=== PATIENT | male | born 1965 | race Caucasian/White ===

== ENCOUNTER 2017-02-11 01:08 | Observation (INO) | payer OTHER, SELFPAY ==
[2017-02-11] MEDS ORDERED: ONDANSETRON 4 MG/2 ML VIAL IVP PRN (01:35)
[2017-02-11] MEDS ORDERED: NALOXONE 0.4 MG/ML 1 ML VIAL IV PRN (01:35)
[2017-02-11] MEDS ORDERED: HYDROmorphone 1 MG/ML 1 ML SYRINGE IV PRN (01:35)
[2017-02-11] MEDS ORDERED: KETOROLAC 30 MG/ML 1 ML VIAL IVP PRN (01:35)
[2017-02-11] MEDS ORDERED: LORazepam 2 MG/ML SYRINGE IV PRN (01:35)
--- NOTE | 2017-02-11 01:35 | ED ---
Pediatric HENT HPI - General Chief Complaint: ENT Stated Complaint: Esophageal Foreign Body Time Seen by Provider: 02/11/17 01:21 Source: patient, EMS, RN notes reviewed, old records reviewed Mode of arrival: EMS Limitations: no limitations - History of Present Illness Initial Comments: Is a 51-year-old male with chief complaint of eating a piece of sore line staking and stuck in his throat. He reports he went to [facility]. They tried glucagon and other measures to help pass the food bolus and it has not helped. Patient reports he is continuing to vomit and spit up his saliva. He denies any shortness of breath or chest pain. Patient reports that he feels the food stuck right in the xiphoid process. Denies any other associated symptoms like abdominal pain. He states he's tried carbonated beverages, warm beverages and medications and nothing is helping. Patient was transferred down here for surgical evaluation. Dr. Harris was contacted. - Related Data Home Medications Medication Instructions Recorded Confirmed No Known Home Medications [No 02/11/17 02/11/17 Known Home Medications] Allergies Allergy/AdvReac Type Severity Reaction Status Date / Time No Known Drug Allergies Allergy Unknown Verified 02/11/17 01:19 Review of Systems ROS Statement: Those systems with pertinent positive or pertinent negative responses have been documented in the HPI. ROS Other: All systems not noted in ROS Statement are negative. Past Medical History Past Medical History: Diabetes Mellitus, GERD/Reflux History of Any Multi-Drug Resistant Organisms: None Reported Past Surgical History: Hernia Repair Past Psychological History: No Psychological Hx Reported Smoking Status: Never smoker Past Alcohol Use History: Daily, Heavy Past Drug Use History: None Reported - Past Family History Father Family Medical History: Cancer, COPD, Hyperlipidemia, Hypertension Mother Family Medical History: Diabetes Mellitus, Rheumatoid Arthritis (RA) Additional Family Medical History / Comment(s): Diverticulitis General Exam - General Exam Comments Initial Comments: Well appearing 31-year-old male. No distress. Patient does appear somewhat uncomfortable and is continuing to vomit and spit up his saliva. Limitations: no limitations General appearance: alert, in no apparent distress Head exam: Present: atraumatic, normocephalic, normal inspection Eye exam: Present: normal appearance, PERRL, EOMI. Absent: scleral icterus, conjunctival injection, periorbital swelling ENT exam: Present: normal exam, mucous membranes moist Neck exam: Present: normal inspection. Absent: tenderness, meningismus, lymphadenopathy Respiratory exam: Present: normal lung sounds bilaterally. Absent: respiratory distress, wheezes, rales, rhonchi, stridor Cardiovascular Exam: Present: regular rate, normal rhythm, normal heart sounds. Absent: systolic murmur, diastolic murmur, rubs, gallop, clicks GI/Abdominal exam: Present: soft, normal bowel sounds. Absent: distended, tenderness, guarding, rebound, rigid Extremities exam: Present: normal inspection, full ROM, normal capillary refill. Absent: tenderness, pedal edema, joint swelling, calf tenderness Back exam: Present: normal inspection Neurological exam: Present: alert, oriented X3, CN II-XII intact Course Vital Signs 02/11/17 02/11/17 01:14 02:37 Temperature 98.2 F 97.6 F Pulse Rate 111 H 95 Respiratory 20 18 Rate Blood Pressure 132/77 123/75 O2 Sat by Pulse 97 95 Oximetry Medical Decision Making - Medical Decision Making This is a 51-year-old male presents emergency Department with chief complaint of Rudolph steak stuck in his esophagus. He reports that the pain is mainly in the sternal notch. Patient states he tried multiple measures to get out of [facility] here was transferred down here. Dr. Harris was contacted. Patient will have the food bolus removed in the morning. Patient will be admitted to observation and kept comfortable until the procedure. Disposition Clinical Impression: Esophageal foreign body Disposition: HOME SELF-CARE Condition: Good Time of Disposition: 01:35
[2017-02-11 02:39] VITALS: RESP 18
[2017-02-11] MEDS: SODIUM CHLORIDE 0.9% 1,000 ML IV SCH ×2 (02:39→11:54)
[2017-02-11 03:44] VITALS: BMI 23.0
[2017-02-11 06:58] LABS: Glucose,Whole Blood 104 mg/dL (75-99)
[2017-02-11] MEDS ORDERED: SODIUM CHLORIDE 0.9% 1,000 ML IV ONE (07:52)
[2017-02-11] MEDS ORDERED: LACTATED RINGERS 1,000 ML IV ONE (08:10)
[2017-02-11 08:13] VITALS: BP 113/71; PULSE 87; TEMP 98.7
[2017-02-11] MEDS ORDERED: PROPOFOL 10 MG/ML 20 ML VIAL IV ONE (08:14)
--- NOTE | 2017-02-11 08:30 | P.PCN ---
Date of Procedure: 02/11/17 Procedure(s) Performed: BRIEF HISTORY: Patient is a 51-year-old, pleasant, white male, was transferred from [facility] with acute for dysphagia. Patient was eating a piece of steak last night and could not swallow any further. He scheduled for an upper endoscopy with foreign body removal this morning. PROCEDURE PERFORMED: Esophagogastroduodenoscopy with biopsy and foreign body removal. PREOPERATIVE DIAGNOSIS: Today for dysphagia. IV sedation per anesthesia. PROCEDURE: After informed consent was obtained, the patient was brought into the endoscopy unit. IV sedation was administered by Anesthesia under continuous monitoring. Initially the Olympus GIF-140 video endoscope was inserted into the mouth. Esophagus intubated without any difficulty. It was gradually advanced into the midesophagus with there was a large piece of meat impacted. Using a snare the piece of meat was withdrawn along with the scope out of the mouth. Esophagus was intubated without any difficulty and was gradually advanced into the stomach and duodenum and carefully examined. The bulb and the second part of the duodenum appeared normal. The scope at this time was withdrawn to the stomach, adequately insufflated with air, and upon careful examination, mucosa of the antrum, body, cardia and the fundus appeared normal. The scope was then withdrawn into the esophagus. Small hiatal hernia noted. The GE junction was located at 38 cm from the incisors. There was long the Palacios's esophagus extending from 28-38 cm from the incisors and multiple biopsies were done from the area. There was an esophageal stricture at 28 cm from the incisors and just proximal to this stricture there are multiple erosions or ulcerations identified consistent with LA grade C reflux esophagitis. The rest of the esophagus appeared normal and the patient tolerated the procedure well. IMPRESSION: 1. Mid esophageal stricture with food impaction status post removal as described above. 2. 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 Multiple erosions or ulcerations this proximal to esophageal stricture consistent with LA grade C reflux esophagitis. RECOMMENDATIONS: The findings of this examination were discussed with the patient . He'll be started on a soft diet and will be discharged home today with outpatient follow-up in 2 weeks. He was advised to take Prilosec over-the- [id number] twice daily..
[2017-02-11] MEDS ORDERED: PANTOPRAZOLE 40 MG/10 ML VIAL IV SCH (09:00)
--- NOTE | 2017-02-11 09:47 | HP ---
DATE OF ADMISSION: 02/11/2017 REASON FOR ADMISSION: Acute food dysphagia. HISTORY OF PRESENT ILLNESS: Patient is a 51-year-old white male transferred from [facility] in the early hours of this morning with acute food dysphagia. Patient apparently went to the emergency room at [facility] with acute food dysphagia after eating a piece of steak last night. He never had similar symptoms in the past. Presently continues to have dysphagia, not able to swallow saliva. Denies any chest pain. PAST MEDICAL HISTORY: None. PAST SURGICAL HISTORY: None. MEDICATIONS AT HOME: None. ALLERGIES: No known drug allergies. SOCIAL HISTORY: No smoking or alcohol use. FAMILY HISTORY: Unremarkable. REVIEW OF SYSTEMS: CARDIOPULMONARY: No chest pain or shortness of breath. ( ) MUSCULOSKELETAL: Unremarkable. SKIN: Unremarkable. ENDOCRINE: Unremarkable. PSYCHIATRIC: Unremarkable. NEUROLOGICAL: Unremarkable. ENT/VISION: Unremarkable. CONSTITUTIONAL: No recent weight loss. PHYSICAL EXAMINATION: Blood pressure is 132/77, pulse is 98.2. HEENT: Unremarkable. Conjunctivae pink. Sclerae anicteric. Oral cavity, no lesions. NECK: No JVD or lymph node enlargement. CHEST: Clear to auscultation. HEART: Regular rate and rhythm. ABDOMEN: Soft. Bowel sounds are positive. No organomegaly. EXTREMITIES: No pedal edema. SKIN: No rashes. NEURO: Alert and oriented x3. No focal deficits. No labs done. IMPRESSION: Acute food dysphagia. PLAN: Will proceed with an upper endoscopy with foreign body removal. Patient understands the risks benefits and potential complications of the procedure.
[2017-02-11 11:55] LABS: Glucose,Whole Blood 94 mg/dL (75-99)
== END 2017-02-11 13:43 | disposition home or self-care (01) ==
LOC: EC 01:08 → 3OBS 02:03
PROVIDERS: ADMIT Internal Medicine Gastroenterology; ATTEND Internal Medicine Gastroenterology
DX: T18.128A Food in esophagus causing other injury, initial encounter (principal); K22.70 Barrett's esophagus without dysplasia; K22.2 Esophageal obstruction; Z82.5 Family history of asthma and other chronic lower respiratory diseases; Z82.49 Family history of ischemic heart disease and other diseases of the circulatory system; Z83.3 Family history of diabetes mellitus; X58.XXXA Exposure to other specified factors, initial encounter
CPT/HCPCS: 96374; 99285; 88305; 43239; 43247; G0378; J2060; J2405; J1170; J2704; C9113

== ENCOUNTER 2018-07-07 13:09 | Emergency (ER) | payer OTHER ==
[2018-07-07 13:30] VITALS: BP 121/80; PULSE 91; RESP 16; TEMP 97.8
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
== END 2018-07-07 14:10 | disposition home or self-care (01) ==
LOC: EC 13:09
DX: Z48.02 Encounter for removal of sutures (principal)
CPT/HCPCS: 99281

== ENCOUNTER 2019-01-17 07:07 | Day surgery (SDC) | payer OTHER ==
[2018-12-24 14:01] VITALS: BMI 26.6
--- NOTE | 2018-12-25 08:20 | P.GSHP ---
History of Present Illness H&P Date: 12/25/18 CHIEF COMPLAINT: GERD HISTORY OF PRESENT ILLNESS: The patient is a 53-year-old male who presents reports gastroesophageal reflux disease. Upper endoscopy was offered for further evaluation and management. PAST MEDICAL HISTORY: Please see list. PAST SURGICAL HISTORY: Please see list. MEDICATIONS: Please see list. ALLERGIES: Please see list. SOCIAL HISTORY: No illicit drug use FAMILY HISTORY: No reports of Crohn disease or ulcerative colitis. REVIEW OF ORGAN SYSTEMS: CONSTITUTIONAL: No reports of fevers or chills. GI: Denies any blood in stools or constipation. PHYSICAL EXAM: VITAL SIGNS: Stable GENERAL: Well-developed and pleasant in no acute distress. HEENT: No scleral icterus. Extraocular movements grossly intact. Moist buccal mucosa. NECK: Supple without lymphadenopathy. CHEST: Unlabored respirations. Equal bilateral excursions. CARDIOVASCULAR: Regular rate and rhythm. Distal 2+ pulses. ABDOMEN: Soft, nondistended. MUSCULOSKELETAL: No clubbing, cyanosis, or edema. ASSESSMENT: 1. Gastroesophageal reflux disease PLAN: 1. Recommend proceeding with an upper endoscopy Past Medical History Past Medical History: Diabetes Mellitus, GERD/Reflux Additional Past Medical History / Comment(s): diet controlled diabetic, hx hiatal hernia, History of Any Multi-Drug Resistant Organisms: None Reported Past Surgical History: Hernia Repair, Orthopedic Surgery Additional Past Surgical History / Comment(s): hiatal hernia repair, rt knee surgery Past Anesthesia/Blood Transfusion Reactions: No Reported Reaction Smoking Status: Never smoker - Past Family History Father Family Medical History: Cancer, COPD, Hyperlipidemia, Hypertension Mother Family Medical History: No Reported History Additional Family Medical History / Comment(s): Diverticulitis Medications and Allergies Home Medications Medication Instructions Recorded Confirmed Type No Known Home Medications 12/24/18 12/24/18 History Allergies Allergy/AdvReac Type Severity Reaction Status Date / Time No Known Drug Allergies Allergy Unknown Verified 12/24/18 13:56
--- NOTE | 2019-01-17 06:00 | P.GSHP ---
History of Present Illness H&P Date: 01/17/19 CHIEF COMPLAINT: GERD HISTORY OF PRESENT ILLNESS: The patient is a 53-year-old male who presents reports gastroesophageal reflux disease. Upper endoscopy was offered for further evaluation and management. PAST MEDICAL HISTORY: Please see list. PAST SURGICAL HISTORY: Please see list. MEDICATIONS: Please see list. ALLERGIES: Please see list. SOCIAL HISTORY: No illicit drug use FAMILY HISTORY: No reports of Crohn disease or ulcerative colitis. REVIEW OF ORGAN SYSTEMS: CONSTITUTIONAL: No reports of fevers or chills. GI: Denies any blood in stools or constipation. PHYSICAL EXAM: VITAL SIGNS: Stable GENERAL: Well-developed and pleasant in no acute distress. HEENT: No scleral icterus. Extraocular movements grossly intact. Moist buccal mucosa. NECK: Supple without lymphadenopathy. CHEST: Unlabored respirations. Equal bilateral excursions. CARDIOVASCULAR: Regular rate and rhythm. Distal 2+ pulses. ABDOMEN: Soft, nondistended. MUSCULOSKELETAL: No clubbing, cyanosis, or edema. ASSESSMENT: 1. Gastroesophageal reflux disease PLAN: 1. Recommend proceeding with an upper endoscopy Past Medical History Past Medical History: Diabetes Mellitus, GERD/Reflux Additional Past Medical History / Comment(s): diet controlled diabetic, hx hiatal hernia, History of Any Multi-Drug Resistant Organisms: None Reported Past Surgical History: Hernia Repair, Orthopedic Surgery Additional Past Surgical History / Comment(s): hiatal hernia repair, rt knee surgery Past Anesthesia/Blood Transfusion Reactions: No Reported Reaction Past Psychological History: No Psychological Hx Reported Smoking Status: Never smoker Past Alcohol Use History: Occasional Past Drug Use History: None Reported - Past Family History Father Family Medical History: Cancer, COPD, Hyperlipidemia, Hypertension Mother Family Medical History: No Reported History Additional Family Medical History / Comment(s): Diverticulitis Medications and Allergies Home Medications Medication Instructions Recorded Confirmed Type Acid Reflux Medication 1 tab PO DAILY 01/15/19 History Allergies Allergy/AdvReac Type Severity Reaction Status Date / Time No Known Drug Allergies Allergy Unknown Verified 01/15/19 15:17
[~2019-01-17 07:07] MED LIST: LACTATED RINGERS 1,000 ML IV SCH; LIDOCAINE 1% 20 ML VIAL (10MG/ML) FOR IV START INTRADERMA PRN
[2019-01-17 07:19] VITALS: RESP 16; TEMP 97.7
[2019-01-17] MEDS ORDERED: PROPOFOL 10 MG/ML 20 ML VIAL IV ONE (07:35)
--- NOTE | 2019-01-17 07:50 | P.PCN ---
Date of Procedure: 01/17/19 Description of Procedure: PREOPERATIVE DIAGNOSIS: Gastroesophageal reflux disease. History of Juanito fundoplasty POSTOPERATIVE DIAGNOSIS: Gastroesophageal reflux disease. History of Juanito fundoplasty Gastritis. Diaphragmatic hiatal hernia, paraesophageal type III OPERATION: Esophagogastroduodenoscopy with biopsies along antrum. SURGEON: Amarilis Byrne MD ANESTHESIA: MAC. INDICATIONS: The patient is a 53-year-old male who presents with a history of reflux disease. Benefits and risks of the procedure were described. Informed consent was obtained. DESCRIPTION: The patient was brought into the endoscopy suite and laid in the left lateral decubitus position. An Olympus gastroscope was passed along the posterior oropharynx down to the distal esophagus where the squamocolumnar junction was encountered at 31 cm from the incisors. The stomach was entered and no bile reflux was found. Additional findings are listed below. Biopsies with cold forceps were obtained of the antrum. The first through third portion of the duodenum was examined and unremarkable. Retroflexion of the scope confirmed Hill grade 4 lower esophageal valve. The squamocolumnar junction demonstrated LA grade B erosive esophagitis. The stomach was desufflated. The patient tolerated the procedure well. FINDINGS: Squamocolumnar junction 31 cm from the incisors. Diaphragmatic hiatus at 39 cm. Hiatal hernia, 8 cm, paraesophageal type III Hill grade 4 lower esophageal valve. LA grade B erosive esophagitis. No active duodenitis. Chronic gastritis, superficial Juanito fundoplasty with slippage into mediastinal RECOMMENDATIONS: Upper endoscopy as needed. Plan - Discharge Summary Discharge Rx Participant: No New Discharge Prescriptions: No Action Omeprazole 40 mg PO DAILY Discharge Medication List Omeprazole 40 mg PO DAILY 01/17/19 [History] Follow up Appointment(s)/Referral(s): Amarilis Byrne MD [STAFF PHYSICIAN] - 1 Week Patient Instructions/Handouts: Hiatal Hernia (DC) Discharge Disposition: HOME SELF-CARE
[2019-01-17 08:23] VITALS: BP 115/75; PULSE 65
== END 2019-01-17 08:40 | disposition home or self-care (01) ==
LOC: ORWHC2ENDO 07:07
PROVIDERS: ATTEND Surgery Plastic and Reconstructive Surgery
DX: K21.0 Gastro-esophageal reflux disease with esophagitis (principal); K29.50 Unspecified chronic gastritis without bleeding; K44.9 Diaphragmatic hernia without obstruction or gangrene; E11.9 Type 2 diabetes mellitus without complications; Z83.6 Family history of other diseases of the respiratory system; Z82.49 Family history of ischemic heart disease and other diseases of the circulatory system; Z80.9 Family history of malignant neoplasm, unspecified
CPT/HCPCS: 88305; 43239; J2704

== ENCOUNTER 2019-04-21 07:39 | Emergency (ER) | payer OTHER ==
[2019-04-21] MEDS ORDERED: SODIUM CHLORIDE 0.9% 1,000 ML IV STA (07:47)
--- NOTE | 2019-04-21 08:04 | ED ---
Dizziness HPI - General Chief Complaint: Syncope Stated Complaint: Near Syncope Time Seen by Provider: 04/21/19 07:47 Source: patient, EMS, RN notes reviewed Mode of arrival: EMS Limitations: no limitations - History of Present Illness Initial Comments: This a 53-year-old male presents emergency Department chief complaint of palpitations, dizziness. Patient states that he was on the bus riding to work in which he states that he started feeling his heart racing states that he had no associated pain but states is just beating fast. Patient states then he became very dizzy and lightheaded. Patient states his symptoms lasted a few minutes and he told the drug abuse treatment specialist called EMS at that time. Patient states symptoms have improved he has no complaints of palpitations or chest pain. Denies any shortness of breath. Patient did have some nausea no vomiting denies any focal weakness no blurred vision. Patient states he takes antiacids no other medications denies any smoking past medical history otherwise. Patient has no prior cardiac disease - Related Data Home Medications Medication Instructions Recorded Confirmed Omeprazole 40 mg PO DAILY 01/17/19 04/21/19 Allergies Allergy/AdvReac Type Severity Reaction Status Date / Time No Known Drug Allergies Allergy Unknown Verified 04/21/19 07:48 Review of Systems ROS Statement: Those systems with pertinent positive or pertinent negative responses have been documented in the HPI. ROS Other: All systems not noted in ROS Statement are negative. Past Medical History Past Medical History: Diabetes Mellitus, GERD/Reflux Additional Past Medical History / Comment(s): diet controlled diabetic, hx hiatal hernia, History of Any Multi-Drug Resistant Organisms: None Reported Past Surgical History: Hernia Repair, Orthopedic Surgery Additional Past Surgical History / Comment(s): hiatal hernia repair, rt knee surgery Past Anesthesia/Blood Transfusion Reactions: No Reported Reaction Past Psychological History: No Psychological Hx Reported Smoking Status: Never smoker Past Alcohol Use History: Occasional Past Drug Use History: None Reported - Past Family History Father Family Medical History: Cancer, COPD, Hyperlipidemia, Hypertension Mother Family Medical History: No Reported History Additional Family Medical History / Comment(s): Diverticulitis General Exam Limitations: no limitations General appearance: alert, in no apparent distress, anxious Head exam: Present: atraumatic, normocephalic, normal inspection Eye exam: Present: normal appearance, PERRL, EOMI. Absent: scleral icterus, conjunctival injection, periorbital swelling ENT exam: Present: normal exam, normal oropharynx, mucous membranes moist Neck exam: Present: normal inspection, full ROM. Absent: tenderness, meningismus, lymphadenopathy Respiratory exam: Present: normal lung sounds bilaterally. Absent: respiratory distress, wheezes, rales, rhonchi, stridor Cardiovascular Exam: Present: regular rate, normal rhythm, normal heart sounds. Absent: systolic murmur, diastolic murmur, rubs, gallop, clicks GI/Abdominal exam: Present: soft, normal bowel sounds. Absent: distended, tenderness, guarding, rebound, rigid Extremities exam: Present: normal inspection, full ROM, normal capillary refill. Absent: tenderness, pedal edema, joint swelling, calf tenderness Neurological exam: Present: alert, oriented X3, CN II-XII intact, reflexes normal. Absent: motor sensory deficit Psychiatric exam: Present: anxious Skin exam: Present: warm, dry, intact, normal color. Absent: rash Course Vital Signs 04/21/19 04/21/19 04/21/19 07:41 07:46 08:00 Temperature 98.4 F Pulse Rate 90 91 Respiratory 18 18 Rate Blood Pressure 128/89 114/91 O2 Sat by Pulse 98 100 97 Oximetry 04/21/19 08:20 Temperature Pulse Rate 85 Respiratory 16 Rate Blood Pressure 118/88 O2 Sat by Pulse 92 L Oximetry EKG Findings - EKG Comments: EKG Findings:: EKG performed at 17:53 normal sinus rhythm rate of 88 KS 166 QRS 82 QT/QTC 358/433 Medical Decision Making - Medical Decision Making 53-year-old male presented from for palpitations. Patient is a symptomatic this time. Patient does report an EKG, chest x-ray, labs and urinalysis. Patient's has no complaints of feeling dizzy. Patient feels comfortable discharge at time and will follow-up with PCP we did discuss return parameters. - Lab Data Result diagrams: 04/21/19 07:45 04/21/19 07:45 Lab Results 04/21/19 04/21/19 04/21/19 Range/Units 07:45 07:45 07:45 WBC 5.7 (3.8-10.6) k/uL RBC 5.08 (4.30-5.90) m/uL Hgb 15.4 (13.0-17.5) gm/dL Hct 47.7 (39.0-53.0) % MCV 94.0 (80.0-100.0) fL MCH 30.2 (25.0-35.0) pg MCHC 32.2 (31.0-37.0) g/dL RDW 14.1 (11.5-15.5) % Plt Count 166 (150-450) k/uL Neutrophils % 73 % Lymphocytes % 18 % Monocytes % 4 % Eosinophils % 3 % Basophils % 0 % Neutrophils # 4.1 (1.3-7.7) k/uL Lymphocytes # 1.0 (1.0-4.8) k/uL Monocytes # 0.2 (0-1.0) k/uL Eosinophils # 0.1 (0-0.7) k/uL Basophils # 0.0 (0-0.2) k/uL PT 9.6 (9.0-12.0) sec INR 0.9 (<1.2) APTT 22.5 (22.0-30.0) sec Sodium 139 (137-145) mmol/L Potassium 4.5 (3.5-5.1) mmol/L Chloride 102 (98-107) mmol/L Carbon Dioxide 25 (22-30) mmol/L Anion Gap 12 mmol/L BUN 14 (9-20) mg/dL Creatinine 0.83 (0.66-1.25) mg/dL Est GFR (CKD-EPI)AfAm >90 (>60 ml/min/1.73 sqM) Est GFR (CKD-EPI)NonAf >90 (>60 ml/min/1.73 sqM) Glucose 148 H (74-99) mg/dL Calcium 9.3 (8.4-10.2) mg/dL Magnesium 1.8 (1.6-2.3) mg/dL Total Bilirubin 0.3 (0.2-1.3) mg/dL AST 28 (17-59) U/L ALT 23 (21-72) U/L Alkaline Phosphatase 75 (38-126) U/L Troponin I (0.000-0.034) ng/mL Total Protein 6.5 (6.3-8.2) g/dL Albumin 4.0 (3.5-5.0) g/dL TSH 1.520 (0.465-4.680) mIU/L Urine Color Urine Appearance (Clear) Urine pH (5.0-8.0) Ur Specific [place] (1.001-1.035) Urine Protein (Negative) Urine Glucose (UA) (Negative) Urine Ketones (Negative) Urine Blood (Negative) Urine Nitrite (Negative) Urine Bilirubin (Negative) Urine Urobilinogen (<2.0) mg/dL Ur Leukocyte Esterase (Negative) 04/21/19 04/21/19 Range/Units 07:45 08:35 WBC (3.8-10.6) k/uL RBC (4.30-5.90) m/uL Hgb (13.0-17.5) gm/dL Hct (39.0-53.0) % MCV (80.0-100.0) fL MCH (25.0-35.0) pg MCHC (31.0-37.0) g/dL RDW (11.5-15.5) % Plt Count (150-450) k/uL Neutrophils % % Lymphocytes % % Monocytes % % Eosinophils % % Basophils % % Neutrophils # (1.3-7.7) k/uL Lymphocytes # (1.0-4.8) k/uL Monocytes # (0-1.0) k/uL Eosinophils # (0-0.7) k/uL Basophils # (0-0.2) k/uL PT (9.0-12.0) sec INR (<1.2) APTT (22.0-30.0) sec Sodium (137-145) mmol/L Potassium (3.5-5.1) mmol/L Chloride (98-107) mmol/L Carbon Dioxide (22-30) mmol/L Anion Gap mmol/L BUN (9-20) mg/dL Creatinine (0.66-1.25) mg/dL Est GFR (CKD-EPI)AfAm (>60 ml/min/1.73 sqM) Est GFR (CKD-EPI)NonAf (>60 ml/min/1.73 sqM) Glucose (74-99) mg/dL Calcium (8.4-10.2) mg/dL Magnesium (1.6-2.3) mg/dL Total Bilirubin (0.2-1.3) mg/dL AST (17-59) U/L ALT (21-72) U/L Alkaline Phosphatase (38-126) U/L Troponin I <0.012 (0.000-0.034) ng/mL Total Protein (6.3-8.2) g/dL Albumin (3.5-5.0) g/dL TSH (0.465-4.680) mIU/L Urine Color Yellow Urine Appearance Clear (Clear) Urine pH 5.0 (5.0-8.0) Ur Specific [place] 1.021 (1.001-1.035) Urine Protein Negative (Negative) Urine Glucose (UA) Negative (Negative) Urine Ketones 1+ H (Negative) Urine Blood Negative (Negative) Urine Nitrite Negative (Negative) Urine Bilirubin Negative (Negative) Urine Urobilinogen <2.0 (<2.0) mg/dL Ur Leukocyte Esterase Negative (Negative) Disposition Clinical Impression: Palpitations Disposition: HOME SELF-CARE Condition: Stable Instructions (If sedation given, give patient instructions): Heart Palpitations (ED) Additional Instructions: Please return to the Emergency Department if symptoms worsen or any other concerns. Is patient prescribed a controlled substance at d/c from ED?: No Referrals: Nonstaff,Physician [Primary Care Provider] - 1-2 days Time of Disposition: 09:53
[2019-04-21 08:11] LABS: Basophils % (A) 0 %; Eosinophils # (A) 0.1 k/uL (0-0.7); Eosinophils % (A) 3 %; HCT 47.7 % (39.0-53.0); HGB 15.4 gm/dL (13.0-17.5); Lymphocytes % (A) 18 %; MCH 30.2 pg (25.0-35.0); MCHC 32.2 g/dL (31.0-37.0); Mean Platelet Volume 7.8; Monocytes # (A) 0.2 k/uL (0-1.0); Monocytes % (A) 4 %; Neutrophils # (A) 4.1 k/uL (1.3-7.7); Neutrophils % (A) 73 %; Platelet Count 166 k/uL (150-450); RBC 5.08 m/uL (4.30-5.90); RDW 14.1 % (11.5-15.5); WBC 5.7 k/uL (3.8-10.6)
[2019-04-21 08:19] LABS: INR 0.9 (<1.2); Partial Thromboplastin Time 22.5 sec (22.0-30.0); Prothrombin Time 9.6 sec (9.0-12.0)
[2019-04-21 08:27] LABS: ALT 23 U/L (21-72); AST 28 U/L (17-59); African American GFR (CKD) >90 (>60 ml/min/1.73 sqM); Alkaline Phosphatase 75 U/L (38-126); Anion Gap 12 mmol/L; Blood Urea Nitrogen 14 mg/dL (9-20); Calcium 9.3 mg/dL (8.4-10.2); Carbon Dioxide 25 mmol/L (22-30); Chloride 102 mmol/L (98-107); Glucose 148 mg/dL (74-99); Magnesium 1.8 mg/dL (1.6-2.3); Potassium 4.5 mmol/L (3.5-5.1); Sodium 139 mmol/L (137-145); Total Bilirubin 0.3 mg/dL (0.2-1.3); Total Protein 6.5 g/dL (6.3-8.2)
--- NOTE | 2019-04-21 08:38 | XR ---
EXAMINATION TYPE: XR chest 2V DATE OF EXAM: 04/21/2019 COMPARISON: 06/27/2016 INDICATION: Syncope, chest pain TECHNIQUE: Frontal and lateral views of the chest are obtained. FINDINGS: The heart size is normal. The pulmonary vasculature is normal. The lungs are clear. IMPRESSION: 1. No acute pulmonary process.
[2019-04-21 08:50] LABS: Appearance,Urine Clear (Clear); Bilirubin,Urine Negative (Negative); Blood,Urine Negative (Negative); Color,Urine Yellow; Glucose,Urine (UA) Negative (Negative); Ketones,Urine 1+ (Negative); Leukocyte Esterase,Urine Negative (Negative); Nitrite,Urine Negative (Negative); Protein,Urine Negative (Negative); Specific Gravity,Urine 1.021 (1.001-1.035); Urobilinogen,Urine <2.0 mg/dL (<2.0)
[2019-04-21 10:48] VITALS: BP 115/87; PULSE 87; RESP 18; TEMP 97.1
== END 2019-04-21 10:48 | disposition home or self-care (01) ==
LOC: EC 07:39
DX: R00.2 Palpitations (principal); R42 Dizziness and giddiness; R11.0 Nausea; K21.9 Gastro-esophageal reflux disease without esophagitis; E11.9 Type 2 diabetes mellitus without complications; Z79.899 Other long term (current) drug therapy; Z82.49 Family history of ischemic heart disease and other diseases of the circulatory system
CPT/HCPCS: 36415; 71046; 80053; 81003; 83735; 84443; 84484; 85025; 85610; 85730; 93005; 96360; 96361; 99285

== ENCOUNTER 2019-12-18 20:02 | Observation (INO) | payer OTHER ==
[2019-12-18] MEDS ORDERED: LORazepam 2 MG/ML INJ IM STA (21:16)
[2019-12-18] MEDS ORDERED: diphenhydrAMINE 50 MG/ML 1 ML VIAL IM STA (21:16)
[2019-12-18 21:36] LABS: Basophils % (A) 1 %; Eosinophils # (A) 0.1 k/uL (0-0.7); Eosinophils % (A) 2 %; HCT 44.9 % (39.0-53.0); HGB 14.9 gm/dL (13.0-17.5); Lymphocytes # (A) 1.6 k/uL (1.0-4.8); Lymphocytes % (A) 35 %; MCH 32.8 pg (25.0-35.0); MCHC 33.1 g/dL (31.0-37.0); MCV 99.3 fL (80.0-100.0); Mean Platelet Volume 7.6; Monocytes # (A) 0.3 k/uL (0-1.0); Monocytes % (A) 6 %; Neutrophils # (A) 2.5 k/uL (1.3-7.7); Neutrophils % (A) 54 %; Platelet Count 237 k/uL (150-450); RBC 4.52 m/uL (4.30-5.90); RDW 13.2 % (11.5-15.5); WBC 4.6 k/uL (3.8-10.6)
[2019-12-18 21:46] LABS: ALT 40 U/L (4-49); AST 76 U/L (17-59); African American GFR (CKD) >90 (>60 ml/min/1.73 sqM); Albumin 3.4 g/dL (3.5-5.0); Alkaline Phosphatase 76 U/L (38-126); Amphetamine Screen,Urine Not Detected (NotDetected); Anion Gap 8 mmol/L; Barbiturate Screen,Urine Not Detected (NotDetected); Benzodiazepines Screen,Urine Detected (NotDetected); Blood Urea Nitrogen 8 mg/dL (9-20); Calcium 8.3 mg/dL (8.4-10.2); Carbon Dioxide 25 mmol/L (22-30); Chloride 108 mmol/L (98-107); Cocaine Screen,Urine Not Detected (NotDetected); Glucose 118 mg/dL (74-99); Methadone Screen, Urine Not Detected (NotDetected); Non-African American GFR(CKD) >90 (>60 ml/min/1.73 sqM); Opiate Screen,Urine Not Detected (NotDetected); Oxycodone Screen, Urine Not Detected (NotDetected); Phencyclidine Screen,Urine Not Detected (NotDetected); Potassium 4.3 mmol/L (3.5-5.1); Sodium 141 mmol/L (137-145); Total Bilirubin <0.1 mg/dL (0.2-1.3); Total Protein 5.9 g/dL (6.3-8.2); Tricyclic Antidepressant,Urine Not Detected (NotDetected); Urn Cannabinoid Scrn Not Detected (NotDetected)
[2019-12-18 21:59] LABS: Alcohol 274 mg/dL
[2019-12-18] MEDS ORDERED: NALOXONE 0.4 MG/ML 1 ML VIAL IV PRN (22:17)
--- NOTE | 2019-12-18 22:20 | ED ---
Psych HPI - General Chief Complaint: Psychiatric Symptoms Stated Complaint: Mental Health Time Seen by Provider: 12/18/19 20:17 Source: patient - History of Present Illness Initial Comments: Patient is a 54-year-old male with past history of diabetes and reflux who presents to the emergency department accompanied by police. The patient has been petitioned for voicing suicidal thoughts. The patient reports that his tenant called as he was concerned about his mental health. The patient does admit that he lost his fiance close to 9 years ago. Her was in the beginning of January. He states that around this time he becomes very depressed and "to drink daily. The alcohol does accelerate his depression. He did make some comments that he wanted to harm himself. He does follow up with a y chiatrist in regard to his symptoms. States he's never required inpatient hospitalization. Police did escort the patient to the hospital. He does agree that he made these statements. He is combative with staff and attempting to leave. He denies use of any other substances in an attempt to harm himself. Denies any homicidal thoughts. No hallucinations or delusions. There are no other alleviating, precipitating or modifying factors - Related Data Home Medications Medication Instructions Recorded Confirmed Omeprazole 40 mg PO DAILY@0500 01/17/19 12/19/19 Previous Rx's Medication Instructions Recorded Thiamine [Vitamin B-1] 100 mg PO DAILY tab 12/20/19 Allergies Allergy/AdvReac Type Severity Reaction Status Date / Time No Known Drug Allergies Allergy Unknown Verified 12/19/19 08:14 Review of Systems ROS Statement: Those systems with pertinent positive or pertinent negative responses have been documented in the HPI. ROS Other: All systems not noted in ROS Statement are negative. Past Medical History Past Medical History: Diabetes Mellitus, GERD/Reflux Additional Past Medical History / Comment(s): diet controlled diabetic, hx hiatal hernia, History of Any Multi-Drug Resistant Organisms: None Reported Past Surgical History: Hernia Repair, Orthopedic Surgery Additional Past Surgical History / Comment(s): hiatal hernia repair, rt knee surgery Past Anesthesia/Blood Transfusion Reactions: No Reported Reaction Past Psychological History: No Psychological Hx Reported Smoking Status: Never smoker Past Alcohol Use History: Occasional Past Drug Use History: None Reported - Past Family History Father Family Medical History: Cancer, COPD, Hyperlipidemia, Hypertension Mother Family Medical History: No Reported History Additional Family Medical History / Comment(s): Diverticulitis General Exam General appearance: alert, appears intoxicated Head exam: Present: atraumatic, normocephalic, normal inspection Eye exam: Present: normal appearance, PERRL, EOMI. Absent: scleral icterus, conjunctival injection, periorbital swelling ENT exam: Present: normal exam, mucous membranes moist Neck exam: Present: normal inspection. Absent: tenderness, meningismus, lymphadenopathy Respiratory exam: Present: normal lung sounds bilaterally. Absent: respiratory distress, wheezes, rales, rhonchi, stridor Cardiovascular Exam: Present: regular rate, normal rhythm, normal heart sounds. Absent: systolic murmur, diastolic murmur, rubs, gallop, clicks GI/Abdominal exam: Present: soft, normal bowel sounds. Absent: distended, tenderness, guarding, rebound, rigid Extremities exam: Present: normal inspection, full ROM, normal capillary refill. Absent: tenderness, pedal edema, joint swelling, calf tenderness Back exam: Present: normal inspection Neurological exam: Present: altered, oriented X3, CN II-XII intact Psychiatric exam: Present: depressed, agitated Skin exam: Present: warm, dry, intact, normal color. Absent: rash Course Vital Signs 12/18/19 12/19/19 20:15 02:30 Temperature 98 F 97.6 F Pulse Rate 104 H 84 Respiratory 18 16 Rate Blood Pressure 130/84 106/80 O2 Sat by Pulse 95 96 Oximetry Medical Decision Making - Medical Decision Making Upon arrival the patient was placed into room 13. Breathalyzer testing was performed and the patient does have been alcohol level of 289. I am able to perform my initial assessment on the patient. The patient then becomes combative and attempts to leave. The patient was given 50 mg of Benadryl and 2 mg of Ativan IM. The patient then becomes sedated enough to where we are complete laboratory studies on the patient. Urine drug screen does demonstrate benzodiazepines. Alcohol level is 274. Because the patient's elevated blood alcohol level I did recommend hospitalization until the patient is sober for which then psychiatry can consult. The patient was admitted to Dr. Tao. He is awaiting a bed on the floor - Lab Data Result diagrams: 12/19/19 08:38 12/19/19 08:38 Lab Results 12/18/19 12/18/19 12/18/19 Range/Units 21:25 21:25 21:25 WBC 4.6 (3.8-10.6) k/uL RBC 4.52 (4.30-5.90) m/uL Hgb 14.9 (13.0-17.5) gm/dL Hct 44.9 (39.0-53.0) % MCV 99.3 (80.0-100.0) fL MCH 32.8 (25.0-35.0) pg MCHC 33.1 (31.0-37.0) g/dL RDW 13.2 (11.5-15.5) % Plt Count 237 (150-450) k/uL Neutrophils % 54 % Lymphocytes % 35 % Monocytes % 6 % Eosinophils % 2 % Basophils % 1 % Neutrophils # 2.5 (1.3-7.7) k/uL Lymphocytes # 1.6 (1.0-4.8) k/uL Monocytes # 0.3 (0-1.0) k/uL Eosinophils # 0.1 (0-0.7) k/uL Basophils # 0.0 (0-0.2) k/uL Sodium 141 (137-145) mmol/L Potassium 4.3 (3.5-5.1) mmol/L Chloride 108 H (98-107) mmol/L Carbon Dioxide 25 (22-30) mmol/L Anion Gap 8 mmol/L BUN 8 L (9-20) mg/dL Creatinine 0.83 (0.66-1.25) mg/dL Est GFR (CKD-EPI)AfAm >90 (>60 ml/min/1.73 sqM) Est GFR (CKD-EPI)NonAf >90 (>60 ml/min/1.73 sqM) Glucose 118 H (74-99) mg/dL Calcium 8.3 L (8.4-10.2) mg/dL Total Bilirubin <0.1 L (0.2-1.3) mg/dL AST 76 H (17-59) U/L ALT 40 (4-49) U/L Alkaline Phosphatase 76 (38-126) U/L Total Protein 5.9 L (6.3-8.2) g/dL Albumin 3.4 L (3.5-5.0) g/dL Urine Opiates Screen Not Detected (NotDetected) Ur Oxycodone Screen Not Detected (NotDetected) Urine Methadone Screen Not Detected (NotDetected) Ur Propoxyphene Screen Not Detected (NotDetected) Ur Barbiturates Screen Not Detected (NotDetected) U Tricyclic Antidepress Not Detected (NotDetected) Ur Phencyclidine Scrn Not Detected (NotDetected) Ur Amphetamines Screen Not Detected (NotDetected) U Methamphetamines Scrn Not Detected (NotDetected) U Benzodiazepines Scrn Detected H (NotDetected) Urine Cocaine Screen Not Detected (NotDetected) U Marijuana (THC) Screen Not Detected (NotDetected) Serum Alcohol 274 H* mg/dL Disposition Clinical Impression: Depression, Alcohol intoxication Disposition: ADMITTED IP TO THIS [facility] Condition: Stable Is patient prescribed a controlled substance at d/c from ED?: No Decision to Admit Reason: Admit from EC Decision Date: 12/18/19 Decision Time: 22:16
[2019-12-18] MEDS ORDERED: THIAMINE 100 MG/ML 2 ML VIAL IM STA (23:30)
[2019-12-18] MEDS ORDERED: LORazepam 2 MG/ML INJ IV PRN ×2 (23:30)
[2019-12-19] MEDS: THIAMINE 100 MG TAB PO SCH ×3 (02:39→19:11)
[2019-12-19 09:01] LABS: Basophils % (A) 1 %; Eosinophils # (A) 0.1 k/uL (0-0.7); Eosinophils % (A) 2 %; HCT 40.2 % (39.0-53.0); HGB 13.3 gm/dL (13.0-17.5); Lymphocytes # (A) 0.8 k/uL (1.0-4.8); Lymphocytes % (A) 21 %; MCH 32.8 pg (25.0-35.0); MCV 99.3 fL (80.0-100.0); Mean Platelet Volume 7.9; Monocytes # (A) 0.3 k/uL (0-1.0); Monocytes % (A) 7 %; Neutrophils # (A) 2.7 k/uL (1.3-7.7); Neutrophils % (A) 67 %; Platelet Count 200 k/uL (150-450); RBC 4.05 m/uL (4.30-5.90); RDW 13.1 % (11.5-15.5)
[2019-12-19 09:32] LABS: African American GFR (CKD) >90 (>60 ml/min/1.73 sqM); Anion Gap 6 mmol/L; Blood Urea Nitrogen 9 mg/dL (9-20); Calcium 8.2 mg/dL (8.4-10.2); Carbon Dioxide 26 mmol/L (22-30); Chloride 105 mmol/L (98-107); Glucose 105 mg/dL (74-99); Non-African American GFR(CKD) >90 (>60 ml/min/1.73 sqM); Potassium 4.3 mmol/L (3.5-5.1); Sodium 137 mmol/L (137-145)
[2019-12-19] MEDS: LORazepam 2 MG/ML INJ IV PRN ×2 (09:43→19:29)
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
--- NOTE | 2019-12-19 15:52 | P.HPIM ---
History of Present Illness 54-year-old male came in after he was petitioned as he wants to blow his brains out with a done. Patient the was intoxicated with alcohol yesterday. Patient denies any suicidal ideations now but patient is severely depressed and that is almost tearful while interviewing the patient. Patient has been drinking alcohol regular basis admits to drinking only 2 drinks per day now but patient is having significant withdrawals today morning. Patient has been depressed since the demise of his fiance 6 years ago. Patient has multiple "appointments because of which doesn't want to go to psychiatric floor wanted to go to [facility]. Psychiatric evaluated the patient is recommending inpatient psychiatric hospitalization. Blood alcohol level on admission is 274 patient denied any fever chills abdominal pain nausea vomiting diarrhea. Review of Systems REVIEW OF SYSTEMS: CONSTITUTIONAL: No fever, no malaise, no fatigue. HEENT: No recent visual problems or hearing problems. Denied any sore throat. CARDIOVASCULAR: No chest pain, orthopnea, PND, no palpitations, no syncope. PULMONARY: No shortness of breath, no cough, no hemoptysis. GASTROINTESTINAL: No diarrhea, no nausea, no vomiting, no abdominal pain. NEUROLOGICAL: No headaches, no weakness, no numbness. HEMATOLOGICAL: Denies any bleeding or petechiae. GENITOURINARY: Denies any burning micturition, frequency, or urgency. MUSCULOSKELETAL/RHEUMATOLOGICAL: Denies any joint pain, swelling, or any muscle pain. ENDOCRINE: Denies any polyuria or polydipsia. The rest of the 14-point review of systems is negative. Past Medical History Past Medical History: Diabetes Mellitus, GERD/Reflux Additional Past Medical History / Comment(s): diet controlled diabetic, hx hiatal hernia, History of Any Multi-Drug Resistant Organisms: None Reported Past Surgical History: Hernia Repair, Orthopedic Surgery Additional Past Surgical History / Comment(s): hiatal hernia repair, rt knee surgery Past Anesthesia/Blood Transfusion Reactions: No Reported Reaction Past Psychological History: No Psychological Hx Reported Smoking Status: Never smoker Past Alcohol Use History: Occasional Past Drug Use History: None Reported - Past Family History Father Family Medical History: Cancer, COPD, Hyperlipidemia, Hypertension Mother Family Medical History: No Reported History Additional Family Medical History / Comment(s): Diverticulitis Medications and Allergies Home Medications Medication Instructions Recorded Confirmed Type Omeprazole 40 mg PO DAILY@0500 01/17/19 12/19/19 History Allergies Allergy/AdvReac Type Severity Reaction Status Date / Time No Known Drug Allergies Allergy Unknown Verified 12/19/19 08:14 Physical Exam Vitals: Vital Signs Temp Pulse Pulse Resp BP BP Pulse Ox 12/19/19 08:00 69 17 12/19/19 07:00 98.3 F 69 17 107/53 97 12/19/19 03:20 98.6 F 69 17 115/77 93 L 12/19/19 02:30 97.6 F 84 16 106/80 96 12/18/19 20:15 98 F 104 H 18 130/84 95 Intake and Output 12/19/19 12/19/19 12/19/19 06:59 14:59 22:59 Intake Total 480 450 Balance 480 450 Intake: Oral 480 450 Other: # Voids 3 Weight 86.183 kg PHYSICAL EXAMINATION: GENERAL: The patient is alert and oriented x3, not in any acute distress. Obe se. Appears to be depressed really tearful HEENT: Pupils are round and equally reacting to light. EOMI. No scleral icterus. No conjunctival pallor. Normocephalic, atraumatic. No pharyngeal erythema. No thyromegaly. CARDIOVASCULAR: S1 and S2 present. No murmurs, rubs, or gallops. PULMONARY: Chest is clear to auscultation, no wheezing or crackles. ABDOMEN: Soft, nontender, nondistended, normoactive bowel sounds. No palpable organomegaly. MUSCULOSKELETAL: No joint swelling or deformity. EXTREMITIES: No cyanosis, clubbing, or pedal edema. NEUROLOGICAL: Gross neurological examination did not reveal any focal deficits. SKIN: No rashes. Results CBC & Chem 7: 12/19/19 08:38 12/19/19 08:38 Labs: Abnormal Lab Results - Last 24 Hours (Table) 12/18/19 12/18/19 12/19/19 Range/Units 21:25 21:25 08:38 RBC 4.05 L (4.30-5.90) m/uL Lymphocytes # 0.8 L (1.0-4.8) k/uL Chloride 108 H (98-107) mmol/L BUN 8 L (9-20) mg/dL Glucose 118 H (74-99) mg/dL Calcium 8.3 L (8.4-10.2) mg/dL Total Bilirubin <0.1 L (0.2-1.3) mg/dL AST 76 H (17-59) U/L Total Protein 5.9 L (6.3-8.2) g/dL Albumin 3.4 L (3.5-5.0) g/dL U Benzodiazepines Scrn Detected H (NotDetected) Serum Alcohol 274 H* mg/dL 12/19/19 Range/Units 08:38 RBC (4.30-5.90) m/uL Lymphocytes # (1.0-4.8) k/uL Chloride (98-107) mmol/L BUN (9-20) mg/dL Glucose 105 H (74-99) mg/dL Calcium 8.2 L (8.4-10.2) mg/dL Total Bilirubin (0.2-1.3) mg/dL AST (17-59) U/L Total Protein (6.3-8.2) g/dL Albumin (3.5-5.0) g/dL U Benzodiazepines Scrn (NotDetected) Serum Alcohol mg/dL Assessment and Plan Plan: -Alcohol abuse: Counseling was provided. Patient was started on thiamine mult ivitamin supplementation -Major depression suicidal ideation patient is a sitter in place will be di scharged most probably tomorrow to psychiatric facility -Alcohol withdrawal: Patient is on Ativan CIWA protocol will be monitored overnight today. He doesn't have significant withdrawals patient will be cleared medically to be discharged to psychiatric floor -Gastroesophageal reflux disease
[2019-12-19] MEDS: PANTOPRAZOLE 40 MG TABLET PO SCH (19:16)
[2019-12-20] MEDS: THIAMINE 100 MG TAB PO SCH ×2 (07:10→16:49)
[2019-12-20] MEDS: PANTOPRAZOLE 40 MG TABLET PO SCH (07:10)
--- NOTE | 2019-12-20 12:02 | P.DS ---
Providers Date of admission: 12/18/19 22:17 Attending physician: Amparo Tao Consults: 12/18/19 22:17 Consult Physician Urgent Consulting Provider: Jeremy Frost Consult Reason/Comments: depression with reported suicidal ideations Do you want consulting provider notified?: Yes Primary care physician: Devin Bauman MD Hospital Course: 54-year-old male came in after he was petitioned as he wants to blow his brains out with a done. Patient the was intoxicated with alcohol yesterday. Patient denies any suicidal ideations now but patient is severely depressed and that is almost tearful while interviewing the patient. Patient has been drinking alcohol regular basis admits to drinking only 2 drinks per day now but patient is having significant withdrawals today morning. Patient has been depressed since the demise of his fiance 6 years ago. Patient has multiple "appointments because of which doesn't want to go to psychiatric floor wanted to go to [facility]. Psychiatric evaluated the patient is recommending inpatient psychiatric hospitalization. Blood alcohol level on admission is 274 patient denied any fever chills abdominal pain nausea vomiting diarrhea. 12/20/2019 No overnight events patient only required one and Ativan last night patient is medically stable to be discharged to psychiatric floor. PHYSICAL EXAMINATION: GENERAL: The patient is alert and oriented x3, not in any acute distress. Obese. Appears to be depressed really tearful HEENT: Pupils are round and equally reacting to light. EOMI. No scleral icterus. No conjunctival pallor. Normocephalic, atraumatic. No pharyngeal erythema. No thyromegaly. CARDIOVASCULAR: S1 and S2 present. No murmurs, rubs, or gallops. PULMONARY: Chest is clear to auscultation, no wheezing or crackles. ABDOMEN: Soft, nontender, nondistended, normoactive bowel sounds. No palpable organomegaly. MUSCULOSKELETAL: No joint swelling or deformity. EXTREMITIES: No cyanosis, clubbing, or pedal edema. NEUROLOGICAL: Gross neurological examination did not reveal any focal deficits. SKIN: No rashes. Assessment and Plan Plan: -Alcohol abuse: -Major depression suicidal ideation, patient will be discharged to psychiatric floor -Alcohol withdrawal: Patient is on Ativan CIWA protocol, no withdrawal at this time -Gastroesophageal reflux disease Patient Condition at Discharge: Stable Plan - Discharge Summary New Discharge Prescriptions: Continue Omeprazole 40 mg PO DAILY@0500 Discharge Medication List Omeprazole 40 mg PO DAILY@0500 01/17/19 [History] Follow up Appointment(s)/Referral(s): Devin Bauman MD [Primary Care Provider] - 1-2 days Discharge Disposition: TRANSFER TO PSYCH HOSP/UNIT
[2019-12-20 15:49] VITALS: BP 113/71; PULSE 90; RESP 17; TEMP 99.7
== END 2019-12-20 18:43 | disposition home or self-care (01) ==
LOC: EC 20:02 → 5NMEDONC 22:17 → 4SSUR 12-19 02:20
PROVIDERS: ADMIT Hospitalist; ATTEND Hospitalist
DX: F10.229 Alcohol dependence with intoxication, unspecified (principal); F32.9 Major depressive disorder, single episode, unspecified; F43.10 Post-traumatic stress disorder, unspecified; R45.851 Suicidal ideations; E11.9 Type 2 diabetes mellitus without complications; K21.9 Gastro-esophageal reflux disease without esophagitis; Y90.8 Blood alcohol level of 240 mg/100 ml or more; Z79.899 Other long term (current) drug therapy; Z82.5 Family history of asthma and other chronic lower respiratory diseases; Z82.49 Family history of ischemic heart disease and other diseases of the circulatory system; Z83.430 Family history of elevated lipoprotein(a); Z80.9 Family history of malignant neoplasm, unspecified; Z83.79 Family history of other diseases of the digestive system
CPT/HCPCS: 96376; 96374; 82075; 96372 ×2; 99284; 36415; 80053; 80048; 85025 ×2; 80306; G0378 ×4; G0480; J2060 ×2; J1200; J3411; 80320

== ENCOUNTER 2020-10-03 00:04 | Emergency (ER) | payer OTHER ==
[2020-10-03] MEDS ORDERED: AMOXIC-POT CLAV 875-125MG 1 EACH TAB PO STA (01:33)
--- NOTE | 2020-10-03 07:41 | ED ---
Psych HPI - General Source: patient Mode of arrival: ambulatory - History of Present Illness MD Complaint: suicidal ideation -: minutes(s) Associated Psychiatric Symptoms: none, visual hallucinations Quality: resolved prior to arrival Improves With: none Worsens With: none <Rodrigue Muse - Last Filed: 10/03/20 07:38> <Kennedy Lema - Last Filed: 10/03/20 13:12> - General Chief Complaint: Psychiatric Symptoms Stated Complaint: Mental Health Time Seen by Provider: 10/03/20 00:22 - History of Present Illness Initial Comments: Patient's 55-year-old man brought to have psychiatric evaluation. Police were called to his residence by roommates after he had been having hallucination of a spider crawling on his arm. While the police were there, the patient is alleged to have formed a gun with his hand and put against his head and then asked police to give him one of the guns. They therefore here brought him here to have psychiatric evaluation. (Rodrigue Muse) - Related Data Home Medications Medication Instructions Recorded Confirmed Omeprazole 40 mg PO DAILY 01/17/19 10/03/20 Aspirin EC [Ecotrin] 325 mg PO DAILY PRN 10/03/20 10/03/20 Allergies Allergy/AdvReac Type Severity Reaction Status Date / Time No Known Drug Allergies Allergy Unknown Verified 10/03/20 10:13 Review of Systems ROS Other: All systems not noted in ROS Statement are negative. Constitutional: Denies: fever, chills Respiratory: Denies: cough, dyspnea Cardiovascular: Denies: chest pain, palpitations, syncope Gastrointestinal: Denies: abdominal pain, vomiting Musculoskeletal: Denies: back pain Skin: Denies: rash Neurological: Denies: headache Psychiatric: Reports: visual hallucinations. Denies: depression, auditory hallucinations, homicidal thoughts, suicidal thoughts <Rodrigue Muse - Last Filed: 10/03/20 07:38> ROS Other: All systems not noted in ROS Statement are negative. <Kennedy Lema - Last Filed: 10/03/20 13:12> ROS Statement: Those systems with pertinent positive or pertinent negative responses have been documented in the HPI. Past Medical History Past Medical History: Diabetes Mellitus, GERD/Reflux Additional Past Medical History / Comment(s): diet controlled diabetic, hx hiatal hernia, History of Any Multi-Drug Resistant Organisms: None Reported Past Surgical History: Hernia Repair, Orthopedic Surgery Additional Past Surgical History / Comment(s): hiatal hernia repair, rt knee surgery Past Anesthesia/Blood Transfusion Reactions: No Reported Reaction Past Psychological History: PTSD Smoking Status: Never smoker Past Alcohol Use History: Daily Past Drug Use History: None Reported - Past Family History Father Family Medical History: Cancer, COPD, Hyperlipidemia, Hypertension Mother Family Medical History: No Reported History Additional Family Medical History / Comment(s): Diverticulitis <Rodrigue Muse - Last Filed: 10/03/20 07:38> General Exam Limitations: no limitations General appearance: alert, in no apparent distress Head exam: Present: atraumatic, normocephalic Eye exam: Present: normal appearance. Absent: scleral icterus, conjunctival injection Respiratory exam: Present: normal lung sounds bilaterally. Absent: respiratory distress, wheezes, rales, rhonchi, stridor Cardiovascular Exam: Present: regular rate, normal rhythm, normal heart sounds. Absent: systolic murmur, diastolic murmur, rubs, gallop GI/Abdominal exam: Present: soft. Absent: tenderness, guarding, rebound Extremities exam: Present: normal inspection, normal capillary refill. Absent: pedal edema, calf tenderness Back exam: Present: normal inspection Neurological exam: Present: alert Psychiatric exam: Absent: depressed, agitated, anxious, flat affect, homicidal ideation, suicidal ideation Skin exam: Present: warm, dry, intact, normal color. Absent: rash <Rodrigue Muse - Last Filed: 10/03/20 07:38> Course Vital Signs 10/03/20 10/03/20 00:12 10:11 Temperature 98.3 F Pulse Rate 104 H 87 Respiratory 18 16 Rate Blood Pressure 123/87 158/93 O2 Sat by Pulse 95 99 Oximetry Medical Decision Making <Kennedy Lema - Last Filed: 10/03/20 13:12> - Medical Decision Making Patient was seen by mental health services with plan for discharge. Patient reevaluated by myself, Dr. Lema. Patient resting comfortably at bedside. Patient denies suicidal ideation and does contract for safety. (Kennedy Lema) Disposition <Rodrigue Muse - Last Filed: 10/03/20 07:38> Is patient prescribed a controlled substance at d/c from ED?: No Time of Disposition: 13:12 <Kennedy Lema - Last Filed: 10/03/20 13:12> Clinical Impression: Alcohol intoxication, Hallucinations Disposition: HOME SELF-CARE Condition: Stable Instructions (If sedation given, give patient instructions): Hallucinations (ED), Alcohol Intoxication (ED) Additional Instructions: Please follow-up with mental health services as directed. Please also follow-up to primary care physician in the next day or 2 for recheck. Return for thoughts of self-harm, worsening symptoms or any other concerns. Avoid alcohol. Referrals: Devin Bauman MD [Primary Care Provider] - 1-2 days
[2020-10-03] MEDS ORDERED: IBUPROFEN 800 MG TAB PO STA (09:12)
[2020-10-03 13:18] VITALS: BP 148/80; PULSE 88; RESP 18; TEMP 98.6
== END 2020-10-03 13:17 | disposition home or self-care (01) ==
LOC: EC 00:04
DX: F10.129 Alcohol abuse with intoxication, unspecified (principal); R44.1 Visual hallucinations; K21.9 Gastro-esophageal reflux disease without esophagitis; Y90.9 Presence of alcohol in blood, level not specified; Z79.899 Other long term (current) drug therapy
CPT/HCPCS: 82075; 99285

== ENCOUNTER → 2020-11-12 | Outpatient (CLI) | payer OTHER ==
--- NOTE | 2020-11-12 13:58 | US ---
EXAMINATION TYPE: US liver DATE OF EXAM: 11/12/2020 COMPARISON: CT 2016 CLINICAL HISTORY: R74.01 ELEVATED LIVER TRANSAMINASELEVELS. EXAM MEASUREMENTS: Liver Length: 16.2 cm Gallbladder Wall: 0.2 cm CBD: 0.3 cm Right Kidney: 10.6 x 5.2 x 4.3 cm Pancreas: visualized portions wnl, limited by overlying midline bowel gas Liver: attenuating, mildly heterogeneous Gallbladder: wnl Evidence for sonographic Craft's sign: no CBD: visualized portions wnl, limited by overlying bowel gas Right Kidney: wnl IMPRESSION: Hepatic steatosis.
[2020-11-12 14:45] LABS: Basophils % (A) 1 %; Eosinophils # (A) 0.1 k/uL (0-0.7); Eosinophils % (A) 2 %; HCT 45.6 % (39.0-53.0); Lymphocytes # (A) 1.2 k/uL (1.0-4.8); Lymphocytes % (A) 31 %; MCH 31.5 pg (25.0-35.0); MCV 95.4 fL (80.0-100.0); Mean Platelet Volume 7.8; Monocytes # (A) 0.2 k/uL (0-1.0); Monocytes % (A) 6 %; Neutrophils # (A) 2.1 k/uL (1.3-7.7); Neutrophils % (A) 56 %; Platelet Count 148 k/uL (150-450); RBC 4.78 m/uL (4.30-5.90); RDW 15.4 % (11.5-15.5); WBC 3.7 k/uL (3.8-10.6)
[2020-11-12 14:51] LABS: ALT 62 U/L (4-49); AST 99 U/L (17-59); African American GFR (CKD) >90 (>60 ml/min/1.73 sqM); Albumin 3.6 g/dL (3.5-5.0); Alkaline Phosphatase 74 U/L (38-126); Anion Gap 10 mmol/L; Blood Urea Nitrogen 10 mg/dL (9-20); Calcium 8.6 mg/dL (8.4-10.2); Carbon Dioxide 25 mmol/L (22-30); Chloride 102 mmol/L (98-107); Glucose 91 mg/dL (74-99); Non-African American GFR(CKD) >90 (>60 ml/min/1.73 sqM); Potassium 4.4 mmol/L (3.5-5.1); Sodium 137 mmol/L (137-145); Total Bilirubin 0.5 mg/dL (0.2-1.3); Total Protein 6.1 g/dL (6.3-8.2)
[2020-11-13 03:09] LABS: Hepatitis A Antibody IgM Non-Reactive (Non-Reactive); Hepatitis B Core IgM Non-Reactive (Non-Reactive); Hepatitis B Surface Antigen Non-Reactive (Non-Reactive); Hepatitis C IgG Antibody Non-Reactive (Non-Reactive)
== END | disposition home or self-care (01) ==
LOC: RADUSWWP 13:13
PROVIDERS: ATTEND Surgery Plastic and Reconstructive Surgery
DX: K44.9 Diaphragmatic hernia without obstruction or gangrene (principal); R74.01 Elevation of levels of liver transaminase levels
CPT/HCPCS: 76705; 80053; 80074; 85025; 93005

== ENCOUNTER 2021-05-11 11:54 | Observation (INO) | payer OTHER ==
[2021-05-11] MEDS ORDERED: SODIUM CHLORIDE 0.9% 500 ML 500 ML IV STA (12:22)
[2021-05-11] MEDS ORDERED: NITROGLYCERIN OINT 1 INCH/GM PACKET TOPICAL STA (12:22)
[2021-05-11] MEDS ORDERED: ASPIRIN 81 MG PO STA (12:22)
[2021-05-11] MEDS ORDERED: NITROGLYCERIN SL TABS 0.4 MG TAB SUBLINGUAL STA (12:23)
[2021-05-11] MEDS ORDERED: LORazepam 2 MG/ML INJ IV STA (12:24)
[2021-05-11] MEDS ORDERED: SODIUM CHLORIDE 0.9% 1,000 ML IV ONE (12:24)
--- NOTE | 2021-05-11 12:32 | ED ---
General Adult HPI - General Chief complaint: Chest Pain Stated complaint: Chest pain/dizzy Time Seen by Provider: 05/11/21 12:05 Source: patient, RN notes reviewed, old records reviewed Mode of arrival: ambulatory Limitations: no limitations - History of Present Illness Initial comments: This a 55-year-old male who presents emergency Department complaining of chest pain. Patient states started hour prior to arrival he became lightheaded and had some shortness of breath some nausea and the pain radiated to his neck. Patient states he has high blood pressure but doesn't take any medicine for his high cholesterol. Doesn't take any medicine for. Patient denies any smoking or any diabetes. Patient denies any previous heart attacks but states he did get diagnosed at one time with atrial fibrillation. She also mentioned that he is a daily drinker. He just to drink today. Patient denies any leg swelling or calf tenderness. - Related Data Home Medications Medication Instructions Recorded Confirmed Omeprazole 40 mg PO 1300 01/17/19 12/30/20 QUEtiapine FUMARATE [SEROquel] 25 mg PO HS 12/30/20 Allergies Allergy/AdvReac Type Severity Reaction Status Date / Time No Known Drug Allergies Allergy Unknown Verified 05/11/21 12:01 Review of Systems ROS Statement: Those systems with pertinent positive or pertinent negative responses have been documented in the HPI. ROS Other: All systems not noted in ROS Statement are negative. Past Medical History Past Medical History: GERD/Reflux Additional Past Medical History / Comment(s): currently having alcohol withdrawals,hiatal hernia,hypoglycemia,had ER visit for facial swelling-unknown cause approx 1 month ago History of Any Multi-Drug Resistant Organisms: None Reported Past Surgical History: Hernia Repair, Orthopedic Surgery Additional Past Surgical History / Comment(s): hiatal hernia repair, rt knee surgery Past Anesthesia/Blood Transfusion Reactions: No Reported Reaction Additional Past Anesthesia/Blood Transfusion Reaction / Comment(s): no hx blood transfusions Past Psychological History: PTSD Smoking Status: Never smoker Past Alcohol Use History: Daily, Heavy Past Drug Use History: None Reported - Past Family History Father Family Medical History: Cancer, COPD, Hyperlipidemia, Hypertension Mother Family Medical History: No Reported History Additional Family Medical History / Comment(s): Diverticulitis General Exam - General Exam Comments Initial Comments: GENERAL: Patient is well-developed and well-nourished. Patient is nontoxic and well- hydrated and is mild distress. ENT: Neck is soft and supple. No significant lymphadenopathy is noted. Oropharynx is clear. Moist mucous membranes. Neck has full range of motion without eliciting any pain. EYES: The sclera were anicteric and conjunctiva were pink and moist. Extraocular movements were intact and pupils were equal round and reactive to light. Eyelids were unremarkable. PULMONARY: Unlabored respirations. Good breath sounds bilaterally. No audible rales rhonchi or wheezing was noted. CARDIOVASCULAR: There is a regular rate and rhythm without any murmurs gallops or rubs. ABDOMEN: Soft and nontender with normal bowel sounds. SKIN: Skin is clear with no lesions or rashes and otherwise unremarkable. NEUROLOGIC: Patient is alert and oriented x3. Cranial nerves II through XII are grossly intact. Motor and sensory are also intact. Normal speech, volume and content. Symmetrical smile. MUSCULOSKELETAL: Normal extremities with adequate strength and full range of motion. No lower extremity swelling or edema. No calf tenderness. LYMPHATICS: No significant lymphadenopathy is noted PSYCHIATRIC: Normal psychiatric evaluation. Limitations: no limitations Course Vital Signs 05/11/21 05/11/21 12:01 12:41 Temperature 98 F Pulse Rate 108 H 99 Respiratory 18 16 Rate Blood Pressure 120/87 142/93 O2 Sat by Pulse 96 Oximetry Medical Decision Making - Medical Decision Making EKG shows sinus tachycardia at 103 bpm WI interval 192 QRS is 82 QT interval 346 QTC is 453 per patient's EKG shows no ST segment elevation or depression. - Lab Data Result diagrams: 05/11/21 12:28 05/11/21 12:28 Lab Results 05/11/21 05/11/21 05/11/21 Range/Units 12:28 12:28 12:28 WBC 2.8 L (3.8-10.6) k/uL RBC 4.68 (4.30-5.90) m/uL Hgb 15.8 (13.0-17.5) gm/dL Hct 48.0 (39.0-53.0) % MCV 102.6 H (80.0-100.0) fL MCH 33.8 (25.0-35.0) pg MCHC 33.0 (31.0-37.0) g/dL RDW 13.2 (11.5-15.5) % Plt Count 100 L (150-450) k/uL MPV 9.2 Neutrophils % 66 % Lymphocytes % 18 % Monocytes % 11 % Eosinophils % 1 % Basophils % 1 % Neutrophils # 1.9 (1.3-7.7) k/uL Lymphocytes # 0.5 L (1.0-4.8) k/uL Monocytes # 0.3 (0-1.0) k/uL Eosinophils # 0.0 (0-0.7) k/uL Basophils # 0.0 (0-0.2) k/uL Macrocytosis Slight PT 10.3 (9.0-12.0) sec INR 1.0 (<1.2) APTT 22.9 (22.0-30.0) sec Sodium 138 (137-145) mmol/L Potassium 4.3 (3.5-5.1) mmol/L Chloride 103 (98-107) mmol/L Carbon Dioxide 22 (22-30) mmol/L Anion Gap 13 mmol/L BUN 4 L (9-20) mg/dL Creatinine 0.68 (0.66-1.25) mg/dL Est GFR (CKD-EPI)AfAm >90 (>60 ml/min/1.73 sqM) Est GFR (CKD-EPI)NonAf >90 (>60 ml/min/1.73 sqM) Glucose 116 H (74-99) mg/dL Calcium 9.2 (8.4-10.2) mg/dL Magnesium 1.6 (1.6-2.3) mg/dL Total Bilirubin 0.7 (0.2-1.3) mg/dL AST 211 H (17-59) U/L ALT 68 H (4-49) U/L Alkaline Phosphatase 104 (38-126) U/L Troponin I (0.000-0.034) ng/mL Total Protein 7.1 (6.3-8.2) g/dL Albumin 4.3 (3.5-5.0) g/dL Serum Alcohol 202 H* mg/dL 05/11/21 Range/Units 12:28 WBC (3.8-10.6) k/uL RBC (4.30-5.90) m/uL Hgb (13.0-17.5) gm/dL Hct (39.0-53.0) % MCV (80.0-100.0) fL MCH (25.0-35.0) pg MCHC (31.0-37.0) g/dL RDW (11.5-15.5) % Plt Count (150-450) k/uL MPV Neutrophils % % Lymphocytes % % Monocytes % % Eosinophils % % Basophils % % Neutrophils # (1.3-7.7) k/uL Lymphocytes # (1.0-4.8) k/uL Monocytes # (0-1.0) k/uL Eosinophils # (0-0.7) k/uL Basophils # (0-0.2) k/uL Macrocytosis PT (9.0-12.0) sec INR (<1.2) APTT (22.0-30.0) sec Sodium (137-145) mmol/L Potassium (3.5-5.1) mmol/L Chloride (98-107) mmol/L Carbon Dioxide (22-30) mmol/L Anion Gap mmol/L BUN (9-20) mg/dL Creatinine (0.66-1.25) mg/dL Est GFR (CKD-EPI)AfAm (>60 ml/min/1.73 sqM) Est GFR (CKD-EPI)NonAf (>60 ml/min/1.73 sqM) Glucose (74-99) mg/dL Calcium (8.4-10.2) mg/dL Magnesium (1.6-2.3) mg/dL Total Bilirubin (0.2-1.3) mg/dL AST (17-59) U/L ALT (4-49) U/L Alkaline Phosphatase (38-126) U/L Troponin I <0.012 (0.000-0.034) ng/mL Total Protein (6.3-8.2) g/dL Albumin (3.5-5.0) g/dL Serum Alcohol mg/dL Disposition Clinical Impression: Alcohol intoxication, Chest pain Disposition: ADMITTED IP TO THIS HOSP Referrals: Devin Bauman MD [Primary Care Provider] - 1-2 days Time of Disposition: 14:59
[2021-05-11 12:43] LABS: Basophils % (A) 1 %; Eosinophils % (A) 1 %; HGB 15.8 gm/dL (13.0-17.5); Lymphocytes # (A) 0.5 k/uL (1.0-4.8); Lymphocytes % (A) 18 %; MCH 33.8 pg (25.0-35.0); MCV 102.6 fL (80.0-100.0); Macrocytosis Slight; Mean Platelet Volume 9.2; Monocytes # (A) 0.3 k/uL (0-1.0); Monocytes % (A) 11 %; Neutrophils # (A) 1.9 k/uL (1.3-7.7); Neutrophils % (A) 66 %; Platelet Count 100 k/uL (150-450); RBC 4.68 m/uL (4.30-5.90); RDW 13.2 % (11.5-15.5); WBC 2.8 k/uL (3.8-10.6)
[2021-05-11 12:53] LABS: ALT 68 U/L (4-49); AST 211 U/L (17-59); African American GFR (CKD) >90 (>60 ml/min/1.73 sqM); Albumin 4.3 g/dL (3.5-5.0); Alkaline Phosphatase 104 U/L (38-126); Anion Gap 13 mmol/L; Blood Urea Nitrogen 4 mg/dL (9-20); Calcium 9.2 mg/dL (8.4-10.2); Carbon Dioxide 22 mmol/L (22-30); Chloride 103 mmol/L (98-107); Glucose 116 mg/dL (74-99); Magnesium 1.6 mg/dL (1.6-2.3); Non-African American GFR(CKD) >90 (>60 ml/min/1.73 sqM); Potassium 4.3 mmol/L (3.5-5.1); Sodium 138 mmol/L (137-145); Total Bilirubin 0.7 mg/dL (0.2-1.3); Total Protein 7.1 g/dL (6.3-8.2)
--- NOTE | 2021-05-11 13:07 | XR ---
EXAMINATION TYPE: XR chest 2V DATE OF EXAM: 05/11/2021 COMPARISON: 04/21/2019 TECHNIQUE: PA and lateral views submitted. HISTORY: chest pain, SOB FINDINGS: The lungs are clear and there is no pneumothorax, pleural effusion, or focal pneumonia. Hypertrophic and degenerative change of the spine. IMPRESSION: 1. No acute process.
[2021-05-11 13:15] LABS: Partial Thromboplastin Time 22.9 sec (22.0-30.0); Prothrombin Time 10.3 sec (9.0-12.0)
[2021-05-11 13:16] LABS: Alcohol 202 mg/dL
[2021-05-11] MEDS ORDERED: THIAMINE 100 MG/ML 2 ML VIAL IM STA (14:59)
[2021-05-11] MEDS ORDERED: LORazepam 2 MG/ML INJ IV PRN ×2 (14:59)
[2021-05-11] MEDS ORDERED: NITROGLYCERIN SL TABS 0.4 MG TAB SUBLINGUAL PRN (14:59)
[2021-05-11] MEDS: NITROGLYCERIN OINT 1 INCH/GM PACKET TOPICAL SCH (17:39)
[2021-05-11] MEDS: LORazepam 2 MG/ML INJ IV PRN (17:39)
[2021-05-11] MEDS: THIAMINE 100 MG TAB PO SCH (17:39)
[2021-05-12] MEDS: NITROGLYCERIN OINT 1 INCH/GM PACKET TOPICAL SCH ×2 (00:35→04:53)
[2021-05-12] MEDS: ASPIRIN 81 MG PO SCH (08:28)
[2021-05-12] MEDS: THIAMINE 100 MG TAB PO SCH ×2 (08:28→18:16)
[2021-05-12] MEDS ORDERED: DOBUTamine DRIP for NUC MED 500 MG in DEXTROSE/WATER 1 250ML.BAG IV PRN (08:32)
[2021-05-12] MEDS ORDERED: ASPIRIN 325 MG TAB PO SCH (09:00)
[2021-05-12] MEDS: LORazepam 2 MG/ML INJ IV PRN (10:20)
[2021-05-12 10:55] LABS: Chol/HDL Ratio 1.75; LDL Cholesterol,Calculated 83.6 mg/dL (0.0-131.0); VLDL Calculation 18.4 mg/dL (5.00-40.00)
[2021-05-12] MEDS: FOLIC ACID 1 MG TAB PO SCH (11:17)
[2021-05-12] MEDS: MULTIVITAMINS, THERA 1 EACH TAB PO SCH (11:17)
--- NOTE | 2021-05-12 11:18 | P.CRDCN ---
History of Present Illness History of present illness: HISTORY OF PRESENTING ILLNESS This is a pleasant 55-year-old occasion male past medical history significant for paroxysmal atrial fibrillation not on watcher [employer] anticoagulation CHADS-VASC is 0, alcohol abuse and history of alcohol withdrawal seizure. He also vaguely describes a history of some esophageal tear that Dr. Byrne is following. He follows in the office with Dr. Burns. We have been asked to see in consultation for chest pain. He states yesterday while sitting down watching television he developed a pressure sensation in the midsternal region that radiated out across to stress him to his shoulders bilaterally. He also felt the discomfort in the base of his throat. This was associated with feeling lightheaded and nauseated. He continues to have ongoing chest discomfort in the midsternal region that he describes as an achy sensation. He states he is currently in the process of attempting to go to [place] for alcohol rehabilitation and is trying to cut down his alcohol intake. DIAGNOSTICS EKG reveals sinus tachycardia heart rate of 103 withwith no evidence of ST or T wave abnormalities noted. Telemetry tracings indicate sinus mechanism with no arrhythmia. Chest xray negative for an acute cardiopulmonary process. Laboratory reviewed, to be WBC 2.8, hemoglobin 15.8, platelets 100, sodium 138, potassium 4.3, creatinine 0.68, magnesium 1.6, cardiac enzymes negative 3, LDL 83 an alcohol level of 202. He takes no daily cardiac medications. Most recent echocardiogram obtained in March 2021 revealed preserved LV systolic function with no evidence of wall motion abnormalities. Most recent stress test performed in the office May 2020 was negative for stress-induced ischemia with poor exercise tolerance. REVIEW OF SYSTEMS At the time of my exam: CONSTITUTIONAL: Denies fever or chills. CARDIOVASCULAR: Complains of chest pain. Denies shortness of breath, orthopnea, PND or palpitations. RESPIRATORY: Denies cough. GASTROINTESTINAL: Denies abdominal pain, diarrhea, constipation, nausea or vomiting. MUSCULOSKELETAL: Denies myalgias. NEUROLOGIC: Denies numbness, tingling, headacbe or weakness. ENDOCRINE: Denies fatigue, weight change, polydipsia or polyurina. GENITOURINARY: Denies burning, hematuria or urgency with micturation. HEMATOLOGIC: Denies history of anemia or bleeding. PHYSICAL EXAMINATION Blood pressure 140/77 heart rate 76 afebrile and maintaining oxygen saturation on room air. CONSTITUTIONAL: No apparent distress. HEENT: Head is normocephalic. Pupils are equal, round. Sclerae anicteric. Mucous membranes of the mouth are moist. No JVD. No carotid bruit. CHEST EXAMINATION: Lungs are clear to auscultation. No chest wall tenderness is noted on palpation or with deep breathing. HEART EXAMINATION: Regular rate and rhythm. S1, S2 heard. No murmurs, gallops or rub. ABDOMEN: Soft, nontender. Positive bowel sounds. EXTREMITIES: 2+ peripheral pulses, no lower extremity edema and no calf tenderness. NEUROLOGIC EXAMINATION: Patient is awake, alert and oriented x3. ASSESSMENT Chest pain, atypical Paroxysmal atrial fibrillation maintaining sinus mechanism Alcohol abuse Acute alcohol intoxication PLAN An acute coronary event has been ruled out. Pain could be related to esophageal pathology, unclear what is diagnosis is at this point. Perform dobutamine stress echocardiogram to assess for stress-induced cardiac is chemia. Recommended alcohol cessation. If stress test is negative he may be discharged from a cardiac perspective. Thank you kindly for this consultation. Nurse Practitioner note has been reviewed, I agree with a documented findings and plan of care. Patient was seen and examined. Past Medical History Past Medical History: GERD/Reflux Additional Past Medical History / Comment(s): currently having alcohol withdrawals,hiatal hernia,hypoglycemia,had ER visit for facial swelling-unknown cause approx 1 month ago History of Any Multi-Drug Resistant Organisms: None Reported Past Surgical History: Hernia Repair, Orthopedic Surgery Additional Past Surgical History / Comment(s): hiatal hernia repair, rt knee surgery Past Anesthesia/Blood Transfusion Reactions: No Reported Reaction Additional Past Anesthesia/Blood Transfusion Reaction / Comment(s): no hx blood transfusions Past Psychological History: PTSD Additional Psychological History / Comment(s): follows Counselor [facility] Smoking Status: Never smoker Past Alcohol Use History: Daily, Heavy Additional Past Alcohol Use History / Comment(s): drinks 5-24 ounces per day approx. Past Drug Use History: None Reported - Past Family History Father Family Medical History: Cancer, COPD, Hyperlipidemia, Hypertension Mother Family Medical History: No Reported History Additional Family Medical History / Comment(s): Diverticulitis Medications and Allergies Home Medications Medication Instructions Recorded Confirmed Type Omeprazole 40 mg PO DAILY 01/17/19 05/11/21 History Folic Acid 1 mg PO DAILY 05/11/21 05/11/21 History Thiamine HCl [Vitamin B-1] 100 mg PO DAILY 05/11/21 05/11/21 History Allergies Allergy/AdvReac Type Severity Reaction Status Date / Time No Known Drug Allergies Allergy Unknown Verified 05/11/21 15:00 Physical Exam Vitals: Vital Signs Temp Pulse Pulse Resp BP BP Pulse Ox 05/12/21 07:00 98.4 F 76 16 140/77 95 05/12/21 01:08 99.4 F 86 16 123/81 95 05/11/21 20:32 99.3 F 99 18 119/69 95 05/11/21 17:44 96 16 135/83 99 05/11/21 15:29 92 16 130/88 98 05/11/21 12:41 99 16 142/93 96 05/11/21 12:01 98 F 108 H 18 120/87 Intake and Output 05/11/21 05/12/21 05/12/21 22:59 06:59 14:59 Output Total 400 Balance -400 Output: Urine 400 Other: Voiding Method Toilet Toilet # Voids 1 2 Weight 89.811 kg Results 05/11/21 12:28 05/11/21 12:28 Cardiac Enzymes 05/11/21 05/11/21 05/11/21 Range/Units 12:28 12:28 17:22 AST 211 H (17-59) U/L Troponin I <0.012 <0.012 (0.000-0.034) ng/mL 05/11/21 Range/Units 20:39 AST (17-59) U/L Troponin I <0.012 (0.000-0.034) ng/mL Coagulation 05/11/21 Range/Units 12:28 PT 10.3 (9.0-12.0) sec APTT 22.9 (22.0-30.0) sec Lipids 05/11/21 Range/Units 16:16 Triglycerides 92.0 (0.0-149.0) mg/dL Cholesterol 238 H (0-200) mg/dL HDL Cholesterol 136.0 H (40.0-60.0) mg/dL Cholesterol/HDL Ratio 1.75 CBC 05/11/21 Range/Units 12:28 WBC 2.8 L (3.8-10.6) k/uL RBC 4.68 (4.30-5.90) m/uL Hgb 15.8 (13.0-17.5) gm/dL Hct 48.0 (39.0-53.0) % Plt Count 100 L (150-450) k/uL Comprehensive Metabolic Panel 05/11/21 Range/Units 12:28 Sodium 138 (137-145) mmol/L Potassium 4.3 (3.5-5.1) mmol/L Chloride 103 (98-107) mmol/L Carbon Dioxide 22 (22-30) mmol/L BUN 4 L (9-20) mg/dL Creatinine 0.68 (0.66-1.25) mg/dL Glucose 116 H (74-99) mg/dL Calcium 9.2 (8.4-10.2) mg/dL AST 211 H (17-59) U/L ALT 68 H (4-49) U/L Alkaline Phosphatase 104 (38-126) U/L Total Protein 7.1 (6.3-8.2) g/dL Albumin 4.3 (3.5-5.0) g/dL Current Medications Generic Name Dose Route Start Last Admin Trade Name Freq PRN Reason Stop Dose Admin Aspirin 81 mg 05/12/21 09:00 05/12/21 08:28 Aspirin 81 Mg PO 81 mg DAILY EILEEN Administration Folic Acid 1 mg 05/12/21 10:30 Folic Acid 1 Mg Tab PO W/BRKFST [facility] Dobutamine HCl/Dextrose 500 mg 250 mls @ 26.943 mls/hr 05/12/21 08:32 / IV Solution IV 05/12/21 12:32 .Q9H17M PRN Per Protocol Protocol 10 MCG/KG/MIN Lorazepam 1 mg 05/11/21 14:59 05/11/21 20:48 Lorazepam 2 Mg/Ml Inj IV 1 mg Q2HR PRN Administration CIWA 8 or 9 Lorazepam 1 mg 05/11/21 14:59 05/12/21 10:20 Lorazepam 2 Mg/Ml Inj IV 1 mg Q1HR PRN Administration CIWA 10 to 15 Lorazepam 2 mg 05/11/21 14:59 Lorazepam 2 Mg/Ml Inj IV 05/13/21 14:59 Q10M PRN CIWA 16 or higher Multivitamins 1 each 05/12/21 10:30 Multivitamins, Thera 1 Each Tab PO W/BRKFST EILEEN Nitroglycerin 0.4 mg 05/11/21 14:59 Nitroglycerin Sl Tabs 0.4 Mg Tab SUBLINGUAL Q5M PRN Chest Pain Nitroglycerin 1 inch 05/11/21 18:00 05/12/21 04:53 Nitroglycerin Oint 1 Inch/Gm Packet TOPICAL 1 inch Q6HR [facility] Administration Pantoprazole Sodium 40 mg 05/12/21 17:30 Pantoprazole 40 Mg Tablet PO AC-BID [facility] Thiamine HCl 100 mg 05/11/21 17:30 05/12/21 08:28 Thiamine 100 Mg Tab PO 100 mg BID-W/MEALS EILEEN Administration Intake and Output 05/11/21 05/12/21 05/12/21 22:59 06:59 14:59 Output Total 400 Balance -400 Output: Urine 400 Other: Voiding Method Toilet Toilet # Voids 1 2 Weight 89.811 kg 05/11/21 12:28 05/11/21 12:28
[2021-05-12] MEDS ORDERED: Magnesium Replacement Protocol 1 EACH MISC MISCELLANE PRN (13:39)
--- NOTE | 2021-05-12 13:43 | P.HPIM ---
History of Present Illness H&P Date: 05/12/21 Chief Complaint: Chest pain This is a 55-year-old gentleman presented to the ER intoxicated with complaints of chest pain in a patient with history of daily alcohol abuse, depression and multiple other medical issues. Reports he had just gotten out of court yesterday and started having midsternal chest pressure that radiated across the entire chest and up into his left throat accompanied by dizziness upon returning home. Reports his daily alcohol consumption has decreased to 2 beers daily.Blood alcohol level on admission is 202. Denies any fever chills abdominal pain nausea vomiting diarrhea. Troponins negative 3. EKG reported sinus tachycardia, currently sinus rhythm. Chest x-ray reported negative for acute cardiopulmonary process. WBC 2.8, hemoglobin 15.8, MCV 102.6, platelets 100, BUN 4, creatinine 0.68, sodium 138, potassium 4.3, magnesium 1.6, AST 211, ALT 68, cholesterol 238, LDL 83.6, HDL 136. Review of Systems ROS Statement: Those systems with pertinent positive or pertinent negative responses have been documented in the HPI. ROS Other: All systems not noted in ROS Statement are negative. Past Medical History Past Medical History: GERD/Reflux Additional Past Medical History / Comment(s): currently having alcohol withdrawals,hiatal hernia,hypoglycemia,had ER visit for facial swelling-unknown cause approx 1 month ago History of Any Multi-Drug Resistant Organisms: None Reported Past Surgical History: Hernia Repair, Orthopedic Surgery Additional Past Surgical History / Comment(s): hiatal hernia repair, rt knee surgery Past Anesthesia/Blood Transfusion Reactions: No Reported Reaction Additional Past Anesthesia/Blood Transfusion Reaction / Comment(s): no hx blood transfusions Past Psychological History: PTSD Additional Psychological History / Comment(s): follows Counselor [facility] Smoking Status: Never smoker Past Alcohol Use History: Daily, Heavy Additional Past Alcohol Use History / Comment(s): drinks 5-24 ounces per day approx. Past Drug Use History: None Reported - Past Family History Father Family Medical History: Cancer, COPD, Hyperlipidemia, Hypertension Mother Family Medical History: No Reported History Additional Family Medical History / Comment(s): Diverticulitis Medications and Allergies Home Medications Medication Instructions Recorded Confirmed Type Omeprazole 40 mg PO DAILY 01/17/19 05/11/21 History Folic Acid 1 mg PO DAILY 05/11/21 05/11/21 History Thiamine HCl [Vitamin B-1] 100 mg PO DAILY 05/11/21 05/11/21 History Allergies Allergy/AdvReac Type Severity Reaction Status Date / Time No Known Drug Allergies Allergy Unknown Verified 05/11/21 15:00 Physical Exam Vitals: Vital Signs Temp Pulse Pulse Resp BP BP Pulse Ox 05/12/21 07:00 98.4 F 76 16 140/77 95 05/12/21 01:08 99.4 F 86 16 123/81 95 05/11/21 20:32 99.3 F 99 18 119/69 95 05/11/21 17:44 96 16 135/83 99 05/11/21 15:29 92 16 130/88 98 Intake and Output 05/11/21 05/12/21 05/12/21 22:59 06:59 14:59 Output Total 400 Balance -400 Output: Urine 400 Other: Voiding Method Toilet Toilet # Voids 1 2 Weight 89.811 kg GENERAL: Alert and oriented x3, no acute distress. HEENT: Pupils are round and equally reacting to light. EOMI. No scleral icterus. No conjunctival pallor. Normocephalic, atraumatic. No pharyngeal erythema. No thyromegaly. CARDIOVASCULAR: S1 and S2 present. No murmurs, rubs, or gallops. PULMONARY: Chest is clear to auscultation, no wheezing or crackles. ABDOMEN: Soft, nontender, nondistended, normoactive bowel sounds. No palpable organomegaly. EXTREMITIES: No cyanosis, clubbing, or pedal edema. NEUROLOGICAL: Gross neurological examination did not reveal any focal deficits. SKIN: warm & dryNo rashes. Results CBC & Chem 7: 05/11/21 12:28 05/11/21 12:28 Labs: Abnormal Lab Results - Last 24 Hours (Table) 05/11/21 Range/Units 16:16 Cholesterol 238 H (0-200) mg/dL HDL Cholesterol 136.0 H (40.0-60.0) mg/dL Thrombosis Risk Factor Assmnt - Choose All That Apply Each Factor Represents 1 point: Age 41-60 years, Obesity (BMI >25) Thrombosis Risk Factor Assessment Total Risk Factor Score: 2 Thrombosis Risk Factor Assessment Level: Low Risk Assessment and Plan Assessment: Chest pain, cardiology following Alcohol intoxication, withdrawal Daily alcohol abuse Depression Gastroesophageal reflux disease Insomnia Hypomagnesemia Plan: Continue on current medication regime ,monitoring and symptomatic treatment. Stress test pending. Maintain CIWA protocol, vitamin supplements, IV hydration. Lexapro admitted for depression. Trazodone admitted for insomnia. Follow-up magnesium level ordered. Magnesium replacement protocol ordered. PPI ordered for GI prophylaxis. Alcohol cessation reinforced. The impression and plan of care has been dictated as directed. : I performed a history and examination of this patient, discussed the same with the dictator. I agree with the dictator's note ,documented as a scribe. Any additional findings or plans will be noted.
[2021-05-12] MEDS: ESCITALOPRAM 10 MG TAB PO SCH (13:47)
--- NOTE | 2021-05-12 16:32 | ECHOS ---
STRESS ECHOCARDIOGRAM DATE OF SERVICE: 05/12/21 INDICATIONS: Chest pain BASELINE HEART RATE: 83 BASELINE BLOOD PRESSURE: 137/89 MAXIMUM HEART RATE: 158 MAXIMUM BLOOD PRESSURE: 143/71 85% MPHR: 139 100% MPHR: 164 METS: NA MAXIMUM STAGE REACHED: NA TOTAL EXERCISE TIME: 8:15 CLINICAL INFORMATION: Baseline rhythm is sinus mechanism rate of 83. Normal axis and intervals, poor R wave progression. Baseline blood pressure 137/89 mmHg. Patient exercised on Jam protocol for 8 minute 15 seconds reaching peak rate 158 beats per minute which is equal to 96% maximum predicted heart rate. Peak blood pressure 143/60 mmHg. Test was terminated secondary to fatigue. There was no chest pain. Rare PVCs were noted. Electrocardiograph monitoring revealed no evidence of diagnostic ischemic ST deviation. FINDINGS: Baseline echocardiogram revealed normal wall motion. At peak exercise, there was normal wall motion augmentation with no hypokinesis or dyskinesis. CONCLUSION: 1. Average exercise tolerance with normal echocardiograph response to exercise. 2. Occasional PVCs. 3. Normal stress echocardiogram with no evidence of stress-induced ischemia. MMODL / IJN: [id number] /
[2021-05-12] MEDS: PANTOPRAZOLE 40 MG TABLET PO SCH (18:16)
[2021-05-12] MEDS ORDERED: traZODone HCL 50 MG TAB PO SCH (21:00)
[2021-05-13] MEDS: THIAMINE 100 MG TAB PO SCH (07:52)
[2021-05-13] MEDS: PANTOPRAZOLE 40 MG TABLET PO SCH (07:52)
[2021-05-13] MEDS: ASPIRIN 81 MG PO SCH (07:53)
[2021-05-13] MEDS: FOLIC ACID 1 MG TAB PO SCH (07:53)
[2021-05-13] MEDS: MULTIVITAMINS, THERA 1 EACH TAB PO SCH (07:53)
[2021-05-13 08:08] VITALS: BP 104/64; PULSE 80; RESP 16; TEMP 98.8
[2021-05-13] MEDS: ESCITALOPRAM 10 MG TAB PO SCH (08:42)
[2021-05-13] MEDS ORDERED: MAGNESIUM OXIDE 400 MG TAB PO SCH (10:30)
--- NOTE | 2021-05-13 10:36 | P.DS ---
Providers Date of admission: 05/11/21 16:57 Expected date of discharge: 05/13/21 Attending physician: Devin Bauman MD Consults: 05/11/21 14:59 Consult Physician Urgent Consulting Provider: [facility] Consult Reason/Comments: Chest pain, alcohol intoxication Do you want consulting provider notified?: Yes Primary care physician: Devin Bauman MD Hospital Course: Final Diagnoses: Chest pain, ACS ruled out as per cardiology. Suspect alcohol induced gastroesophageal reflux disease. Alcohol intoxication, withdrawal, improved Acute metabolic, toxic encephalopathy secondary to the above and trazodone. Resolved Daily alcohol abuse Depression, Lexapro initiated Gastroesophageal reflux disease, maintained on PPI Insomnia, clonidine daily at bedtime initiated Hypomagnesemia, supplemented Hospital course:This is a 55-year-old gentleman presented to the ER intoxicated with complaints of chest pain in a patient with history of daily alcohol abuse, depression and multiple other medical issues. Reports he had just gotten out of court yesterday and started having midsternal chest pressure that radiated across the entire chest and up into his left throat accompanied by dizziness upon returning home. Reports his daily alcohol consumption has decreased to 2 beers daily.Blood alcohol level on admission is 202. Denies any fever chills abdominal pain nausea vomiting diarrhea. Troponins negative 3. EKG reported sinus tachycardia, currently sinus rhythm. Chest x-ray reported negative for acute cardiopulmonary process. WBC 2.8, hemoglobin 15.8, MCV 102.6, platelets 100, BUN 4, creatinine 0.68, sodium 138, potassium 4.3, magnesium 1.6, AST 211, ALT 68, cholesterol 238, LDL 83.6, HDL 136. Completed stress test, reported as normal, cleared by cardiology for discharge. Maintained on IV fluid hydration,CIWA protocol, magnesium supplements with significant clinical improvement. Patient did not tolerate trazodone, reported "crazy dreams/hallucinations/insomnia". Patient is currently A and O 3. Patient reports he is scheduled to attend [place] on the as arranged per court and [facility]. Patient will be discharged today in a stable condition with guarded prognosis. GENERAL: Alert and oriented x3, no acute distress. Conversing appropriately, calm, cooperative. HEENT: Normocephalic, atraumatic ,Pupils are round and equally reacting to light. EOMI. No scleral icterus. No conjunctival pallor. CARDIOVASCULAR: S1 and S2 present. No murmurs, rubs, or gallops. PULMONARY: Chest is clear to auscultation, no wheezing or crackles. ABDOMEN: Soft, nontender, nondistended, normoactive bowel sounds. NEUROLOGICAL: Gross neurological examination did not reveal any focal deficits. SKIN: warm & dry, no rashes The impression and plan of care has been dictated as directed. : I performed a history and examination of this patient, discussed the same with the dictator. I agree with the dictator's note ,documented as a scribe. Any additional findings or plans will be noted. Patient Condition at Discharge: Stable Plan - Discharge Summary Discharge Rx Participant: No New Discharge Prescriptions: New Multivitamins, Thera [Multivitamin (formulary)] 1 each PO W/BRKFST tab Omeprazole 40 mg PO DAILY #30 capsule. cloNIDine HCL 0.1 mg PO HS #30 tablet Escitalopram [Lexapro] 10 mg PO DAILY #30 tab Continue Thiamine HCl [Vitamin B-1] 100 mg PO DAILY Folic Acid 1 mg PO DAILY Discharge Medication List Folic Acid 1 mg PO DAILY 05/11/21 [History] Thiamine HCl [Vitamin B-1] 100 mg PO DAILY 05/11/21 [History] Escitalopram [Lexapro] 10 mg PO DAILY #30 tab 05/13/21 [Rx] Multivitamins, Thera [Multivitamin (formulary)] 1 each PO W/BRKFST tab 05/13/21 [Rx] Omeprazole 40 mg PO DAILY #30 capsule. 05/13/21 [Rx] cloNIDine HCL 0.1 mg PO HS #30 tablet 05/13/21 [Rx] Follow up Appointment(s)/Referral(s): Dr. ISIAH psychiatry [Other] - 1 Week Sima Burns MD [STAFF PHYSICIAN] - 2 Weeks Devin Bauman MD [Primary Care Provider] - 1 Week Activity/Diet/Wound Care/Special Instructions: Magnesium level pending : No EtOH [facility] as scheduled
--- NOTE | 2021-05-13 11:04 | PN ---
PROGRESS NOTE Mr. Lindsey is a 55-year-old male with history of alcohol use, who presented with symptoms of chest discomfort that has some atypical features for ischemic heart disease. He has history of paroxysmal atrial fibrillation, not anticoagulated with CHADS Vasc score of 0. He underwent a stress echocardiogram yesterday that revealed no evidence of inducible ischemia. He could not sleep yesterday, was quite anxious. Otherwise, he denies any significant chest pain, his breathing has been stable. He denies any palpitations. He continues to be at this time on aspirin, Ativan, thiamine, Protonix and trazodone. PHYSICAL EXAMINATION: Blood pressure 104/60 with a heart rate in the 80s. Lungs: Clear. Heart: Regular rhythm S1, S2. No S3. No rub. Abdomen: Soft nontender. Extremities: No edema. IMPRESSION: 1. Chest discomfort with no evidence of ischemic component with a normal stress echocardiogram. 2. History of paroxysmal atrial fibrillation maintaining sinus mechanism. 3. History of alcohol use and alcohol intoxication. RECOMMENDATIONS: From the cardiac standpoint, he is stable. I would expect he should be able to be discharged and followed as an outpatient. No further cardiac workup will be needed at this point. MMODL / IJN: [id number] /
[2021-05-13 11:27] LABS: Basophils # (A) 0.02 X 10*3/uL (0.00-0.10); Basophils % (A) 0.6 %; Eosinophils # (A) 0.07 X 10*3/uL (0.04-0.35); HGB 14.3 g/dL (13.0-17.0); Lymphocytes # (A) 0.64 X 10*3/uL (0.90-5.00); Lymphocytes % (A) 18.3 %; MCH 32.9 pg (27.0-32.0); MCHC 33.3 g/dL (32.0-37.0); MCV 98.9 fL (80.0-97.0); Mean Platelet Volume 12.9 fL (9.5-12.2); Monocytes # (A) 0.53 X 10*3/uL (0.20-1.00); Monocytes % (A) 15.2 %; Neutrophils # (A) 2.22 X 10*3/uL (1.80-7.70); Neutrophils % (A) 63.6 %; Platelet Count 58 X 10*3/uL (140-440); RBC 4.35 X 10*6/uL (4.40-5.60); RDW 13.5 % (11.5-14.5); WBC 3.49 X 10*3/uL (4.50-10.00)
[2021-05-13 11:54] LABS: African American GFR (CKD) 115.7 (60.0-200.0); Calcium 8.8 mg/dL (8.7-10.3); Magnesium 1.3 mg/dL (1.5-2.4); Non-African American GFR(CKD) 99.9 (60.0-200.0); Potassium 3.4 mmol/L (3.5-5.5)
== END 2021-05-13 10:56 ==
LOC: EC 11:54 → UNDOADMOB 14:59 → 6NMEDSUR 14:59 → 3SCARD 18:17 → 6NMEDSUR 18:32
PROVIDERS: ADMIT Family Medicine; ATTEND Family Medicine
DX: R07.89 Other chest pain (principal); F10.139 Alcohol abuse with withdrawal, unspecified; F10.129 Alcohol abuse with intoxication, unspecified; Y90.7 Blood alcohol level of 200-239 mg/100 ml; K21.9 Gastro-esophageal reflux disease without esophagitis; G92 Toxic encephalopathy; M54.2 Cervicalgia; R00.0 Tachycardia, unspecified; I48.0 Paroxysmal atrial fibrillation; G47.00 Insomnia, unspecified; F32.9 Major depressive disorder, single episode, unspecified; E83.42 Hypomagnesemia; F43.10 Post-traumatic stress disorder, unspecified; K44.9 Diaphragmatic hernia without obstruction or gangrene; Z79.899 Other long term (current) drug therapy; Z80.9 Family history of malignant neoplasm, unspecified; Z83.42 Family history of familial hypercholesterolemia; Z82.49 Family history of ischemic heart disease and other diseases of the circulatory system; Z82.5 Family history of asthma and other chronic lower respiratory diseases; Z83.79 Family history of other diseases of the digestive system
CPT/HCPCS: 96376 ×2; 96361; 96374; 99285; 36415; 93005; 93351; 80061; 80053; 80048; 83735 ×3; 84484; 85025 ×2; 85610; 85730; 71046; G0378 ×3; G0480; J2060 ×2; J1250; 80320

== ENCOUNTER 2021-07-05 14:45 | Inpatient (IN) | payer OTHER ==
[2021-07-05] MEDS ORDERED: SODIUM CHLORIDE 0.9% 500 ML 500 ML IV STA (16:02)
[2021-07-05] MEDS ORDERED: SODIUM CHLORIDE 0.9% 1,000 ML IV STA (16:02)
[2021-07-05] MEDS ORDERED: LORazepam 2 MG/ML INJ IV STA (16:03)
[2021-07-05] MEDS ORDERED: ONDANSETRON 4 MG/2 ML VIAL IVP STA (16:04)
[2021-07-05 16:32] LABS: INR 0.9 (<1.2); Prothrombin Time 9.9 sec (9.0-12.0)
--- NOTE | 2021-07-05 16:35 | ED ---
General Adult HPI - General Chief complaint: Alcohol Stated complaint: Detoxing Time Seen by Provider: 07/05/21 15:05 Source: patient, RN notes reviewed, old records reviewed Mode of arrival: wheelchair Limitations: no limitations - History of Present Illness Initial comments: This is a 55-year-old male who presents to the emergency department complaining of withdrawing from alcohol. Patient states his last drink was probably 8:00 last night. Patient states he's supposed to have surgery on his esophagus by Dr. Garcia on Sunday and so he decided that he should stop drinking prior to surgery. Patient states she's had the shakes and he is vomiting. Patient denies any chest pain or difficulty breathing. Patient denies any recent fever chills or cough. Patient states he has a little bit of abdominal pain is diffuse and he thinks is because of all the vomiting. Patient denies any alcohol use today. - Related Data Previous Rx's Medication Instructions Recorded Omeprazole 40 mg PO DAILY #30 capsule. 05/13/21 Allergies Allergy/AdvReac Type Severity Reaction Status Date / Time No Known Drug Allergies Allergy Unknown Verified 07/05/21 10:06 Review of Systems ROS Statement: Those systems with pertinent positive or pertinent negative responses have been documented in the HPI. ROS Other: All systems not noted in ROS Statement are negative. Past Medical History Past Medical History: GERD/Reflux Additional Past Medical History / Comment(s): hiatal hernia,hypoglycemia History of Any Multi-Drug Resistant Organisms: None Reported Past Surgical History: Hernia Repair, Orthopedic Surgery Additional Past Surgical History / Comment(s): hiatal hernia repair, rt knee surgery Past Anesthesia/Blood Transfusion Reactions: No Reported Reaction Additional Past Anesthesia/Blood Transfusion Reaction / Comment(s): no hx blood transfusions Past Psychological History: PTSD Smoking Status: Never smoker Past Alcohol Use History: Abuse, Daily, Heavy Past Drug Use History: None Reported - Past Family History Mother Family Medical History: No Reported History Additional Family Medical History / Comment(s): Diverticulitis General Exam - General Exam Comments Initial Comments: GENERAL: Patient is well-developed and well-nourished. Patient is nontoxic and well- hydrated and is in mild distress. Patient is tremulous ENT: Neck is soft and supple. No significant lymphadenopathy is noted. Oropharynx is clear. Moist mucous membranes. Neck has full range of motion without eliciting any pain. EYES: The sclera were anicteric and conjunctiva were pink and moist. Extraocular movements were intact and pupils were equal round and reactive to light. Eyelids were unremarkable. PULMONARY: Unlabored respirations. Good breath sounds bilaterally. No audible rales rhonchi or wheezing was noted. CARDIOVASCULAR: Patient is tachycardic at about 120 beats a minute ABDOMEN: Soft and nontender with normal bowel sounds. SKIN: Skin is clear with no lesions or rashes and otherwise unremarkable. NEUROLOGIC: Patient is alert and oriented x3. Cranial nerves II through XII are grossly intact. Motor and sensory are also intact. Normal speech, volume and content. Symmetrical smile. MUSCULOSKELETAL: Normal extremities with adequate strength and full range of motion. LYMPHATICS: No significant lymphadenopathy is noted PSYCHIATRIC: Normal psychiatric evaluation. Limitations: no limitations Course Vital Signs 07/05/21 15:05 Temperature 98.4 F Pulse Rate 116 H Respiratory 19 Rate Blood Pressure 124/84 O2 Sat by Pulse 98 Oximetry Medical Decision Making - Medical Decision Making I spoke with Dr. Dr. Bauman he agreed to admit the patient admitted the patient I wrote admitting orders. - Lab Data Result diagrams: 07/05/21 16:17 07/05/21 16:17 Lab Results 07/05/21 07/05/21 07/05/21 Range/Units 16:17 16:17 16:17 WBC 4.2 (3.8-10.6) k/uL RBC 4.47 (4.30-5.90) m/uL Hgb 14.8 (13.0-17.5) gm/dL Hct 45.3 (39.0-53.0) % MCV 101.2 H (80.0-100.0) fL MCH 33.1 (25.0-35.0) pg MCHC 32.7 (31.0-37.0) g/dL RDW 14.0 (11.5-15.5) % Plt Count 107 L (150-450) k/uL MPV 9.2 Neutrophils % 77 % Lymphocytes % 13 % Monocytes % 7 % Eosinophils % 0 % Basophils % 1 % Neutrophils # 3.2 (1.3-7.7) k/uL Lymphocytes # 0.5 L (1.0-4.8) k/uL Monocytes # 0.3 (0-1.0) k/uL Eosinophils # 0.0 (0-0.7) k/uL Basophils # 0.0 (0-0.2) k/uL Macrocytosis Slight PT 9.9 (9.0-12.0) sec INR 0.9 (<1.2) Sodium 134 L (137-145) mmol/L Potassium 5.2 H (3.5-5.1) mmol/L Chloride 104 (98-107) mmol/L Carbon Dioxide 16 L (22-30) mmol/L Anion Gap 14 mmol/L BUN 7 L (9-20) mg/dL Creatinine 0.62 L (0.66-1.25) mg/dL Est GFR (CKD-EPI)AfAm >90 (>60 ml/min/1.73 sqM) Est GFR (CKD-EPI)NonAf >90 (>60 ml/min/1.73 sqM) Glucose 104 H (74-99) mg/dL Calcium 9.7 (8.4-10.2) mg/dL Magnesium 1.5 L (1.6-2.3) mg/dL Total Bilirubin 1.5 H (0.2-1.3) mg/dL AST 281 H (17-59) U/L ALT 151 H (4-49) U/L Alkaline Phosphatase 114 (38-126) U/L Total Protein 8.0 (6.3-8.2) g/dL Albumin 4.7 (3.5-5.0) g/dL Amylase 85 (30-110) U/L Lipase 340 H (23-300) U/L Serum Alcohol 57 mg/dL Disposition Clinical Impression: Alcohol withdrawal syndrome Disposition: ADMITTED IP TO THIS HOSP Referrals: Devin Bauman MD [Primary Care Provider] - 1-2 days Time of Disposition: 17:38
[2021-07-05 16:37] LABS: ALT 151 U/L (4-49); AST 281 U/L (17-59); African American GFR (CKD) >90 (>60 ml/min/1.73 sqM); Albumin 4.7 g/dL (3.5-5.0); Alkaline Phosphatase 114 U/L (38-126); Amylase 85 U/L (30-110); Anion Gap 14 mmol/L; Blood Urea Nitrogen 7 mg/dL (9-20); Calcium 9.7 mg/dL (8.4-10.2); Carbon Dioxide 16 mmol/L (22-30); Chloride 104 mmol/L (98-107); Glucose 104 mg/dL (74-99); Lipase 340 U/L (23-300); Magnesium 1.5 mg/dL (1.6-2.3); Non-African American GFR(CKD) >90 (>60 ml/min/1.73 sqM); Potassium 5.2 mmol/L (3.5-5.1); Sodium 134 mmol/L (137-145); Total Bilirubin 1.5 mg/dL (0.2-1.3)
[2021-07-05] MEDS ORDERED: SODIUM CHLORIDE 0.9% 1,000 ML with MVI, ADULT NO.4 WITH VIT K 10 ML, THIAMINE 100 MG, F... IV ONE ×4 (16:45)
[2021-07-05 16:47] LABS: Basophils % (A) 1 %; Eosinophils % (A) 0 %; HCT 45.3 % (39.0-53.0); HGB 14.8 gm/dL (13.0-17.5); Lymphocytes # (A) 0.5 k/uL (1.0-4.8); Lymphocytes % (A) 13 %; MCH 33.1 pg (25.0-35.0); MCHC 32.7 g/dL (31.0-37.0); MCV 101.2 fL (80.0-100.0); Macrocytosis Slight; Mean Platelet Volume 9.2; Monocytes # (A) 0.3 k/uL (0-1.0); Monocytes % (A) 7 %; Neutrophils # (A) 3.2 k/uL (1.3-7.7); Neutrophils % (A) 77 %; Platelet Count 107 k/uL (150-450); RBC 4.47 m/uL (4.30-5.90); WBC 4.2 k/uL (3.8-10.6)
[2021-07-05 16:54] LABS: Alcohol 57 mg/dL
[2021-07-05] MEDS ORDERED: SODIUM CHLORIDE 0.9% 1,000 ML IV ONE (17:41)
[2021-07-05] MEDS ORDERED: LORazepam 2 MG/ML INJ IV PRN (17:45)
[2021-07-05] MEDS ORDERED: THIAMINE 100 MG/ML 2 ML VIAL IM STA (17:45)
[2021-07-05] MEDS ORDERED: ONDANSETRON 4 MG/2 ML VIAL IVP PRN (17:46)
[2021-07-05] MEDS ORDERED: MAGNESIUM SULFATE-D5W PMX 1 GM in DEXTROSE/WATER 1 100ML.BAG IVPB ONE (17:46)
[2021-07-05] MEDS: THIAMINE 100 MG TAB PO SCH (19:25)
[2021-07-05] MEDS: LORazepam 2 MG/ML INJ IV PRN (22:31)
[2021-07-06] MEDS: LORazepam 2 MG/ML INJ IV PRN ×2 (02:46→15:56)
[2021-07-06] MEDS: THIAMINE 100 MG TAB PO SCH ×2 (07:43→17:37)
[2021-07-06] MEDS: ESCITALOPRAM 10 MG TAB PO SCH (10:34)
--- NOTE | 2021-07-06 12:04 | P.PN ---
Progress Note - Text Progress Note Date: 07/06/21 Patient came in with acute alcohol withdrawal. Liver enzymes are normal. Elective robotic hiatal hernia repair canceled due to abnormal labs and current condition.
[2021-07-06 14:35] VITALS: BMI 28.8
[2021-07-06] MEDS: lamoTRIgine 25 MG TAB PO SCH (22:06)
--- NOTE | 2021-07-06 22:43 | P.HPIM ---
History of Present Illness H&P Date: 07/06/21 Chief Complaint: intoxication Thom Lindsey is a 55 yo M with PMH of alcoholism, previous withdrawal seizures, depression who presented to the ED complaining of withdrawal. He states he has been drinking at least a pint a ay if not more and wants to get better due to upcoming surgeries. He states he was supposed to have a hernia repaired this Sunday but did not want to go through withdrawal during this. On presentation his vitals were stable, labs significant for elevated LFT, lipase 300. Alcohol 50. Review of Systems All systems: negative Constitutional: Reports malaise, Denies chills, Denies fever Eyes: denies blurred vision, denies pain Ears, nose, mouth and throat: Denies headache, Denies sore throat Cardiovascular: Denies chest pain, Denies shortness of breath Respiratory: Denies cough Gastrointestinal: Denies abdominal pain, Denies diarrhea, Denies nausea, Denies vomiting Musculoskeletal: Denies myalgias Integumentary: Denies pruritus, Denies rash Neurological: Reports tremors, Denies numbness, Denies weakness Psychiatric: Denies anxiety, Denies depression Endocrine: Denies fatigue, Denies weight change Past Medical History Past Medical History: GERD/Reflux Additional Past Medical History / Comment(s): hiatal hernia,hypoglycemia, Alcohol abuse History of Any Multi-Drug Resistant Organisms: None Reported Past Surgical History: Hernia Repair, Orthopedic Surgery Additional Past Surgical History / Comment(s): hiatal hernia repair, rt knee surgery Past Anesthesia/Blood Transfusion Reactions: No Reported Reaction Additional Past Anesthesia/Blood Transfusion Reaction / Comment(s): no hx blood transfusions Past Psychological History: PTSD Additional Psychological History / Comment(s): follows Counsel[facility] Smoking Status: Never smoker Past Alcohol Use History: Abuse, Daily, Heavy Additional Past Alcohol Use History / Comment(s): drinks four to five 24 ounces per day approx. Past Drug Use History: None Reported - Past Family History Mother Family Medical History: Rheumatoid Arthritis (RA) Additional Family Medical History / Comment(s): Diverticulitis Father Family Medical History: COPD, Coronary Artery Disease (CAD), Hyperlipidemia, Hypertension Medications and Allergies Home Medications Medication Instructions Recorded Confirmed Type Omeprazole 40 mg PO DAILY #30 capsule. 05/13/21 07/05/21 Rx Ondansetron [Zofran ODT] 4 mg PO Q8HR PRN 07/05/21 07/05/21 History Allergies Allergy/AdvReac Type Severity Reaction Status Date / Time No Known Drug Allergies Allergy Unknown Verified 07/05/21 18:38 Physical Exam Vitals: Vital Signs Temp Pulse Pulse Resp BP BP BP 07/06/21 20:00 98.4 F 110 H 20 111/73 07/06/21 12:24 98.4 F 66 17 127/79 07/06/21 11:45 97.8 F 64 18 121/78 07/06/21 10:30 72 18 141/88 07/06/21 07:36 96 18 137/97 07/06/21 01:00 73 18 147/94 Pulse Ox 07/06/21 20:00 95 07/06/21 12:24 95 07/06/21 11:45 97 07/06/21 10:30 94 L 07/06/21 07:36 96 07/06/21 01:00 94 L Intake and Output 07/06/21 07/06/21 07/06/21 06:59 14:59 22:59 Other: # Voids 1 Weight 88.451 kg General: well nourished, well developed, NAD. Vitals reviewed Eyes: PERRL, EOMI, conjunctiva normal HENT: normocephalic, mucus membranes moist Neck: supple, no JVD Lungs: normal respiratory effort, no wheezes or rales CV: Regular rate and rhythm, no murmur. Peripheral pulses 2+ Abdomen: soft, nondistended, no organomegaly Lymph: no cervical or axillary LAD Skin: warm and dry. Neuro: A&Ox3, normal mood and affect. fine tremor Results CBC & Chem 7: 07/05/21 16:17 07/05/21 16:17 Thrombosis Risk Factor Assmnt - Choose All That Apply Any of the Below Risk Factors Present?: Yes Each Factor Represents 1 point: Age 41-60 years, Obesity (BMI >25) Other Risk Factors: No Other congenital or acquired thrombophilia - If yes, enter type in comment: No Thrombosis Risk Factor Assessment Total Risk Factor Score: 2 Thrombosis Risk Factor Assessment Level: Low Risk Assessment and Plan Plan: 1. Alcohol withdrawal. Admit CIWA protocol. Alcohol cessation counseling 2. Major depression. Resume lexapro, start lamictal 3. Hx hernia. Consult to surgery eval
[2021-07-07] MEDS: LORazepam 2 MG/ML INJ IV PRN ×3 (01:55→17:09)
[2021-07-07] MEDS: ESCITALOPRAM 10 MG TAB PO SCH (09:02)
[2021-07-07] MEDS: THIAMINE 100 MG TAB PO SCH ×2 (09:03→17:13)
[2021-07-07 20:09] VITALS: RESP 16
[2021-07-07] MEDS: lamoTRIgine 25 MG TAB PO SCH (20:42)
[2021-07-08] MEDS: LORazepam 2 MG/ML INJ IV PRN (03:18)
[2021-07-08 04:51] VITALS: BP 114/77; PULSE 93; TEMP 97.8
[2021-07-08] MEDS: THIAMINE 100 MG TAB PO SCH (07:37)
[2021-07-08] MEDS: ESCITALOPRAM 10 MG TAB PO SCH (07:37)
--- NOTE | 2021-07-08 08:39 | P.PN ---
Subjective Progress Note Date: 07/07/21 He is feeling better today although continues to complain of nausea and diaphoresis. His surgery was cancelled. Denies chest pain, shortness of breath, fever, chills. Objective - Vital Signs Vital signs: Vital Signs Temp 97.8 F 07/08/21 04:48 Pulse 93 07/08/21 04:48 Resp 16 07/08/21 04:48 BP 114/77 07/08/21 04:48 Pulse Ox 97 07/08/21 04:48 Intake & Output 07/07/21 07/08/21 07/08/21 18:59 06:59 18:59 Other: Voiding Method Toilet Toilet # Voids 5 3 # Bowel Movements 1 - Exam RRR, no murmur CTAB NTND Skin warm and dry - Labs CBC & Chem 7: 07/05/21 16:17 07/05/21 16:17 Assessment and Plan Plan: Continue with CIWA protocol, continue lexapro and lamictal
== END 2021-07-08 11:10 | disposition home or self-care (01) | DRG 897 ==
LOC: EC 14:45 → 4SSUR 17:41 → 5NMEDONC 07-06 11:24
PROVIDERS: ADMIT Family Medicine; ATTEND Family Medicine
DX: F10.239 Alcohol dependence with withdrawal, unspecified (principal); Z71.41 Alcohol abuse counseling and surveillance of alcoholic; F32.9 Major depressive disorder, single episode, unspecified; F43.10 Post-traumatic stress disorder, unspecified; Z53.9 Procedure and treatment not carried out, unspecified reason; Z82.49 Family history of ischemic heart disease and other diseases of the circulatory system; Z82.5 Family history of asthma and other chronic lower respiratory diseases; Z82.61 Family history of arthritis; Z20.822 Contact with and (suspected) exposure to COVID-19; K44.9 Diaphragmatic hernia without obstruction or gangrene
CPT/HCPCS: 36415; 80053; 80320; 82150; 83690; 83735; 85025; 85610; 87635; 96361; 96365; 96375; 99285

== ENCOUNTER 2022-03-21 13:28 | Observation (INO) | payer OTHER ==
[2022-03-21] MEDS ORDERED: SODIUM CHLORIDE 0.9% 500 ML 500 ML IV STA (13:30)
[2022-03-21] MEDS ORDERED: NITROGLYCERIN OINT 1 INCH/GM PACKET TOPICAL STA (13:30)
[2022-03-21] MEDS ORDERED: LORazepam 2 MG/ML INJ IV STA (13:30)
--- NOTE | 2022-03-21 13:38 | ED ---
General Adult HPI - General Chief complaint: Chest Pain Stated complaint: Chest pain Time Seen by Provider: 03/21/22 13:28 Source: patient, EMS, RN notes reviewed, old records reviewed Mode of arrival: EMS - History of Present Illness Initial comments: This a 56-year-old male with a past medical history significant for atrial fibrillation. Patient states about 2 hours ago started vomiting and he vomited 3 times. Patient states after that he started having significant chest pressure shortness of breath and diaphoresis. Patient states in route he received nitroglycerin and aspirin and Zofran. Patient states the nausea remains the chest pressure reduced from a 6 out of 10 to a 5 out of 10. Patient denies any recent fever chills or cough. Patient denies any abdominal pain. EMS stated the patient was not in atrial fibrillation. Patient denies any leg swelling or calf pain - Related Data Home Medications Medication Instructions Recorded Confirmed Ondansetron [Zofran ODT] 4 mg PO Q8HR PRN 07/05/21 07/05/21 Previous Rx's Medication Instructions Recorded Omeprazole 40 mg PO DAILY #30 capsule. 05/13/21 Escitalopram [Lexapro] 10 mg PO DAILY #30 tab 07/08/21 lamoTRIgine [LaMICtal] 25 mg PO HS #30 tab 07/08/21 Allergies Allergy/AdvReac Type Severity Reaction Status Date / Time No Known Drug Allergies Allergy Unknown Verified 07/05/21 18:38 Review of Systems ROS Statement: Those systems with pertinent positive or pertinent negative responses have been documented in the HPI. ROS Other: All systems not noted in ROS Statement are negative. Past Medical History Past Medical History: Atrial Fibrillation, GERD/Reflux Additional Past Medical History / Comment(s): hiatal hernia,hypoglycemia, Alcohol abuse History of Any Multi-Drug Resistant Organisms: None Reported Past Surgical History: Hernia Repair, Orthopedic Surgery Additional Past Surgical History / Comment(s): hiatal hernia repair, rt knee surgery Past Anesthesia/Blood Transfusion Reactions: No Reported Reaction Additional Past Anesthesia/Blood Transfusion Reaction / Comment(s): no hx blood transfusions Past Psychological History: PTSD Smoking Status: Never smoker Past Alcohol Use History: Abuse, Daily, Heavy Past Drug Use History: None Reported - Past Family History Father Family Medical History: Cancer, COPD, Hyperlipidemia, Hypertension Mother Family Medical History: Rheumatoid Arthritis (RA) Additional Family Medical History / Comment(s): Diverticulitis General Exam - General Exam Comments Initial Comments: GENERAL: Patient is well-developed and well-nourished. Patient is nontoxic and well- hydrated and is in mild distress. ENT: Neck is soft and supple. No significant lymphadenopathy is noted. Oropharynx is clear. Moist mucous membranes. Neck has full range of motion without eliciting any pain. EYES: The sclera were anicteric and conjunctiva were pink and moist. Extraocular movements were intact and pupils were equal round and reactive to light. Eyelids were unremarkable. PULMONARY: Unlabored respirations. Good breath sounds bilaterally. No audible rales rhonchi or wheezing was noted. CARDIOVASCULAR: There is a regular rate and rhythm without any murmurs gallops or rubs. ABDOMEN: Soft and nontender with normal bowel sounds. SKIN: Skin is clear with no lesions or rashes and otherwise unremarkable. NEUROLOGIC: Patient is alert and oriented x3. Cranial nerves II through XII are grossly intact. Motor and sensory are also intact. Normal speech, volume and content. Symmetrical smile. MUSCULOSKELETAL: Normal extremities with adequate strength and full range of motion. LYMPHATICS: No significant lymphadenopathy is noted PSYCHIATRIC: Normal psychiatric evaluation. Course Vital Signs 03/21/22 13:32 Temperature 98.7 F Pulse Rate 100 Respiratory 18 Rate Blood Pressure 114/75 O2 Sat by Pulse 95 Oximetry Medical Decision Making - Medical Decision Making EKG shows sinus tachycardia at 1 3 bpm NM interval 283 QRSs 84 Q-T intervals 47 QTC is 47. Patient's EKG shows no ST segment elevation or depression. Chest x-ray shows no acute abnormality. Patient's alcohol was 177. I spoke with Dr. Burns he agreed to admit the patient and the patient wrote admitting orders. - Lab Data Result diagrams: 03/21/22 13:43 03/21/22 13:43 Lab Results 03/21/22 03/21/22 03/21/22 Range/Units 13:43 13:43 13:43 WBC 4.0 (3.8-10.6) k/uL RBC 4.36 (4.30-5.90) m/uL Hgb 15.0 (13.0-17.5) gm/dL Hct 46.0 (39.0-53.0) % MCV 105.5 H (80.0-100.0) fL MCH 34.3 (25.0-35.0) pg MCHC 32.5 (31.0-37.0) g/dL RDW 15.1 (11.5-15.5) % Plt Count 213 (150-450) k/uL MPV 8.9 Neutrophils % 69 % Lymphocytes % 18 % Monocytes % 8 % Eosinophils % 0 % Basophils % 1 % Neutrophils # 2.8 (1.3-7.7) k/uL Lymphocytes # 0.7 L (1.0-4.8) k/uL Monocytes # 0.3 (0-1.0) k/uL Eosinophils # 0.0 (0-0.7) k/uL Basophils # 0.0 (0-0.2) k/uL Macrocytosis Moderate PT 11.7 (9.0-12.0) sec INR 1.1 (<1.2) APTT 24.4 (22.0-30.0) sec Sodium 139 (137-145) mmol/L Potassium 4.7 (3.5-5.1) mmol/L Chloride 102 (98-107) mmol/L Carbon Dioxide 14 L (22-30) mmol/L Anion Gap 23 mmol/L BUN 6 L (9-20) mg/dL Creatinine 0.72 (0.66-1.25) mg/dL Est GFR (CKD-EPI)AfAm >90 (>60 ml/min/1.73 sqM) Est GFR (CKD-EPI)NonAf >90 (>60 ml/min/1.73 sqM) Glucose 83 (74-99) mg/dL Calcium 8.6 (8.4-10.2) mg/dL Magnesium 1.8 (1.6-2.3) mg/dL Total Bilirubin 1.7 H (0.2-1.3) mg/dL AST 226 H (17-59) U/L ALT 130 H (4-49) U/L Alkaline Phosphatase 133 H (38-126) U/L Troponin I (0.000-0.034) ng/mL Total Protein 7.4 (6.3-8.2) g/dL Albumin 4.4 (3.5-5.0) g/dL Serum Alcohol mg/dL 03/21/22 03/21/22 Range/Units 13:43 14:32 WBC (3.8-10.6) k/uL RBC (4.30-5.90) m/uL Hgb (13.0-17.5) gm/dL Hct (39.0-53.0) % MCV (80.0-100.0) fL MCH (25.0-35.0) pg MCHC (31.0-37.0) g/dL RDW (11.5-15.5) % Plt Count (150-450) k/uL MPV Neutrophils % % Lymphocytes % % Monocytes % % Eosinophils % % Basophils % % Neutrophils # (1.3-7.7) k/uL Lymphocytes # (1.0-4.8) k/uL Monocytes # (0-1.0) k/uL Eosinophils # (0-0.7) k/uL Basophils # (0-0.2) k/uL Macrocytosis PT (9.0-12.0) sec INR (<1.2) APTT (22.0-30.0) sec Sodium (137-145) mmol/L Potassium (3.5-5.1) mmol/L Chloride (98-107) mmol/L Carbon Dioxide (22-30) mmol/L Anion Gap mmol/L BUN (9-20) mg/dL Creatinine (0.66-1.25) mg/dL Est GFR (CKD-EPI)AfAm (>60 ml/min/1.73 sqM) Est GFR (CKD-EPI)NonAf (>60 ml/min/1.73 sqM) Glucose (74-99) mg/dL Calcium (8.4-10.2) mg/dL Magnesium (1.6-2.3) mg/dL Total Bilirubin (0.2-1.3) mg/dL AST (17-59) U/L ALT (4-49) U/L Alkaline Phosphatase (38-126) U/L Troponin I 0.024 (0.000-0.034) ng/mL Total Protein (6.3-8.2) g/dL Albumin (3.5-5.0) g/dL Serum Alcohol 177 mg/dL Disposition Clinical Impression: Chest pain, Alcohol intoxication Disposition: ADMITTED IP TO THIS [facility] Referrals: Devin Bauman MD [Primary Care Provider] - 1-2 days Time of Disposition: 15:18
[2022-03-21 13:58] LABS: Basophils % (A) 1 %; Eosinophils % (A) 0 %; Lymphocytes # (A) 0.7 k/uL (1.0-4.8); Lymphocytes % (A) 18 %; MCH 34.3 pg (25.0-35.0); MCHC 32.5 g/dL (31.0-37.0); MCV 105.5 fL (80.0-100.0); Macrocytosis Moderate; Mean Platelet Volume 8.9; Monocytes # (A) 0.3 k/uL (0-1.0); Monocytes % (A) 8 %; Neutrophils # (A) 2.8 k/uL (1.3-7.7); Neutrophils % (A) 69 %; Platelet Count 213 k/uL (150-450); RBC 4.36 m/uL (4.30-5.90); RDW 15.1 % (11.5-15.5)
[2022-03-21 14:04] LABS: INR 1.1 (<1.2); Partial Thromboplastin Time 24.4 sec (22.0-30.0); Prothrombin Time 11.7 sec (9.0-12.0)
--- NOTE | 2022-03-21 14:09 | XR ---
EXAMINATION TYPE: XR chest 2V DATE OF EXAM: 03/21/2022 COMPARISON: Chest x-ray 05/11/2021 HISTORY: Chest pain, nausea and vomiting TECHNIQUE: Frontal and lateral views of the chest are obtained. FINDINGS: There is no focal air space opacity, pleural effusion, or pneumothorax seen. The cardiac silhouette size is within normal limits. The osseous structures are intact. IMPRESSION: No acute cardiopulmonary process.
[2022-03-21 14:21] LABS: ALT 130 U/L (4-49); AST 226 U/L (17-59); African American GFR (CKD) >90 (>60 ml/min/1.73 sqM); Albumin 4.4 g/dL (3.5-5.0); Alkaline Phosphatase 133 U/L (38-126); Anion Gap 23 mmol/L; Blood Urea Nitrogen 6 mg/dL (9-20); Calcium 8.6 mg/dL (8.4-10.2); Carbon Dioxide 14 mmol/L (22-30); Chloride 102 mmol/L (98-107); Glucose 83 mg/dL (74-99); Magnesium 1.8 mg/dL (1.6-2.3); Non-African American GFR(CKD) >90 (>60 ml/min/1.73 sqM); Sodium 139 mmol/L (137-145); Total Bilirubin 1.7 mg/dL (0.2-1.3); Total Protein 7.4 g/dL (6.3-8.2)
[2022-03-21 14:23] LABS: Potassium 4.7 mmol/L (3.5-5.1)
[2022-03-21] MEDS ORDERED: NITROGLYCERIN SL TABS 0.4 MG TAB SUBLINGUAL PRN (15:19)
[2022-03-21] MEDS ORDERED: THIAMINE 100 MG/ML 2 ML VIAL IM STA (15:22)
[2022-03-21] MEDS ORDERED: LORazepam 2 MG/ML INJ IV PRN ×2 (15:22)
[2022-03-21] MEDS: LORazepam 2 MG/ML INJ IV PRN (15:56)
[2022-03-21] MEDS: THIAMINE 100 MG TAB PO SCH (17:54)
[2022-03-21] MEDS: NITROGLYCERIN OINT 1 INCH/GM PACKET TOPICAL SCH (22:11)
[2022-03-22] MEDS: NITROGLYCERIN OINT 1 INCH/GM PACKET TOPICAL SCH ×2 (01:18→06:31)
[2022-03-22] MEDS: THIAMINE 100 MG TAB PO SCH (08:09)
[2022-03-22] MEDS ORDERED: ONDANSETRON 4 MG/2 ML VIAL IVP PRN (08:41)
[2022-03-22] MEDS: LORazepam 2 MG/ML INJ IV PRN (08:51)
[2022-03-22] MEDS ORDERED: Magnesium Replacement Protocol 1 EACH MISC MISCELLANE PRN (09:00)
[2022-03-22] MEDS ORDERED: ASPIRIN 325 MG TAB PO SCH (09:00)
[2022-03-22] MEDS ORDERED: PANTOPRAZOLE 40 MG TABLET PO SCH (09:00)
--- NOTE | 2022-03-22 10:08 | P.CRDCN ---
History of Present Illness History of present illness: HISTORY OF PRESENTING ILLNESS This is a pleasant 56-year-old male past medical history significant for paroxysmal atrial fibrillation not on fdc anticoagulation CHADS-VASC is 0, alcohol abuse and history of alcohol withdrawal seizure. He also vaguely describes a history of some esophageal tear. He follows in the office with Dr. Burns. We have been asked to see in consultation for chest pain. He states he began drinking beer heavily 03/20 night. Yesterday he began to have symptoms of nausea, vomiting. Also had midsternal chest pressure and some associated diaphoresis and shortness of breath. He also exhibits tremors bilateral upper extremities. Non-radiating, non-exertional. He denies any lightheadedness, dizziness, palpitations, syncope or near-syncope. He continues to drink beer heavily daily. He denies any history of CAD, CO, Stroke, Diabetes, Hypertension. Denies tobacco use. DIAGNOSTICS EKG reveals sinus tachycardia, heart rate 103, no significant ST history of ab normalities suggest ischemia. Prior EKG was similar findings Telemetry tracings indicate sinus mechanism with no arrhythmia. Chest xray negative for an acute cardiopulmonary process. Laboratory reviewed, troponin negative 3, LFTs elevated, AST 226, ALT 1:30, alkaline phosphatase 133, serum alcohol 177, sodium 139, potassium 4.7, BUN 6, serum from 0.7 WBC 4.0, hemoglobin 15, platelets 213 He takes no daily cardiac medications. Patient takes omeprazole Most recent echocardiogram obtained in March 2021 revealed preserved LV systolic function with no evidence of wall motion abnormalities. Most recent stress test performed 05/2021- Dobutamine stress Echo was negative for stress induced ischemia REVIEW OF SYSTEMS At the time of my exam: CONSTITUTIONAL: Denies fever or chills. CARDIOVASCULAR: Complains of chest pain. Denies shortness of breath, orthopnea, PND or palpitations. RESPIRATORY: Denies cough. GASTROINTESTINAL: Denies abdominal pain, diarrhea, constipation,+nausea + vomiting. MUSCULOSKELETAL: Denies myalgias. NEUROLOGIC: Denies numbness, tingling, headacbe or weakness. ENDOCRINE: Denies fatigue, weight change, polydipsia or polyurina. GENITOURINARY: Denies burning, hematuria or urgency with micturation. HEMATOLOGIC: Denies history of anemia or bleeding. PHYSICAL EXAMINATION Blood pressure 124/80, heart rate 87, afebrile, oxygen saturation 95% room air CONSTITUTIONAL: No apparent distress. HEENT: Head is normocephalic. Pupils are equal, round. Sclerae anicteric. Mucous membranes of the mouth are moist. No JVD. No carotid bruit. CHEST EXAMINATION: Lungs are clear to auscultation. No chest wall tenderness is noted on palpation or with deep breathing. HEART EXAMINATION: Regular rate and rhythm. S1, S2 heard. No murmurs, gallops or rub. ABDOMEN: Soft, nontender. Positive bowel sounds. EXTREMITIES: 2+ peripheral pulses, no lower extremity edema and no calf t enderness. NEUROLOGIC EXAMINATION: Patient is awake, alert and oriented x3. Tremors noted on exam in the bilateral upper extremities. ASSESSMENT Nausea, Vomiting Alcohol withdrawal Elevated LFTs Chest pain, atypical, acute coronary syndrome has been ruled out Paroxysmal atrial fibrillation maintaining sinus mechanism, not on fdc anticoagulation CHADS-VASC is 0 Alcohol abuse Acute alcohol intoxication PLAN From a cardiology perspective, acute coronary syndrome has been ruled out. Pat ient with recent Echocardiogram March 2021 revealed preserved LV systolic function with no evidence of wall motion abnormalities. Recent stress test performed 05/2021- Dobutamine stress Echo was negative for stress induced ischemia. Recommend continued treatment for alcohol withdrawal at this time. No further inpatient testing for chest pain at this time. We will follow the patient as needed. Please re-consult if needed. Thank you kindly for this consultation. Nurse Practitioner note has been reviewed, I agree with a documented findings and plan of care. Patient was seen and examined. Past Medical History Past Medical History: Atrial Fibrillation, GERD/Reflux Additional Past Medical History / Comment(s): hiatal hernia,hypoglycemia, Alcohol abuse History of Any Multi-Drug Resistant Organisms: None Reported Past Surgical History: Hernia Repair, Orthopedic Surgery Additional Past Surgical History / Comment(s): hiatal hernia repair, rt knee surgery Past Anesthesia/Blood Transfusion Reactions: No Reported Reaction Additional Past Anesthesia/Blood Transfusion Reaction / Comment(s): no hx blood transfusions Past Psychological History: PTSD Additional Psychological History / Comment(s): follows Counselor [facility] Smoking Status: Never smoker Past Alcohol Use History: Abuse, Daily, Heavy Additional Past Alcohol Use History / Comment(s): drinks four to five 24 ounces per day approx. Past Drug Use History: None Reported - Past Family History Father Family Medical History: Cancer, COPD, Hyperlipidemia, Hypertension Mother Family Medical History: Rheumatoid Arthritis (RA) Additional Family Medical History / Comment(s): Diverticulitis Medications and Allergies Home Medications Medication Instructions Recorded Confirmed Type Omeprazole 40 mg PO DAILY #30 capsule. 05/13/21 03/21/22 Rx Allergies Allergy/AdvReac Type Severity Reaction Status Date / Time No Known Allergies Allergy Verified 03/21/22 15:39 Physical Exam Vitals: Vital Signs Temp Pulse Pulse Resp BP BP Pulse Ox 03/22/22 02:15 98.4 F 88 18 124/76 94 L 03/21/22 20:00 97.5 F L 89 17 122/77 94 L 03/21/22 18:36 98.5 F 104 H 16 136/80 94 L 03/21/22 18:04 97.8 F 106 H 18 117/78 96 03/21/22 15:47 97 18 114/67 96 03/21/22 13:32 98.7 F 100 18 114/75 95 Intake and Output 03/21/22 03/22/22 03/22/22 22:59 06:59 14:59 Output Total 0 0 Balance 0 0 Output: Emesis 0 0 Other: Weight 89.811 kg Results 03/21/22 13:43 03/21/22 13:43 Cardiac Enzymes 03/21/22 03/21/22 03/21/22 Range/Units 13:43 13:43 16:04 AST 226 H (17-59) U/L Troponin I 0.024 0.029 (0.000-0.034) ng/mL 03/21/22 Range/Units 19:20 AST (17-59) U/L Troponin I <0.012 (0.000-0.034) ng/mL Coagulation 03/21/22 Range/Units 13:43 PT 11.7 (9.0-12.0) sec APTT 24.4 (22.0-30.0) sec CBC 03/21/22 Range/Units 13:43 WBC 4.0 (3.8-10.6) k/uL RBC 4.36 (4.30-5.90) m/uL Hgb 15.0 (13.0-17.5) gm/dL Hct 46.0 (39.0-53.0) % Plt Count 213 (150-450) k/uL Comprehensive Metabolic Panel 03/21/22 Range/Units 13:43 Sodium 139 (137-145) mmol/L Potassium 4.7 (3.5-5.1) mmol/L Chloride 102 (98-107) mmol/L Carbon Dioxide 14 L (22-30) mmol/L BUN 6 L (9-20) mg/dL Creatinine 0.72 (0.66-1.25) mg/dL Glucose 83 (74-99) mg/dL Calcium 8.6 (8.4-10.2) mg/dL AST 226 H (17-59) U/L ALT 130 H (4-49) U/L Alkaline Phosphatase 133 H (38-126) U/L Total Protein 7.4 (6.3-8.2) g/dL Albumin 4.4 (3.5-5.0) g/dL Current Medications Generic Name Dose Route Start Last Admin Trade Name Freq PRN Reason Stop Dose Admin Aspirin 325 mg 03/22/22 09:00 Aspirin 325 Mg Tab PO DAILY EILEEN Lorazepam 1 mg 03/21/22 15:22 03/21/22 15:56 Lorazepam 2 Mg/Ml Inj IV 1 mg Q2HR PRN Administration CIWA 8 or 9 Lorazepam 1 mg 03/21/22 15:22 Lorazepam 2 Mg/Ml Inj IV Q1HR PRN CIWA 10 to 15 Lorazepam 2 mg 03/21/22 15:22 Lorazepam 2 Mg/Ml Inj IV 03/23/22 15:22 Q10M PRN CIWA 16 or higher Nitroglycerin 0.4 mg 03/21/22 15:19 Nitroglycerin Sl Tabs 0.4 Mg Tab SUBLINGUAL Q5M PRN Chest Pain Nitroglycerin 1 inch 03/21/22 18:00 03/22/22 06:31 Nitroglycerin Oint 1 Inch/Gm Packet TOPICAL 1 inch Q6HR EILEEN Administration Thiamine HCl 100 mg 03/21/22 17:30 03/21/22 17:54 Thiamine 100 Mg Tab PO Not Given BID-W/MEALS EILEEN Intake and Output 03/21/22 03/22/22 03/22/22 22:59 06:59 14:59 Output Total 0 0 Balance 0 0 Output: Emesis 0 0 Other: Weight 89.811 kg 03/21/22 13:43 03/21/22 13:43
[2022-03-22 10:22] LABS: LDL Cholesterol,Calculated 144.5 mg/dL (0.0-131.0)
[2022-03-22 13:40] VITALS: BP 124/79; PULSE 103; RESP 18; TEMP 98.7
--- NOTE | 2022-03-22 17:33 | P.HPIM ---
History of Present Illness H&P Date: 03/22/22 Chief Complaint: Alcohol intoxication with chest pain History and Physical and Discharge summary This is a 56-year-old gentleman presented to the ER intoxicated with complaints of chest pain in a patient with history of daily alcohol abuse, depression and multiple other medical issues. He reports he had not been drinking the couple days prior consumed" 3 1/2 tall boys" (beer). An admission serum alcohol 177, total bili 1.7, AST 226, ALT 1:30, alk phos 133. Telemetry sinus. Troponin 0.0- 4, 0.0-9, less than 0.012, evaluated by cardiology and cleared for discharge. Afebrile, chest x-ray nonacute. CIWA currrently 9. Denies chest pain, palp itations or shortness of breath. No significant tremors. Review of Systems ROS Statement: Those systems with pertinent positive or pertinent negative responses have been documented in the HPI. ROS Other: All systems not noted in ROS Statement are negative. Past Medical History Past Medical History: Atrial Fibrillation, GERD/Reflux Additional Past Medical History / Comment(s): hiatal hernia,hypoglycemia, Alcohol abuse History of Any Multi-Drug Resistant Organisms: None Reported Past Surgical History: Hernia Repair, Orthopedic Surgery Additional Past Surgical History / Comment(s): hiatal hernia repair, rt knee surgery Past Anesthesia/Blood Transfusion Reactions: No Reported Reaction Additional Past Anesthesia/Blood Transfusion Reaction / Comment(s): no hx blood transfusions Past Psychological History: PTSD Additional Psychological History / Comment(s): follows Counselor [facility] Smoking Status: Never smoker Past Alcohol Use History: Abuse, Daily, Heavy Additional Past Alcohol Use History / Comment(s): drinks four to five 24 ounces per day approx. Past Drug Use History: None Reported - Past Family History Father Family Medical History: Cancer, COPD, Hyperlipidemia, Hypertension Mother Family Medical History: Rheumatoid Arthritis (RA) Additional Family Medical History / Comment(s): Diverticulitis Medications and Allergies Home Medications Medication Instructions Recorded Confirmed Type Omeprazole 40 mg PO DAILY #30 capsule. 05/13/21 03/21/22 Rx Thiamine [Vitamin B-1] 100 mg PO DAILY #1 tab 03/22/22 Rx Allergies Allergy/AdvReac Type Severity Reaction Status Date / Time No Known Allergies Allergy Verified 03/21/22 15:39 Physical Exam Vitals: Vital Signs Temp Pulse Pulse Resp BP BP Pulse Ox 03/22/22 13:40 98.7 F 103 H 18 124/79 97 03/22/22 07:00 98.0 F 89 16 124/80 95 03/22/22 02:15 98.4 F 88 18 124/76 94 L 03/21/22 20:00 97.5 F L 89 17 122/77 94 L 03/21/22 18:36 98.5 F 104 H 16 136/80 94 L 03/21/22 18:04 97.8 F 106 H 18 117/78 96 Intake and Output 03/22/22 03/22/22 03/22/22 06:59 14:59 22:59 Intake Total 240 Output Total 0 1 Balance 0 239 Intake: Oral 240 Output: Emesis 0 1 Other: # Voids 4 GENERAL: Alert and oriented x3, no acute distress. Conversing appropriately, calm, cooperative. HEENT: Normocephalic, atraumatic ,Pupils are round and equally reacting to light. EOMI. No scleral icterus. No conjunctival pallor. CARDIOVASCULAR: S1 and S2 present. No murmurs, rubs, or gallops. PULMONARY: Chest is clear to auscultation, no wheezing or crackles. ABDOMEN: Soft, nontender, nondistended, normoactive bowel sounds. NEUROLOGICAL: Gross neurological examination did not reveal any focal deficits. SKIN: warm & dry, no rashes Results CBC & Chem 7: 03/21/22 13:43 03/21/22 13:43 Labs: Abnormal Lab Results - Last 24 Hours (Table) 03/22/22 Range/Units 06:35 Cholesterol 262.00 H (0.00-200.00) mg/dL LDL Cholesterol, Calc 144.5 H (0.0-131.0) mg/dL HDL Cholesterol 105.00 H (40.00-60.00) mg/dL Thrombosis Risk Factor Assmnt - Choose All That Apply Any of the Below Risk Factors Present?: Yes Each Factor Represents 1 point: Age 41-60 years Other Risk Factors: No Other congenital or acquired thrombophilia - If yes, enter type in comment: No Thrombosis Risk Factor Assessment Total Risk Factor Score: 1 Thrombosis Risk Factor Assessment Level: Low Risk Assessment and Plan Assessment: Chest pain, ACS ruled out as per cardiology. Suspect alcohol induced gastroesophageal reflux disease. Paroxysmal atrial fibrillation, currently sinus rhythm Alcohol intoxication, withdrawal, improved. Elevated LFTs Chronic Alcohol abuse Depression Gastroesophageal reflux disease, maintained on PPI Plan: Continue on current medication regime ,monitoring and symptomatic treatment. Substance abuse options recommended patient declining 12-step program. Reports he has an AA counselor. And is scheduled to follow-up with [facility]. Diet initiated and patient may be discharged home later this afternoon pending tolerating diet and seawall score further improves. Alcohol abstinence. Discharge Medication List Omeprazole 40 mg PO DAILY #30 capsule. 05/13/21 [Rx] Thiamine [Vitamin B-1] 100 mg PO DAILY #1 tab 03/22/22 [Rx] The impression and plan of care has been dictated as directed. : I performed a history and examination of this patient, discussed the same with the dictator. I agree with the dictator's note ,documented as a scribe. Any additional findings or plans will be noted.
[2022-03-23] MEDS ORDERED: ASPIRIN 81 MG PO SCH (09:00)
== END 2022-03-22 13:47 | disposition home or self-care (01) ==
LOC: EC 13:28 → 6NMEDSUR 15:19
PROVIDERS: ADMIT Family Medicine; ATTEND Family Medicine
DX: R07.89 Other chest pain (principal); K21.9 Gastro-esophageal reflux disease without esophagitis; I48.0 Paroxysmal atrial fibrillation; F10.239 Alcohol dependence with withdrawal, unspecified; F10.229 Alcohol dependence with intoxication, unspecified; Y90.6 Blood alcohol level of 120-199 mg/100 ml; R79.89 Other specified abnormal findings of blood chemistry; F32.A Depression, unspecified; F43.10 Post-traumatic stress disorder, unspecified; K44.9 Diaphragmatic hernia without obstruction or gangrene; Z79.899 Other long term (current) drug therapy; Z71.41 Alcohol abuse counseling and surveillance of alcoholic; Z82.49 Family history of ischemic heart disease and other diseases of the circulatory system; Z82.5 Family history of asthma and other chronic lower respiratory diseases; Z80.9 Family history of malignant neoplasm, unspecified; Z82.61 Family history of arthritis; Z83.42 Family history of familial hypercholesterolemia; Z83.79 Family history of other diseases of the digestive system
CPT/HCPCS: 99285; 96376 ×2; 96375; 96361; 96372; 96374; 36415; 93005; 80061; 80053; 83735; 84484; 85025; 85610; 85730; 71046; G0378 ×2; G0480; J2060 ×2; J3411; J2405; 80320

== ENCOUNTER 2022-04-05 14:00 | Emergency (ER) | payer OTHER ==
[2022-04-05] MEDS ORDERED: SODIUM CHLORIDE 0.9% 500 ML 500 ML IV STA (14:01)
[2022-04-05] MEDS ORDERED: LORazepam 2 MG/ML INJ IV STA (14:02)
[2022-04-05 14:08] VITALS: TEMP 98.2
--- NOTE | 2022-04-05 14:11 | ED ---
General Adult HPI - General Stated complaint: Dizziness Time Seen by Provider: 04/05/22 14:01 Source: patient, EMS, RN notes reviewed, old records reviewed Limitations: no limitations - History of Present Illness Initial comments: 56-year-old male presents for evaluation of chest pain. Pain began just prior to arrival. He was associated with nausea and vomiting. Patient states he has had episodes similar to this in the past. He admits alcohol use yesterday evening. He denies alcohol use today. He states he has had some recurrent episodes similar to this in the past. No dyspnea, no cough or fever. He is given aspirin and nitroglycerin by paramedics during transport. EKG did not show ST segment changes according to EMS. - Related Data Previous Rx's Medication Instructions Recorded Omeprazole 40 mg PO DAILY #30 capsule. 05/13/21 Allergies Allergy/AdvReac Type Severity Reaction Status Date / Time No Known Allergies Allergy Verified 04/05/22 15:21 Review of Systems ROS Statement: Those systems with pertinent positive or pertinent negative responses have been documented in the HPI. ROS Other: All systems not noted in ROS Statement are negative. Past Medical History Past Medical History: Atrial Fibrillation, GERD/Reflux Additional Past Medical History / Comment(s): hiatal hernia,hypoglycemia, Alcohol abuse History of Any Multi-Drug Resistant Organisms: None Reported Past Surgical History: Hernia Repair, Orthopedic Surgery Additional Past Surgical History / Comment(s): hiatal hernia repair, rt knee surgery Past Anesthesia/Blood Transfusion Reactions: No Reported Reaction Additional Past Anesthesia/Blood Transfusion Reaction / Comment(s): no hx blood transfusions Past Psychological History: PTSD Additional Psychological History / Comment(s): follows Counselor [facility] Smoking Status: Never smoker Past Alcohol Use History: Abuse, Daily, Heavy Additional Past Alcohol Use History / Comment(s): drinks four to five 24 ounces per day approx. Past Drug Use History: None Reported - Past Family History Father Family Medical History: Cancer, COPD, Hyperlipidemia, Hypertension Mother Family Medical History: Rheumatoid Arthritis (RA) Additional Family Medical History / Comment(s): Diverticulitis General Exam General appearance: alert, in no apparent distress Head exam: Present: atraumatic, normocephalic Eye exam: Present: normal appearance, PERRL, EOMI ENT exam: Present: mucous membranes dry Neck exam: Present: normal inspection. Absent: tenderness, meningismus Respiratory exam: Present: normal lung sounds bilaterally. Absent: respiratory distress, wheezes Cardiovascular Exam: Present: regular rate, normal rhythm GI/Abdominal exam: Present: soft. Absent: distended, tenderness, guarding Extremities exam: Present: normal inspection, normal capillary refill. Absent: pedal edema Neurological exam: Present: alert, oriented X3, CN II-XII intact. Absent: motor sensory deficit Psychiatric exam: Present: normal affect, normal mood Skin exam: Present: warm, dry, intact. Absent: cyanosis, diaphoretic, erythema Course Vital Signs 04/05/22 04/05/22 14:01 15:00 Temperature 98.2 F Pulse Rate 97 89 Respiratory 20 18 Rate Blood Pressure 127/88 120/80 O2 Sat by Pulse 95 95 Oximetry EKG Findings - EKG Comments: EKG Findings:: EKG: Sinus rhythm, rate of 99, MO interval 133, QRS duration 86, QTC 47, no ST segment elevation. Medical Decision Making - Medical Decision Making 56-year-old male presenting for evaluation of an episode of chest discomfort and vomiting. Patient admits to heavy alcohol consumption yesterday. His alcohol level in the emergency Department is 200. He has a history of alcohol use. His EKG is sinus rhythm without ST segment elevation or acute changes. Chest x-ray is clear. His laboratory testing reveals some transaminitis likely secondary to alcohol use. Negative troponin. I did discuss case with Dr. Bauman who is familiar with the patient. We discussed possibility of observation for dehydration and alcohol abuse. Patient offered observation but declines. He does agree to a second cardiac enzyme in the emergency department which is obtained and is negative. He does have a ride home. He is eager for discharge. - Lab Data Result diagrams: 04/05/22 14:13 04/05/22 14:13 Lab Results 04/05/22 04/05/22 04/05/22 Range/Units 14:13 14:13 14:13 WBC 3.5 L (3.8-10.6) k/uL RBC 4.12 L (4.30-5.90) m/uL Hgb 14.1 (13.0-17.5) gm/dL Hct 43.2 (39.0-53.0) % MCV 104.8 H (80.0-100.0) fL MCH 34.3 (25.0-35.0) pg MCHC 32.7 (31.0-37.0) g/dL RDW 13.8 (11.5-15.5) % Plt Count 91 L D (150-450) k/uL MPV 9.6 Neutrophils % 58 % Lymphocytes % 23 % Monocytes % 11 % Eosinophils % 1 % Basophils % 3 % Neutrophils # 2.0 (1.3-7.7) k/uL Lymphocytes # 0.8 L (1.0-4.8) k/uL Monocytes # 0.4 (0-1.0) k/uL Eosinophils # 0.0 (0-0.7) k/uL Basophils # 0.1 (0-0.2) k/uL Macrocytosis Moderate PT 10.6 (9.0-12.0) sec INR 1.0 (<1.2) APTT 22.5 (22.0-30.0) sec Sodium 139 (137-145) mmol/L Potassium 3.7 (3.5-5.1) mmol/L Chloride 105 (98-107) mmol/L Carbon Dioxide 22 (22-30) mmol/L Anion Gap 12 mmol/L BUN 3 L (9-20) mg/dL Creatinine 0.57 L (0.66-1.25) mg/dL Est GFR (CKD-EPI)AfAm >90 (>60 ml/min/1.73 sqM) Est GFR (CKD-EPI)NonAf >90 (>60 ml/min/1.73 sqM) Glucose 119 H (74-99) mg/dL Calcium 8.5 (8.4-10.2) mg/dL Magnesium 1.6 (1.6-2.3) mg/dL Total Bilirubin 0.9 (0.2-1.3) mg/dL AST 295 H (17-59) U/L ALT 115 H (4-49) U/L Alkaline Phosphatase 128 H (38-126) U/L Troponin I (0.000-0.034) ng/mL Total Protein 6.6 (6.3-8.2) g/dL Albumin 3.9 (3.5-5.0) g/dL Serum Alcohol 204 H* mg/dL 04/05/22 04/05/22 Range/Units 14:13 16:00 WBC (3.8-10.6) k/uL RBC (4.30-5.90) m/uL Hgb (13.0-17.5) gm/dL Hct (39.0-53.0) % MCV (80.0-100.0) fL MCH (25.0-35.0) pg MCHC (31.0-37.0) g/dL RDW (11.5-15.5) % Plt Count (150-450) k/uL MPV Neutrophils % % Lymphocytes % % Monocytes % % Eosinophils % % Basophils % % Neutrophils # (1.3-7.7) k/uL Lymphocytes # (1.0-4.8) k/uL Monocytes # (0-1.0) k/uL Eosinophils # (0-0.7) k/uL Basophils # (0-0.2) k/uL Macrocytosis PT (9.0-12.0) sec INR (<1.2) APTT (22.0-30.0) sec Sodium (137-145) mmol/L Potassium (3.5-5.1) mmol/L Chloride (98-107) mmol/L Carbon Dioxide (22-30) mmol/L Anion Gap mmol/L BUN (9-20) mg/dL Creatinine (0.66-1.25) mg/dL Est GFR (CKD-EPI)AfAm (>60 ml/min/1.73 sqM) Est GFR (CKD-EPI)NonAf (>60 ml/min/1.73 sqM) Glucose (74-99) mg/dL Calcium (8.4-10.2) mg/dL Magnesium (1.6-2.3) mg/dL Total Bilirubin (0.2-1.3) mg/dL AST (17-59) U/L ALT (4-49) U/L Alkaline Phosphatase (38-126) U/L Troponin I <0.012 <0.012 (0.000-0.034) ng/mL Total Protein (6.3-8.2) g/dL Albumin (3.5-5.0) g/dL Serum Alcohol mg/dL Disposition Clinical Impression: Chest pain, Alcohol intoxication, Elevated LFTs Disposition: HOME SELF-CARE Condition: Fair Instructions (If sedation given, give patient instructions): Chest Pain (ED), Alcohol Intoxication (ED) Is patient prescribed a controlled substance at d/c from ED?: No Referrals: Devin Bauman MD [Primary Care Provider] - 1-2 days
[2022-04-05 14:25] LABS: Basophils # (A) 0.1 k/uL (0-0.2); Basophils % (A) 3 %; Eosinophils % (A) 1 %; HCT 43.2 % (39.0-53.0); HGB 14.1 gm/dL (13.0-17.5); Lymphocytes # (A) 0.8 k/uL (1.0-4.8); Lymphocytes % (A) 23 %; MCH 34.3 pg (25.0-35.0); MCHC 32.7 g/dL (31.0-37.0); MCV 104.8 fL (80.0-100.0); Macrocytosis Moderate; Mean Platelet Volume 9.6; Monocytes # (A) 0.4 k/uL (0-1.0); Monocytes % (A) 11 %; Neutrophils % (A) 58 %; RBC 4.12 m/uL (4.30-5.90); RDW 13.8 % (11.5-15.5); WBC 3.5 k/uL (3.8-10.6)
--- NOTE | 2022-04-05 14:26 | XR ---
EXAMINATION TYPE: XR chest 2V DATE OF EXAM: 04/05/2022 COMPARISON: 03/21/2022 TECHNIQUE: PA and lateral views submitted. HISTORY: Chest pain FINDINGS: The lungs are clear and there is no pneumothorax, pleural effusion, or focal pneumonia. Heart size normal. No overt failure. Hyperinflation suggests COPD. IMPRESSION: 1. No acute process.
[2022-04-05 14:34] LABS: Partial Thromboplastin Time 22.5 sec (22.0-30.0); Prothrombin Time 10.6 sec (9.0-12.0)
[2022-04-05 14:36] LABS: ALT 115 U/L (4-49); AST 295 U/L (17-59); African American GFR (CKD) >90 (>60 ml/min/1.73 sqM); Albumin 3.9 g/dL (3.5-5.0); Alkaline Phosphatase 128 U/L (38-126); Anion Gap 12 mmol/L; Blood Urea Nitrogen 3 mg/dL (9-20); Calcium 8.5 mg/dL (8.4-10.2); Carbon Dioxide 22 mmol/L (22-30); Chloride 105 mmol/L (98-107); Glucose 119 mg/dL (74-99); Magnesium 1.6 mg/dL (1.6-2.3); Non-African American GFR(CKD) >90 (>60 ml/min/1.73 sqM); Potassium 3.7 mmol/L (3.5-5.1); Sodium 139 mmol/L (137-145); Total Bilirubin 0.9 mg/dL (0.2-1.3); Total Protein 6.6 g/dL (6.3-8.2)
[2022-04-05 14:38] LABS: Alcohol 204 mg/dL
[2022-04-05 15:03] LABS: Platelet Count 91 k/uL (150-450)
[2022-04-05] MEDS ORDERED: SODIUM CHLORIDE 0.9% 500 ML 500 ML IV ONE (15:10)
[2022-04-05 15:21] VITALS: RESP 18
[2022-04-05 17:53] VITALS: BP 121/79; PULSE 99
== END 2022-04-05 17:54 | disposition home or self-care (01) ==
LOC: EC 14:00
DX: R07.89 Other chest pain (principal); F10.129 Alcohol abuse with intoxication, unspecified; R79.89 Other specified abnormal findings of blood chemistry; R42 Dizziness and giddiness; Y90.7 Blood alcohol level of 200-239 mg/100 ml
CPT/HCPCS: 36415; 93005; 80053; 83735; 84484; 85025; 85610; 85730; 71046; 99285; 96374; 96361; G0480; J2060; 80320

== ENCOUNTER 2022-04-30 22:24 | Inpatient (IN) | payer OTHER ==
[2022-04-30] MEDS ORDERED: SODIUM CHLORIDE 0.9% 1,000 ML IV STA (23:04)
[2022-04-30] MEDS ORDERED: ASPIRIN 81 MG PO STA (23:04)
[2022-04-30] MEDS ORDERED: ONDANSETRON 4 MG/2 ML VIAL IVP STA (23:04)
[2022-04-30] MEDS ORDERED: PANTOPRAZOLE 40 MG/10 ML VIAL IVP STA (23:06)
--- NOTE | 2022-04-30 23:09 | ED ---
General Adult HPI - General Chief complaint: Chest Pain Stated complaint: Chest Pain Time Seen by Provider: 04/30/22 22:37 Source: patient, RN notes reviewed Mode of arrival: EMS Limitations: no limitations - History of Present Illness Initial comments: 56-year-old male presents to the emergency department via EMS with complaints of midsternal chest pressure and epigastric pain, onset this afternoon. Patient states he was given nitro and aspirin via EMS and arrived with resolution of pain. Does report heavy alcohol intake the past 2-3 days. Also endorses increased stress. Has had several episodes of vomiting today. No hematemesis or hematochezia. Reports recent hospitalization at [facility] for same complaints. Denies fever, chills, headache, dizziness, shortness of breath, difficulty breathing, abdominal pain, diarrhea, or dysuria. - Related Data Previous Rx's Medication Instructions Recorded Omeprazole 40 mg PO DAILY #30 capsule. 05/13/21 Allergies Allergy/AdvReac Type Severity Reaction Status Date / Time No Known Allergies Allergy Verified 04/05/22 15:21 Review of Systems ROS Statement: Those systems with pertinent positive or pertinent negative responses have been documented in the HPI. ROS Other: All systems not noted in ROS Statement are negative. Past Medical History Past Medical History: Atrial Fibrillation, GERD/Reflux Additional Past Medical History / Comment(s): hiatal hernia,hypoglycemia, Alcohol abuse History of Any Multi-Drug Resistant Organisms: None Reported Past Surgical History: Hernia Repair, Orthopedic Surgery Additional Past Surgical History / Comment(s): hiatal hernia repair, rt knee surgery Past Anesthesia/Blood Transfusion Reactions: No Reported Reaction Additional Past Anesthesia/Blood Transfusion Reaction / Comment(s): no hx blood transfusions Past Psychological History: PTSD Smoking Status: Never smoker Past Alcohol Use History: Abuse, Daily, Heavy Past Drug Use History: None Reported - Past Family History Father Family Medical History: Cancer, COPD, Hyperlipidemia, Hypertension Mother Family Medical History: Rheumatoid Arthritis (RA) Additional Family Medical History / Comment(s): Diverticulitis General Exam Limitations: no limitations General appearance: alert, in no apparent distress (Well-developed, well- nourished male in no acute distress. Initial temperature 97.6, pulse 90, respirations 16, blood pressure 146/95, pulse ox 97% on room air.) Head exam: Present: atraumatic, normocephalic, normal inspection Eye exam: Present: normal appearance, PERRL, EOMI. Absent: scleral icterus, co njunctival injection, periorbital swelling ENT exam: Present: mucous membranes moist Neck exam: Present: normal inspection, full ROM. Absent: lymphadenopathy Respiratory exam: Present: normal lung sounds bilaterally. Absent: respiratory distress, wheezes, rales, rhonchi, stridor Cardiovascular Exam: Present: regular rate, normal rhythm, normal heart sounds. Absent: systolic murmur, diastolic murmur, rubs, gallop, clicks GI/Abdominal exam: Present: soft, tenderness (mild epigastric tenderness upon palpation), normal bowel sounds. Absent: distended, guarding, rebound, rigid Back exam: Absent: CVA tenderness (R), CVA tenderness (L) Expanded Neurological exam: Present: tremor (reports baseline tremor that worsens while sleeping) Patient oriented to: Present: person, place, time Speech: Present: fluid speech Cranial nerves: EOM's Intact: Normal, Tongue Deviation: Normal, Nystagmus: Normal Cerebellar function: Finger to Nose: Normal Motor strength exam: RUE: 5, LUE: 5, RLE: 5, LLE: 5 Eye Response: (4) open spontaneously Motor Response: (6) obeys commands Verbal Response: (5) oriented [place] Total: 15 Psychiatric exam: Present: normal affect, normal mood Skin exam: Present: warm, dry, intact, normal color, other (scattered contusions left lower forearm). Absent: rash Course Vital Signs 04/30/22 05/01/22 22:32 03:00 Temperature 97.6 F Pulse Rate 90 73 Respiratory 16 16 Rate Blood Pressure 146/95 104/71 O2 Sat by Pulse 97 Oximetry - Reevaluation(s) Reevaluation #1: 05/01/22 00:05 Patient is resting comfortably at this time. Agreeable with admission plan of care related to elevated lipase and ETOH. Continues to answer questions appropriately. Does have restless tremor, though continues to insist that this is normal for him. Neurologically intact with no focal deficits. Made aware that he is NPO at this time. Medical Decision Making - Medical Decision Making This is a 56-year-old male with a past medical history of alcohol abuse who presents to the emergency department for evaluation of chest and epigastric pain. There is question of atrial fibrillation diagnosis. Patient states he is scheduled to see a labor relations teacher this week. Upon arrival, he has a normal sinus rhythm and chest pain has resolved. His physical exam findings do reveal trem ors and vomiting. Laboratory studies were obtained. Patient is hypoglycemic with a glucose of 62 therefore was given half an amp of D50- repeat Accu-Chek 95. AST 378, ALT 145, alkaline phosphatase 167. Troponin negative. Lipase 1448. Serum alcohol 331. Chest x-ray is unremarkable. CT of the abdomen and pelvis shows no acute findings. Patient will be admitted to the hospital for fluid hydration due to pancreatitis and alcohol intoxication. This patient's care was discussed with my attending, . - Lab Data Result diagrams: 04/30/22 23:04 04/30/22 23:04 Lab Results 04/30/22 04/30/22 04/30/22 Range/Units 23:04 23:04 23:04 WBC 3.9 (3.8-10.6) k/uL RBC 4.30 (4.30-5.90) m/uL Hgb 14.3 (13.0-17.5) gm/dL Hct 46.0 (39.0-53.0) % MCV 107.0 H (80.0-100.0) fL MCH 33.2 (25.0-35.0) pg MCHC 31.0 (31.0-37.0) g/dL RDW 13.6 (11.5-15.5) % Plt Count 101 L (150-450) k/uL MPV 9.2 Neutrophils % 49 % Lymphocytes % 37 % Monocytes % 9 % Eosinophils % 0 % Basophils % 2 % Neutrophils # 1.9 (1.3-7.7) k/uL Lymphocytes # 1.4 (1.0-4.8) k/uL Monocytes # 0.3 (0-1.0) k/uL Eosinophils # 0.0 (0-0.7) k/uL Basophils # 0.1 (0-0.2) k/uL Macrocytosis Moderate PT 11.1 (9.0-12.0) sec INR 1.0 (<1.2) APTT 23.8 (22.0-30.0) sec Sodium 139 (137-145) mmol/L Potassium 3.9 (3.5-5.1) mmol/L Chloride 100 (98-107) mmol/L Carbon Dioxide 14 L (22-30) mmol/L Anion Gap 25 mmol/L BUN 6 L (9-20) mg/dL Creatinine 0.61 L (0.66-1.25) mg/dL Est GFR (CKD-EPI)AfAm >90 (>60 ml/min/1.73 sqM) Est GFR (CKD-EPI)NonAf >90 (>60 ml/min/1.73 sqM) Glucose 62 L (74-99) mg/dL Calcium 8.8 (8.4-10.2) mg/dL Magnesium 1.6 (1.6-2.3) mg/dL Total Bilirubin 1.4 H (0.2-1.3) mg/dL AST 378 H (17-59) U/L ALT 145 H (4-49) U/L Alkaline Phosphatase 167 H (38-126) U/L Troponin I (0.000-0.034) ng/mL Total Protein 7.3 (6.3-8.2) g/dL Albumin 4.4 (3.5-5.0) g/dL Lipase 1448 H (23-300) U/L Serum Alcohol 331 H* mg/dL 04/30/22 Range/Units 23:04 WBC (3.8-10.6) k/uL RBC (4.30-5.90) m/uL Hgb (13.0-17.5) gm/dL Hct (39.0-53.0) % MCV (80.0-100.0) fL MCH (25.0-35.0) pg MCHC (31.0-37.0) g/dL RDW (11.5-15.5) % Plt Count (150-450) k/uL MPV Neutrophils % % Lymphocytes % % Monocytes % % Eosinophils % % Basophils % % Neutrophils # (1.3-7.7) k/uL Lymphocytes # (1.0-4.8) k/uL Monocytes # (0-1.0) k/uL Eosinophils # (0-0.7) k/uL Basophils # (0-0.2) k/uL Macrocytosis PT (9.0-12.0) sec INR (<1.2) APTT (22.0-30.0) sec Sodium (137-145) mmol/L Potassium (3.5-5.1) mmol/L Chloride (98-107) mmol/L Carbon Dioxide (22-30) mmol/L Anion Gap mmol/L BUN (9-20) mg/dL Creatinine (0.66-1.25) mg/dL Est GFR (CKD-EPI)AfAm (>60 ml/min/1.73 sqM) Est GFR (CKD-EPI)NonAf (>60 ml/min/1.73 sqM) Glucose (74-99) mg/dL Calcium (8.4-10.2) mg/dL Magnesium (1.6-2.3) mg/dL Total Bilirubin (0.2-1.3) mg/dL AST (17-59) U/L ALT (4-49) U/L Alkaline Phosphatase (38-126) U/L Troponin I <0.012 (0.000-0.034) ng/mL Total Protein (6.3-8.2) g/dL Albumin (3.5-5.0) g/dL Lipase (23-300) U/L Serum Alcohol mg/dL - EKG Data EKG shows normal: sinus rhythm Rate: normal EKG Comments: EKG obtained at 2231 shows sinus rhythm with ventricular rate 93, MO interval 183, QRS duration 93, QT/QTC 370/421. Interpretation normal ECG. - Radiology Data Radiology results: report reviewed, image reviewed Two-view chest x-ray was obtained. Report was reviewed in its entirety. Impression per Dr. Jones is normal chest. No change. CT of the abdomen and pelvis with contrast was obtained. Report was reviewed in its entirety. Impression per Dr. Jones is no acute abnormality of the abdomen and pelvis. Fatty infiltration of the liver. Small hiatal hernia. There is clearing of the dilated small bowel compared to old exam. There is clearing of the free fluid in the pelvis compared to old exam. Disposition Clinical Impression: Pancreatitis, Alcohol intoxication Disposition: ADMITTED IP TO THIS [facility] Condition: Serious Decision Date: 05/01/22 Decision Time: 02:10
[2022-05-01] MEDS ORDERED: MAG HYDROX/AL HYDROX/SIMETH 30 ML, HYOSCYAMINE ELIXIR 10 ML, LIDOCAINE VISCOUS 2% 10 ML PO STA ×3 (00:01)
[2022-05-01 00:06] LABS: Basophils # (A) 0.1 k/uL (0-0.2); Basophils % (A) 2 %; Eosinophils % (A) 0 %; HGB 14.3 gm/dL (13.0-17.5); Lymphocytes # (A) 1.4 k/uL (1.0-4.8); Lymphocytes % (A) 37 %; MCH 33.2 pg (25.0-35.0); Macrocytosis Moderate; Mean Platelet Volume 9.2; Monocytes # (A) 0.3 k/uL (0-1.0); Monocytes % (A) 9 %; Neutrophils # (A) 1.9 k/uL (1.3-7.7); Neutrophils % (A) 49 %; Platelet Count 101 k/uL (150-450); RDW 13.6 % (11.5-15.5); WBC 3.9 k/uL (3.8-10.6)
[2022-05-01 00:16] LABS: Partial Thromboplastin Time 23.8 sec (22.0-30.0); Prothrombin Time 11.1 sec (9.0-12.0)
--- NOTE | 2022-05-01 00:17 | XR ---
EXAMINATION TYPE: XR chest 2V DATE OF EXAM: 04/30/2022 COMPARISON: 04/05/2022 HISTORY: Weakness TECHNIQUE: FINDINGS: Heart and mediastinum are normal. Lungs are clear. Diaphragm is normal. Bony thorax appears normal. There are chest leads. IMPRESSION: Normal chest. No change.
[2022-05-01 00:47] LABS: ALT 145 U/L (4-49); AST 378 U/L (17-59); African American GFR (CKD) >90 (>60 ml/min/1.73 sqM); Albumin 4.4 g/dL (3.5-5.0); Alkaline Phosphatase 167 U/L (38-126); Anion Gap 25 mmol/L; Blood Urea Nitrogen 6 mg/dL (9-20); Calcium 8.8 mg/dL (8.4-10.2); Carbon Dioxide 14 mmol/L (22-30); Chloride 100 mmol/L (98-107); Glucose 62 mg/dL (74-99); Lipase 1448 U/L (23-300); Magnesium 1.6 mg/dL (1.6-2.3); Non-African American GFR(CKD) >90 (>60 ml/min/1.73 sqM); Potassium 3.9 mmol/L (3.5-5.1); Sodium 139 mmol/L (137-145); Total Bilirubin 1.4 mg/dL (0.2-1.3); Total Protein 7.3 g/dL (6.3-8.2)
[2022-05-01 01:13] LABS: Alcohol 331 mg/dL
[2022-05-01] MEDS ORDERED: SODIUM CHLORIDE 0.9% 1,000 ML IV STA (01:27)
[2022-05-01] MEDS ORDERED: DEXTROSE 50% SYRINGE 50 ML IVP STA ×2 (01:28→05:12)
--- NOTE | 2022-05-01 02:28 | CT ---
EXAMINATION TYPE: CT abdomen pelvis w con DATE OF EXAM: 05/01/2022 COMPARISON: 06/26/2016 HISTORY: Chest pain, vomitting. Epigastric, RUQ pain. CT DLP: 1030.3 mGycm Automated exposure control for dose reduction was used. CONTRAST: Performed with IV Contrast, patient injected with 100ml mL of Isovue 300. The lung bases are clear. No pleural effusion. Heart size is normal. No pericardial effusion. There i s small hiatal hernia. The stomach is intact. There is fatty infiltration of the liver. Gallbladder a ppears normal. The bile ducts are not dilated. Spleen is intact. There is no pancreatic mass. There is no adrenal mass. Kidneys show satisfactory contrast opacification. There is no hydronephrosi s. Ureters are not dilated. There is no retroperitoneal adenopathy. Bladder distends smoothly. No ing uinal hernia. No free fluid in the pelvis. Appendix is posterior and appears normal. There is no mese nteric edema. No ascites or free air. No sign of a bowel obstruction. The lumbar vertebrae have normal alignment. No compression fracture. Posterior elements are intact. T he hip joints are intact. Bony pelvis is intact. Sacroiliac joints appear normal. IMPRESSION: No acute abnormality of the abdomen and pelvis. Fatty infiltration of the liver. Small hiatal hernia. There is clearing of the dilated small bowel compared to old exam. There is clearing of the free flu id in the pelvis compared to old exam.
[2022-05-01 02:50] LABS: Glucose,Whole Blood 95 mg/dL (70-110)
[2022-05-01] MEDS ORDERED: ONDANSETRON 4 MG/2 ML VIAL IVP PRN (04:15)
[2022-05-01] MEDS ORDERED: HYDROmorphone 0.5 MG/0.5 ML SYRINGE IVP PRN (04:15)
[2022-05-01] MEDS ORDERED: NALOXONE 0.4 MG/ML 1 ML VIAL IV PRN (04:15)
[2022-05-01] MEDS ORDERED: LORazepam 2 MG/ML INJ IV PRN ×2 (04:18)
[2022-05-01] MEDS ORDERED: THIAMINE 100 MG/ML 2 ML VIAL IM ONE (04:30)
[2022-05-01] MEDS: SODIUM CHLORIDE 0.9% 1,000 ML IV SCH ×3 (04:57→19:56)
[2022-05-01 05:12] LABS: Glucose,Whole Blood 63 mg/dL (70-110)
[2022-05-01] MEDS: DEXTROSE 5%-0.45% NACL 1,000 ML IV SCH ×4 (05:46→22:57)
[2022-05-01 05:47] LABS: Glucose,Whole Blood 162 mg/dL (70-110)
[2022-05-01] MEDS: PANTOPRAZOLE 40 MG/10 ML VIAL IV SCH (07:46)
[2022-05-01] MEDS: LORazepam 2 MG/ML INJ IV PRN ×2 (07:46→12:17)
[2022-05-01] MEDS: MULTIVITAMINS, THERA 1 EACH TAB PO SCH (07:46)
[2022-05-01 09:29] LABS: Glucose,Whole Blood 88 mg/dL (70-110)
[2022-05-01 12:08] LABS: Glucose,Whole Blood 78 mg/dL (70-110)
[2022-05-01 13:16] LABS: Glucose,Whole Blood 79 mg/dL (70-110)
[2022-05-01] MEDS: THIAMINE 100 MG TAB PO SCH (17:15)
--- NOTE | 2022-05-01 22:33 | P.HPIM ---
History of Present Illness H&P Date: 05/01/22 Chief Complaint: abd pain Thom Lindsey is a 56 yo M with PMH of alcoholism, GERD, insomnia, major depression who presented to the ED complaining of acute onset abdominal pain. He has been seen multiple times in the hospital for chest pain associated with his alcohol use but states last night he woke up out of sleep feeling a severe pain in his deep chest. He denies any associated shortness of breath, radiation, diaphoresis. He has been compliant with his protonix. He notes he continues to drink "about a pint" of alcohol daily. On presentation vitals stable, trop negative, EKG NSR, lipase 1500, alcohol 330, AST 378. CT abd/pelvis no acute process. Review of Systems All systems: negative Constitutional: Reports malaise, Denies chills, Denies fever Eyes: denies blurred vision, denies pain Ears, nose, mouth and throat: Denies headache, Denies sore throat Cardiovascular: Denies chest pain, Denies shortness of breath Respiratory: Denies cough Gastrointestinal: Reports abdominal pain, Denies diarrhea, Denies nausea, Denies vomiting Musculoskeletal: Denies myalgias Integumentary: Denies pruritus, Denies rash Neurological: Denies numbness, Denies weakness Psychiatric: Denies anxiety, Denies depression Endocrine: Denies fatigue, Denies weight change Past Medical History Past Medical History: Atrial Fibrillation, GERD/Reflux Additional Past Medical History / Comment(s): hiatal hernia,hypoglycemia, Alcohol abuse History of Any Multi-Drug Resistant Organisms: None Reported Past Surgical History: Hernia Repair, Orthopedic Surgery Additional Past Surgical History / Comment(s): hiatal hernia repair, rt knee knott rgery Past Anesthesia/Blood Transfusion Reactions: No Reported Reaction Additional Past Anesthesia/Blood Transfusion Reaction / Comment(s): no hx blood transfusions Past Psychological History: PTSD Additional Psychological History / Comment(s): follows Counselor [facility] Smoking Status: Never smoker Past Alcohol Use History: Abuse, Daily, Heavy Additional Past Alcohol Use History / Comment(s): drinks four to five 24 ounces per day approx. Past Drug Use History: None Reported - Past Family History Father Family Medical History: Cancer, COPD, Hyperlipidemia, Hypertension Mother Family Medical History: Rheumatoid Arthritis (RA) Additional Family Medical History / Comment(s): Diverticulitis Medications and Allergies Home Medications Medication Instructions Recorded Confirmed Type Omeprazole 40 mg PO DAILY #30 capsule. 05/13/21 05/01/22 Rx cloNIDine HCL [Catapres] 0.1 mg PO BID PRN 05/01/22 05/01/22 History Allergies Allergy/AdvReac Type Severity Reaction Status Date / Time No Known Allergies Allergy Verified 05/01/22 08:40 Physical Exam Vitals: Vital Signs Temp Pulse Pulse Resp BP BP Pulse Ox 05/01/22 19:21 98.8 F 81 16 118/72 96 05/01/22 16:52 98.6 F 81 15 120/73 96 05/01/22 15:46 89 18 113/67 98 05/01/22 12:00 80 20 105/71 05/01/22 10:00 76 18 106/70 05/01/22 09:00 73 18 150/75 05/01/22 07:20 99.2 F 73 18 123/76 95 05/01/22 06:00 58 L 16 103/58 05/01/22 05:47 71 16 103/58 05/01/22 03:00 73 16 104/71 04/30/22 22:32 97.6 F 90 16 146/95 97 Intake and Output 05/01/22 05/01/22 05/01/22 06:59 14:59 22:59 Intake Total 100 Balance 100 Intake: Intake, IV Titration 100 Amount Dextrose 5%-0.45% NaCl 1, 100 000 ml @ 75 mls/hr IV . [id number] [facility] Rx#:[id number] Other: Voiding Method Toilet # Voids 1 Weight 85.9 kg General: well nourished, well developed, NAD. Vitals reviewed Eyes: PERRL, EOMI, conjunctiva normal HENT: normocephalic, mucus membranes moist Neck: supple, no JVD Lungs: normal respiratory effort, no wheezes or rales CV: Regular rate and rhythm, no murmur. Peripheral pulses 2+ Abdomen: soft, nondistended, no organomegaly. tenerness throughout Lymph: no cervical or axillary LAD Skin: warm and dry. Neuro: A&Ox3, normal mood and affect Results CBC & Chem 7: 04/30/22 23:04 04/30/22 23:04 Labs: Abnormal Lab Results - Last 24 Hours (Table) 04/30/22 04/30/22 05/01/22 Range/Units 23:04 23:04 05:11 MCV 107.0 H (80.0-100.0) fL Plt Count 101 L (150-450) k/uL Carbon Dioxide 14 L (22-30) mmol/L BUN 6 L (9-20) mg/dL Creatinine 0.61 L (0.66-1.25) mg/dL Glucose 62 L (74-99) mg/dL POC Glucose (mg/dL) 63 L (70-110) mg/dL Total Bilirubin 1.4 H (0.2-1.3) mg/dL AST 378 H (17-59) U/L ALT 145 H (4-49) U/L Alkaline Phosphatase 167 H (38-126) U/L Lipase 1448 H (23-300) U/L Serum Alcohol 331 H* mg/dL 05/01/22 Range/Units 05:46 MCV (80.0-100.0) fL Plt Count (150-450) k/uL Carbon Dioxide (22-30) mmol/L BUN (9-20) mg/dL Creatinine (0.66-1.25) mg/dL Glucose (74-99) mg/dL POC Glucose (mg/dL) 162 H (70-110) mg/dL Total Bilirubin (0.2-1.3) mg/dL AST (17-59) U/L ALT (4-49) U/L Alkaline Phosphatase (38-126) U/L Lipase (23-300) U/L Serum Alcohol mg/dL Thrombosis Risk Factor Assmnt - Choose All That Apply Any of the Below Risk Factors Present?: Yes Each Factor Represents 1 point: Age 41-60 years Other Risk Factors: No Other congenital or acquired thrombophilia - If yes, enter type in comment: No Thrombosis Risk Factor Assessment Total Risk Factor Score: 1 Thrombosis Risk Factor Assessment Level: Low Risk Assessment and Plan Plan: 1. Acute pancreatitis. Admit, start IV fluids, NPO. IV protonix bid 2. Alcoholism and alcohol withdrawal. Extensively counseled on risks of continued use and cessation counseling. [place] protocol 3. Insomnia. Trazodone
[2022-05-02] MEDS: SODIUM CHLORIDE 0.9% 1,000 ML IV SCH (01:13)
[2022-05-02] MEDS: LORazepam 2 MG/ML INJ IV PRN (01:14)
[2022-05-02] MEDS: MULTIVITAMINS, THERA 1 EACH TAB PO SCH (07:16)
[2022-05-02] MEDS: PANTOPRAZOLE 40 MG/10 ML VIAL IV SCH (07:16)
[2022-05-02] MEDS: THIAMINE 100 MG TAB PO SCH ×2 (07:16→16:35)
[2022-05-02 09:15] LABS: African American GFR (CKD) 129.4 (60.0-200.0); BUN/Creat Ratio 10.67 Ratio (12.00-20.00); Blood Urea Nitrogen 6.4 mg/dL (9.0-27.0); Calcium 8.1 mg/dL (8.7-10.3); Non-African American GFR(CKD) 111.6 (60.0-200.0); Potassium 3.5 mmol/L (3.5-5.5)
[2022-05-02 10:53] LABS: Basophils # (A) 0.03 X 10*3/uL (0.00-0.10); Basophils % (A) 1.2 %; Eosinophils # (A) 0.01 X 10*3/uL (0.04-0.35); Eosinophils % (A) 0.4 %; HCT 37.2 % (39.6-50.0); HGB 12.2 g/dL (13.0-17.0); Immature Grans, Automated 0.4 %; Lymphocytes # (A) 0.53 X 10*3/uL (0.90-5.00); Lymphocytes % (A) 20.6 %; MCH 33.2 pg (27.0-32.0); MCHC 32.8 g/dL (32.0-37.0); MCV 101.4 fL (80.0-97.0); Mean Platelet Volume 11.9 fL (9.5-12.2); Monocytes # (A) 0.43 X 10*3/uL (0.20-1.00); Monocytes % (A) 16.7 %; NRBC Per 100 WBC 0 /100 WBCS (0.0-0.0); Neutrophils # (A) 1.56 X 10*3/uL (1.80-7.70); Neutrophils % (A) 60.7 %; Platelet Count 67 X 10*3/uL (140-440); RBC 3.67 X 10*6/uL (4.40-5.60); RDW 14.5 % (11.5-14.5); WBC 2.57 X 10*3/uL (4.50-10.00)
[2022-05-02 10:54] LABS: Immature Platelet Fraction 10.7 % (1.1-6.1); RBC Morphology NORMAL
[2022-05-02] MEDS: DEXTROSE 5%-0.45% NACL 1,000 ML IV SCH ×2 (11:18→23:15)
[2022-05-02 20:38] VITALS: RESP 18
[2022-05-02] MEDS ORDERED: traZODone HCL 100 MG TAB PO SCH (21:00)
[2022-05-03 04:37] VITALS: BP 109/71; PULSE 98; TEMP 98.5
[2022-05-03] MEDS: THIAMINE 100 MG TAB PO SCH (07:54)
[2022-05-03] MEDS: PANTOPRAZOLE 40 MG/10 ML VIAL IV SCH (07:54)
[2022-05-03] MEDS: MULTIVITAMINS, THERA 1 EACH TAB PO SCH (07:54)
--- NOTE | 2022-05-03 08:30 | P.PN ---
Subjective Progress Note Date: 05/02/22 He is feeling improved today, less abdominal pain. complains of withdrawal symptoms including diaphoresis, insomnia. On CIWA. Objective - Vital Signs Vital signs: Vital Signs Temp 98.5 F 05/03/22 04:35 Pulse 98 05/03/22 04:35 Resp 18 05/03/22 04:35 BP 109/71 05/03/22 04:35 Pulse Ox 96 05/03/22 04:35 FiO2 Intake & Output 05/02/22 05/03/22 05/03/22 18:59 06:59 18:59 Intake Total 2100 450 Balance 2100 450 Intake: Intake, IV Titration 900 450 Amount Dextrose 5%-0.45% NaCl 1, 900 450 000 ml @ 75 mls/hr IV . [id number] [facility] Rx#:[id number] Oral 1200 Other: Voiding Method Toilet - Exam Gen: well developed male in NAD CV: RRR Lungs: CTAB Abd: soft, epigastric tenderness - Labs CBC & Chem 7: 05/02/22 03:45 05/02/22 03:45 Labs: Abnormal Lab Results - Last 24 Hours (Table) 05/02/22 05/02/22 Range/Units 03:45 03:45 WBC 2.57 L (4.50-10.00) X 10*3/uL RBC 3.67 L (4.40-5.60) X 10*6/uL Hgb 12.2 L (13.0-17.0) g/dL Hct 37.2 L (39.6-50.0) % MCV 101.4 H (80.0-97.0) fL MCH 33.2 H (27.0-32.0) pg Plt Count 67 L (140-440) X 10*3/uL Plt Count Comment DECREASED A Neutrophils # 1.56 L (1.80-7.70) X 10*3/uL Lymphocytes # 0.53 L (0.90-5.00) X 10*3/uL Eosinophils # 0.01 L (0.04-0.35) X 10*3/uL Immature Plt Fraction 10.7 H (1.1-6.1) % Sodium 133 L (135-145) mmol/L Chloride 95 L (96-109) mmol/L BUN 6.4 L (9.0-27.0) mg/dL BUN/Creatinine Ratio 10.67 L (12.00-20.00) Ratio Calcium 8.1 L (8.7-10.3) mg/dL Assessment and Plan Plan: Continue protonix, advance to low fat diet. CIWA
--- NOTE | 2022-05-04 15:09 | P.DS ---
Providers Date of admission: 05/01/22 02:04 Expected date of discharge: 05/03/22 Attending physician: Devin Bauman MD Primary care physician: Devin Bauman MD Hospital Course: Final Diagnoses: Acute pancreatitis Alcoholism with alcohol withdrawal Insomnia Hospital course:Thom Lindsey is a 56 yo M with PMH of alcoholism, GERD, insomnia, major depression who presented to the ED complaining of acute onset abdominal pain. He has been seen multiple times in the hospital for chest pain associated with his alcohol use but states last night he woke up out of sleep feeling a severe pain in his deep chest. He denies any associated shortness of breath, radiation, diaphoresis. He has been compliant with his protonix. He notes he continues to drink "about a pint" of alcohol daily. On presentation vitals stable, trop negative, EKG NSR, lipase 1500, alcohol 330, AST 378. CT abd/pelvis no acute process. He is feeling improved today, less abdominal pain. complains of withdrawal symptoms including diaphoresis, insomnia. On CIWA. Maintain IV CIWA protocol, fluid hydration and PPI . Tolerating diet advancement to low-fat, denies nausea, vomiting or diarrhea. Denies abdominal pain. Significant clinical improvement. Patient will be discharged home today in a stable condition with guarded prognosis.Extensively counseled on risks of continued use and cessation. The impression and plan of care has been dictated as directed. .: I performed a history and examination of this patient, discussed the same with the dictator. I agree with the dictator's note ,documented as a scribe. Any additional findings or plans will be noted. Patient Condition at Discharge: Stable Plan - Discharge Summary Discharge Rx Participant: No New Discharge Prescriptions: New Thiamine [Vitamin B-1] 100 mg PO DAILY tab Continue Omeprazole 40 mg PO DAILY #30 capsule. cloNIDine HCL [Catapres] 0.1 mg PO BID PRN PRN Reason: Blood Pressure - High Discharge Medication List Omeprazole 40 mg PO DAILY #30 capsule. 05/13/21 [Rx] cloNIDine HCL [Catapres] 0.1 mg PO BID PRN 05/01/22 [History] Thiamine [Vitamin B-1] 100 mg PO DAILY tab 05/03/22 [Rx] Follow up Appointment(s)/Referral(s): Devin Bauman MD [Primary Care Provider] - 05/05/22 9:00 am (Doctors appointment is in the [place] office, with TERESA Diaz) Patient Instructions/Handouts: Abuse of Alcohol (DC) Activity/Diet/Wound Care/Special Instructions: no etoh Discharge/Stand Alone Forms: AA Meetings [facility] Discharge Disposition: HOME SELF-CARE
== END 2022-05-03 12:40 | disposition home or self-care (01) | DRG 439 ==
LOC: EC 22:24 → 3SCARD 05-01 02:04 → 5NMEDONC 05-01 09:26
PROVIDERS: ADMIT Family Medicine; ATTEND Family Medicine
DX: K85.90 Acute pancreatitis without necrosis or infection, unspecified (principal); F10.239 Alcohol dependence with withdrawal, unspecified; E16.2 Hypoglycemia, unspecified; F43.10 Post-traumatic stress disorder, unspecified; G47.00 Insomnia, unspecified; I48.91 Unspecified atrial fibrillation; K21.9 Gastro-esophageal reflux disease without esophagitis; K44.9 Diaphragmatic hernia without obstruction or gangrene; F10.229 Alcohol dependence with intoxication, unspecified; Y90.8 Blood alcohol level of 240 mg/100 ml or more; F32.9 Major depressive disorder, single episode, unspecified; Z79.899 Other long term (current) drug therapy; Z28.310 Unvaccinated for COVID-19; Z82.49 Family history of ischemic heart disease and other diseases of the circulatory system; Z80.9 Family history of malignant neoplasm, unspecified
CPT/HCPCS: 36415; 71046; 74177; 80048; 80053; 80320; 83690; 83735; 84484; 85025; 85610; 85730; 93005; 94760; 96361; 96374; 96375; 96376; 99285

== ENCOUNTER 2022-08-12 16:05 | Inpatient (IN) | payer OTHER ==
--- NOTE | 2022-08-12 16:27 | ED ---
Chest Pain HPI - General Stated Complaint: Chest Pain Time Seen by Provider: 08/12/22 16:10 Source: patient, RN notes reviewed Mode of arrival: EMS Limitations: no limitations - History of Present Illness Initial Comments: 56-year-old male who was brought in by EMS with complaints of chest pain and pressure for past couple hours intermittently also has a history of A. fib was n oted have a heart rate between 70 and 140 bpm. He states when he hadn't chest pain was midsternal was 5-6/10 severity he was given 4 baby aspirin's and route he currently states his pain is 0/10. He does admit to drinking a lot of alcohol last night he has apparently scheduled to [facility] [place] for treatment of alcohol abuse. He was noted to be very shaky per paramedics. No fall reported no fevers chills or sweats. No other complaints or modifying factors MD Complaint: chest pain, other - Related Data Home Medications Medication Instructions Recorded Confirmed cloNIDine HCL [Catapres] 0.1 mg PO BID PRN 05/01/22 05/01/22 Previous Rx's Medication Instructions Recorded Omeprazole 40 mg PO DAILY #30 capsule. 05/13/21 Thiamine [Vitamin B-1] 100 mg PO DAILY tab 05/03/22 Allergies Allergy/AdvReac Type Severity Reaction Status Date / Time No Known Allergies Allergy Verified 05/01/22 08:40 Review of Systems ROS Statement: Those systems with pertinent positive or pertinent negative responses have been documented in the HPI. ROS Other: All systems not noted in ROS Statement are negative. EKG Findings - EKG Results: EKG: interpreted by ERMD (EKG interpreted by me shows a sinus tachycardia of 114 [place] interval 169 QRS duration 86 QT since QTC 348/416 low-voltage artifact present no acute ST-T wave changes) Past Medical History Past Medical History: Atrial Fibrillation, GERD/Reflux Additional Past Medical History / Comment(s): hiatal hernia,hypoglycemia, Alcohol abuse History of Any Multi-Drug Resistant Organisms: None Reported Past Surgical History: Hernia Repair, Orthopedic Surgery Additional Past Surgical History / Comment(s): hiatal hernia repair, rt knee surgery Past Anesthesia/Blood Transfusion Reactions: No Reported Reaction Additional Past Anesthesia/Blood Transfusion Reaction / Comment(s): no hx blood transfusions Past Psychological History: PTSD Smoking Status: Never smoker Past Alcohol Use History: Abuse, Daily, Heavy Past Drug Use History: None Reported - Past Family History Father Family Medical History: Cancer, COPD, Hyperlipidemia, Hypertension Mother Family Medical History: Rheumatoid Arthritis (RA) Additional Family Medical History / Comment(s): Diverticulitis General Exam - General Exam Comments Initial Comments: This is a well-developed well-nourished awake alert oriented 4 male he does demonstrate tremors. Limitations: no limitations General appearance: alert, anxious Head exam: Present: atraumatic, normocephalic, normal inspection Eye exam: Present: normal appearance, PERRL, EOMI. Absent: scleral icterus, conjunctival injection, periorbital swelling ENT exam: Present: normal exam, mucous membranes moist Neck exam: Present: normal inspection, full ROM, other (No stridor JVD or bruits). Absent: tenderness, meningismus, lymphadenopathy Respiratory exam: Present: normal lung sounds bilaterally. Absent: respiratory distress, wheezes, rales, rhonchi, stridor Cardiovascular Exam: Present: normal rhythm, tachycardia, normal heart sounds. Absent: systolic murmur, diastolic murmur, rubs, gallop, clicks GI/Abdominal exam: Present: soft, normal bowel sounds. Absent: distended, tenderness, guarding, rebound, rigid Extremities exam: Present: normal inspection, full ROM, normal capillary refill. Absent: tenderness, pedal edema, joint swelling, calf tenderness Back exam: Present: normal inspection Neurological exam: Present: alert, oriented X3, CN II-XII intact Psychiatric exam: Present: normal affect, normal mood Skin exam: Present: warm, dry, intact, normal color. Absent: rash Course Vital Signs 08/12/22 08/12/22 08/12/22 16:10 16:16 18:06 Temperature 98 F Pulse Rate 115 H 100 100 Respiratory 22 20 18 Rate Blood Pressure 130/89 130/89 114/80 O2 Sat by Pulse 96 95 97 Oximetry 08/12/22 20:00 Temperature Pulse Rate 98 Respiratory 16 Rate Blood Pressure 150/86 O2 Sat by Pulse 98 Oximetry Chest Pain MDM - MDM Imaging reviewed as well as reports I did see any acute processes on CT or x- rays. Patient does demonstrate evidence of hypomagnesemia alcohol withdrawal elevated d-dimer but no evidence of PE. He will be admitted I did discuss case with Dr. Maldonado covering Dr. Bauman. He will be evaluated also for his chest pain. Disposition Clinical Impression: Chest pain, Hypomagnesemia, Alcohol withdrawal Disposition: ADMITTED IP TO THIS HOSP Condition: Stable Referrals: Devin Bauman MD [Primary Care Provider] - 1-2 days Decision Date: 08/12/22 Decision Time: 20:10
[2022-08-12 16:36] LABS: Basophils % (A) 1 %; Eosinophils % (A) 0 %; HCT 44.3 % (39.0-53.0); HGB 15.1 gm/dL (13.0-17.5); Lymphocytes # (A) 0.5 k/uL (1.0-4.8); Lymphocytes % (A) 8 %; MCH 34.5 pg (25.0-35.0); MCHC 34.2 g/dL (31.0-37.0); MCV 100.7 fL (80.0-100.0); Mean Platelet Volume 8.6; Monocytes # (A) 0.4 k/uL (0-1.0); Monocytes % (A) 7 %; Neutrophils # (A) 4.7 k/uL (1.3-7.7); Neutrophils % (A) 83 %; Platelet Count 162 k/uL (150-450); RBC 4.39 m/uL (4.30-5.90); RDW 13.3 % (11.5-15.5); WBC 5.7 k/uL (3.8-10.6)
[2022-08-12] MEDS ORDERED: LORazepam 2 MG/ML INJ IV STA (16:39)
[2022-08-12 16:49] LABS: Partial Thromboplastin Time 23.2 sec (22.0-30.0); Prothrombin Time 11.1 sec (9.0-12.0)
[2022-08-12 16:54] LABS: ALT 79 U/L (4-49); AST 289 U/L (17-59); African American GFR (CKD) >90 (>60 ml/min/1.73 sqM); Albumin 3.9 g/dL (3.5-5.0); Alcohol <10 mg/dL; Alkaline Phosphatase 236 U/L (38-126); Anion Gap 15 mmol/L; Blood Urea Nitrogen 3 mg/dL (9-20); Calcium 8.5 mg/dL (8.4-10.2); Carbon Dioxide 25 mmol/L (22-30); Chloride 99 mmol/L (98-107); Glucose 162 mg/dL (74-99); Lipase 632 U/L (23-300); Magnesium 1.2 mg/dL (1.6-2.3); Non-African American GFR(CKD) >90 (>60 ml/min/1.73 sqM); Potassium 3.6 mmol/L (3.5-5.1); Sodium 139 mmol/L (137-145); Total Bilirubin 1.2 mg/dL (0.2-1.3); Total Protein 6.8 g/dL (6.3-8.2)
--- NOTE | 2022-08-12 17:22 | XR ---
EXAMINATION TYPE: XR chest 2V DATE OF EXAM: 08/12/2022 COMPARISON: 04/30/2022 HISTORY: Chest pain TECHNIQUE: Frontal and lateral views of the chest are obtained. FINDINGS: There is no focal air space opacity, pleural effusion, or pneumothorax seen. The cardiac silhouette size is within normal limits. The osseous structures are intact. IMPRESSION: No acute cardiopulmonary process.
[2022-08-12] MEDS: MAGNESIUM SULFATE-D5W PMX 1 GM in DEXTROSE/WATER 1 100ML.BAG IVPB SCH ×2 (18:06→20:25)
--- NOTE | 2022-08-12 20:07 | CT ---
EXAMINATION TYPE: CT angio chest CT DLP: 385.9 mGycm, Automated exposure control for dose reduction was used. DATE OF EXAM: 08/12/2022 8:00 PM COMPARISON: Chest radiograph from same day. . CLINICAL INDICATION:Male, 56 years old with history of PE suspected; chest pain. poss PE suspected. TECHNIQUE/CONTRAST: CTA scan of the thorax is performed with IV Contrast, patient injected with 125 mL of Isovue 370, pul monary embolism protocol. MIP images are created and reviewed. FINDINGS: Pulmonary Artery: There is no evidence for a filling defect within the pulmonary vasculature to sugge st acute pulmonary embolism. The pulmonary artery is of normal size. Lungs/Pleura: Posterior dependent subsegmental atelectasis is noted. No focal airspace consolidation. Airway: Large airways are patent. Heart: Heart is within normal limits for size.. Vasculature: No evidence of aortic aneurysm. Mediastinum: No gross evidence of adenopathy. Small hiatal hernia. Musculoskeletal: Mild degenerative disc disease changes are present throughout the thoracolumbar spin e. Soft Tissues: Unremarkable. Lower neck: No significant findings. Upper Abdomen: Diffuse low-attenuation to the liver parenchyma.. IMPRESSION: 1. No evidence of pulmonary embolism or acute cardiopulmonary process. 2. Hepatic steatosis. 3. Small hiatal hernia.
[2022-08-12] MEDS ORDERED: NALOXONE 0.4 MG/ML 1 ML VIAL IV PRN (20:59)
[2022-08-12] MEDS ORDERED: LORazepam 1 MG TAB PO PRN (21:00)
[2022-08-12] MEDS ORDERED: THIAMINE 100 MG/ML 2 ML VIAL IM STA (21:00)
[2022-08-12] MEDS: LORazepam 1 MG TAB PO PRN (21:45)
[2022-08-12] MEDS: SODIUM CHLORIDE 0.9% 1,000 ML IV SCH (22:28)
[2022-08-13] MEDS: LORazepam 1 MG TAB PO PRN ×3 (04:17→19:04)
[2022-08-13 06:21] LABS: Glucose,Whole Blood 102 mg/dL (70-110)
[2022-08-13] MEDS: PANTOPRAZOLE 40 MG/10 ML VIAL IV SCH (08:12)
[2022-08-13] MEDS ORDERED: THIAMINE 100 MG TAB PO SCH (09:00)
[2022-08-13] MEDS: SODIUM CHLORIDE 0.9% 1,000 ML IV SCH ×2 (11:38→23:40)
[2022-08-13 12:09] LABS: Glucose,Whole Blood 105 mg/dL (70-110)
[2022-08-13 16:54] LABS: Glucose,Whole Blood 105 mg/dL (70-110)
--- NOTE | 2022-08-14 01:45 | P.HPIM ---
History of Present Illness H&P Date: 08/13/22 Chief Complaint: Shakiness Patient is a 56-year-old male with a known history of GERD, history of paroxysmal atrial fibrillation not on anticoagulation, severe alcohol abuse, hiatal hernia, PTSD and other medical problems presents to ER with complaints of generalized weakness, chest pressure and sweating couple hours prior to admission. Symptoms started yesterday morning. Patient states that he did drink heavily night before. Chest pain is mainly mid sternal 5 out of 10 in severity no radiation of the pain. No associated nausea or vomiting. No headache or dizziness or lightheadedness. No fever no chills. No cough or sputum production. Currently patient denied any chest pain or shortness of breath. Patient is scheduled to enter [facility] for treatment of alcohol abuse. Chest x-ray showed no acute cardio pulmonary process. EKG showed sinus rhythm with sinus tachycardia CT angiogram of the chest showed no evidence of PE. Hepatic steatosis. Small hiatal hernia. Laboratory showed WBC 5.7 hemoglobin 9.1 and platelets 162 D-dimer is 2.09 BUN 3 and creatinine 0.49 and blood pressure is 162 Magnesium 1.2 AST 289 ALT 17 alk phos 236 and troponin 3 negative Lipase 7632 and TSH is 2.2; is less than 10 Review of Systems Constitutional: Patient denies any fever or chills . No generalized weakness or weight loss. Abdomen: Patient denied nausea vomiting and diarrhea and abdominal pain. Epi gastric abdominal pain. Cardiovascular: Patient denies any chest pain or short of breath no palpitat ions. Respiratory: patient denied any cough is from production. No shortness of breath Neurologic: Patient denied any numbness or tingling headache. Musculoskeletal: Patient denies any complaints of joint swelling or deformity. Skin: Negative Psychiatric: Anxious and shakiness. Endocrine: No heat or cold intolerance. No recent weight gain. Genitourinary: No dysuria or hematuria. All other 14 point ROS negative except the above Past Medical History Past Medical History: Atrial Fibrillation, GERD/Reflux Additional Past Medical History / Comment(s): hiatal hernia,hypoglycemia, Alcohol abuse History of Any Multi-Drug Resistant Organisms: None Reported Past Surgical History: Hernia Repair, Orthopedic Surgery Additional Past Surgical History / Comment(s): hiatal hernia repair, rt knee surgery Past Anesthesia/Blood Transfusion Reactions: No Reported Reaction Additional Past Anesthesia/Blood Transfusion Reaction / Comment(s): no hx blood transfusions Past Psychological History: PTSD Additional Psychological History / Comment(s): follows [employer] [facility] Smoking Status: Never smoker Past Alcohol Use History: Abuse, Daily, Heavy Additional Past Alcohol Use History / Comment(s): drinks four to five 24 ounces per day approx. Past Drug Use History: None Reported - Past Family History Father Family Medical History: Cancer, COPD, Hyperlipidemia, Hypertension Mother Family Medical History: Rheumatoid Arthritis (RA) Additional Family Medical History / Comment(s): Diverticulitis Medications and Allergies Home Medications Medication Instructions Recorded Confirmed Type cloNIDine HCL [Catapres] 0.1 mg PO BID PRN 05/01/22 08/12/22 History Meloxicam [Mobic] 15 mg PO DAILY 08/12/22 08/12/22 History Omeprazole 40 mg PO BID 08/12/22 08/12/22 History Allergies Allergy/AdvReac Type Severity Reaction Status Date / Time No Known Allergies Allergy Verified 08/12/22 21:30 Physical Exam Vitals: Vital Signs Temp Pulse Pulse Resp BP BP Pulse Ox 08/13/22 04:00 99.0 F 87 16 116/64 95 08/13/22 01:07 EST 16 08/13/22 00:00 98.1 F 90 16 104/65 96 08/12/22 21:58 97.9 F 98 18 123/77 99 08/12/22 21:23 94 16 130/85 98 08/12/22 20:00 98 16 150/86 98 08/12/22 18:06 100 18 114/80 97 08/12/22 16:16 100 20 130/89 95 08/12/22 16:10 98 F 115 H 22 130/89 96 Intake and Output 08/12/22 08/13/22 08/13/22 23:59 06:59 14:59 Other: # Voids Weight PHYSICAL EXAMINATION: Patient is lying in the bed comfortably, no acute distress, awake alert and oriented. Generalized shakiness. HEENT: Normocephalic. Neck is supple. Pupils reactive. Nostrils clear. Oral cavity is moist. Neck reveals no JVD, carotid bruits, or thyromegaly. CHEST EXAMINATION: Trachea is central. Symmetrical expansion. Lung duran clear to auscultation and percussion. CARDIAC: Normal S1, S2 with no gallops. No murmurs ABDOMEN: Soft. Bowel sounds normal. No organomegaly. No abdominal bruits. Extremities: reveal no edema. No clubbing or cyanosis Neurologically awake, alert, oriented x3 with well-coordinated movements. No focal deficits noted Skin: No rash or skin lesions. Psychiatric: Coperative. Nonsuicidal, anxious. Musculoskeletal: No joint swelling or deformity. Normal range of motion. Results CBC & Chem 7: 08/14/22 04:30 08/14/22 04:30 Labs: Abnormal Lab Results - Last 24 Hours (Table) 08/12/22 08/12/22 08/12/22 Range/Units 16:19 16:19 16:19 MCV 100.7 H (80.0-100.0) fL Lymphocytes # 0.5 L (1.0-4.8) k/uL D-Dimer 2.09 H (<0.60) mg/L FEU BUN 3 L (9-20) mg/dL Creatinine 0.49 L (0.66-1.25) mg/dL Glucose 162 H (74-99) mg/dL Magnesium 1.2 L (1.6-2.3) mg/dL AST 289 H (17-59) U/L ALT 79 H (4-49) U/L Alkaline Phosphatase 236 H (38-126) U/L Lipase 632 H (23-300) U/L Thrombosis Risk Factor Assmnt - DVT/VTE Prophylaxis DVT/VTE Prophylaxis: Pharmacologic Prophylaxis ordered - Choose All That Apply Any of the Below Risk Factors Present?: Yes Each Factor Represents 1 point: Age 41-60 years, Obesity (BMI >25) Other Risk Factors: No Other congenital or acquired thrombophilia - If yes, enter type in comment: No Thrombosis Risk Factor Assessment Total Risk Factor Score: 2 Thrombosis Risk Factor Assessment Level: Low Risk Assessment and Plan Assessment: Acute alcohol withdrawal symptoms Elevated liver enzymes likely due to alcoholic hepatitis Epigastric abdominal pain likely alcoholic gastritis Mild alcoholic pancreatitis Severe hypomagnesemia Heavy alcohol abuse Elevated d-dimer level with no evidence of PE on CTA chest Hepatic steatosis Small hiatal hernia GERD Paroxysmal atrial fibrillation not on any anticoagulation at home. PTSD DVT prophylaxis with heparin subcu Plan: Patient will be continued on gentle IV hydration and telemetry monitoring. Serial EKG and troponin 3. Continue to monitor for alcohol withdrawal symptoms and withdrawal protocol. Continue with PPI and replace magnesium and repeat level. Continue the home medications and follow closely. Alcohol abstinence has been counseled extensively. Time with Patient: Greater than 30
[2022-08-14] MEDS: LORazepam 1 MG TAB PO PRN (08:19)
[2022-08-14] MEDS: PANTOPRAZOLE 40 MG/10 ML VIAL IV SCH (08:19)
[2022-08-14 08:36] VITALS: BP 126/78; PULSE 75; RESP 17; TEMP 98
[2022-08-14 08:41] LABS: Basophils # (A) 0.04 X 10*3/uL (0.00-0.10); Basophils % (A) 0.7 %; Eosinophils # (A) 0.06 X 10*3/uL (0.04-0.35); Eosinophils % (A) 1.1 %; HCT 37.4 % (39.6-50.0); HGB 12.5 g/dL (13.0-17.0); Immature Grans, Automated 0.5 %; Lymphocytes # (A) 0.47 X 10*3/uL (0.90-5.00); Lymphocytes % (A) 8.5 %; MCH 33.8 pg (27.0-32.0); MCHC 33.4 g/dL (32.0-37.0); MCV 101.1 fL (80.0-97.0); Monocytes # (A) 0.43 X 10*3/uL (0.20-1.00); Monocytes % (A) 7.7 %; NRBC Per 100 WBC 0 /100 WBCS (0.0-0.0); Neutrophils # (A) 4.53 X 10*3/uL (1.80-7.70); Neutrophils % (A) 81.5 %; Platelet Count 136 X 10*3/uL (140-440); RDW 14.5 % (11.5-14.5); WBC 5.56 X 10*3/uL (4.50-10.00)
[2022-08-14 09:08] LABS: African American GFR (CKD) 129.4 (60.0-200.0); Albumin 3.2 g/dL (3.8-4.9); Albumin/Globulin Ratio 1.52 (1.60-3.17); Anion Gap 9.2 mmol/L (10.00-18.00); BUN/Creat Ratio 8.67 Ratio (12.00-20.00); Blood Urea Nitrogen 5.2 mg/dL (9.0-27.0); Calcium 7.8 mg/dL (8.7-10.3); Carbon Dioxide 23.8 mmol/L (20.0-27.5); Globulin 2.1 g/dL (1.6-3.3); Non-African American GFR(CKD) 111.6 (60.0-200.0); Potassium 3.5 mmol/L (3.5-5.5); Total Bilirubin 1.6 mg/dL (0.30-1.20); Total Protein 5.3 g/dL (6.2-8.2)
--- NOTE | 2022-08-14 10:59 | P.DS ---
Providers Date of admission: 08/12/22 20:59 Expected date of discharge: 08/14/22 Attending physician: Chiquita Maldonado Primary care physician: Devin Bauman MD Hospital Course: Patient left AMA before being seen. Plan - Discharge Summary Discharge Rx Participant: No New Discharge Prescriptions: No Action Meloxicam [Mobic] 15 mg PO DAILY cloNIDine HCL [Catapres] 0.1 mg PO BID PRN PRN Reason: Blood Pressure - High Omeprazole 40 mg PO BID Discharge Medication List cloNIDine HCL [Catapres] 0.1 mg PO BID PRN 05/01/22 [History] Meloxicam [Mobic] 15 mg PO DAILY 08/12/22 [History] Omeprazole 40 mg PO BID 08/12/22 [History] Follow up Appointment(s)/Referral(s): Devin Bauman MD [Primary Care Provider] - 1-2 days
[2022-08-15] MEDS ORDERED: PANTOPRAZOLE 40 MG TABLET PO SCH (07:30)
== END 2022-08-14 09:25 | disposition left against medical advice (07) | DRG 894 ==
LOC: EC 16:05 → 3SCARD 20:59 → 4SSUR 08-14 01:06
PROVIDERS: ADMIT Internal Medicine; ATTEND Internal Medicine
DX: F10.239 Alcohol dependence with withdrawal, unspecified (principal); K85.20 Alcohol induced acute pancreatitis without necrosis or infection; Z71.41 Alcohol abuse counseling and surveillance of alcoholic; Z53.29 Procedure and treatment not carried out because of patient's decision for other reasons; R74.01 Elevation of levels of liver transaminase levels; E83.42 Hypomagnesemia; Z20.822 Contact with and (suspected) exposure to COVID-19; R07.9 Chest pain, unspecified; R00.0 Tachycardia, unspecified; F43.10 Post-traumatic stress disorder, unspecified; I48.0 Paroxysmal atrial fibrillation; K21.9 Gastro-esophageal reflux disease without esophagitis; K29.20 Alcoholic gastritis without bleeding; K44.9 Diaphragmatic hernia without obstruction or gangrene; K70.10 Alcoholic hepatitis without ascites; Z79.1 Long term (current) use of non-steroidal anti-inflammatories (NSAID); Z79.899 Other long term (current) drug therapy; Z82.5 Family history of asthma and other chronic lower respiratory diseases; Z87.19 Personal history of other diseases of the digestive system
CPT/HCPCS: 36415; 71046; 71275; 80053; 80320; 83690; 83735; 83880; 84443; 84484; 85025; 85379; 85610; 85730; 87635; 93005; 96365; 96366; 96372; 96375; 99285

== ENCOUNTER 2023-01-05 10:42 | Emergency (ER) | payer OTHER ==
[2023-01-05] MEDS ORDERED: SODIUM CHLORIDE 0.9% 500 ML 500 ML IV STA (10:48)
[2023-01-05] MEDS ORDERED: OCTREOTIDE 500 MCG in SODIUM CHLORIDE 0.9% 250 ML IV ONE (10:54)
[2023-01-05] MEDS ORDERED: OCTREOTIDE 200 MCG/ML 5 ML VIAL IVP STA (10:55)
[2023-01-05] MEDS ORDERED: PANTOPRAZOLE 40 MG/10 ML VIAL IVP STA (10:55)
--- NOTE | 2023-01-05 11:19 | ED ---
General Adult HPI - General Chief complaint: GI Bleed Stated complaint: weakness, coffee ground emesis Time Seen by Provider: 01/05/23 10:47 Source: patient, EMS Mode of arrival: EMS - History of Present Illness Initial comments: Dictation was produced using [employer] dictation software. please excuse any grammatical, word or spelling errors. Chief Complaint: 57-year-old male with history of cirrhosis presents to the emergency room for GI bleed History of Present Illness: Patient is 49-year-old male he has past medical history of cirrhotic liver disease. He states that he gets paracentesis regularly. Patient is a poor historian. According EMS there called by social sciences chair. Patient that with a friend. According to EMS patient has been having coffee-ground emesis and melanotic stool for the last 7 days. EMS reports that the patient lived was covered with this bloody material. Patient has any pain complaints. EMS reports that patient has low blood pressure with systolics between the 70s. they did see some bedbugs on the patient Platelets obtain oral eileen to mental status PHYSICAL EXAM: General Impression: Alert and oriented, lethargic, jaundiced, coffee-ground residue periorally HEENT: Normocephalic atraumatic, extra-ocular movements intact, pupils equal and reactive to light bilaterally, dry mucous membranes Cardiovascular: Heart regular rate and rhythm Chest: Able to complete full sentences, no retractions, no tachypnea Abdomen: Distended Musculoskeletal: We peripheral pulses, no peripheral edema Motor: no focal deficits noted Neurological: CN II-XII grossly intact, no focal motor or sensory deficits noted Skin: Jaundiced Rectal exam: Melanotic residue perianally ED course: 57-year-old male presents emergency department for massive GI bleed. Clinical presentation suspicious for hemorrhagic shock significant degenerative GI bleed in the cirrhotic patient. Patient had some bedbugs. He was seen to the decontamination room briefly before being placed in trauma bay #2. While in decontamination room he had large volume passage of melanotic stool. Patient's blood pressure initially upon arrival with systolic 90/58. Protonix octreotide 500 mL bolus was given. Patient hypothermic upon evaluation and hypotensive. Patient placed on a warming blanket. Moderate emergency department. Patient resuscitated with blood. Patient continued to have large volume coffee-ground emesis. Decision was made for control of airway. Endo tracheal intubation was performed successfully with medications. Right groin central venous catheter and arterial line was placed under ultrasound guidance. Orogastric tube was placed fiberoptically. Post procedure x-ray shows good placement of orogastric tube and ET tube. Patient continued to be resuscitated with blood. Did not give large boluses of fluid or pressors at the moment for permissive hypotension. Patient not requiring any vasopressors initially. Case discussed with [facility]. Spoke with Dr. Ailyn HENDERSON from [facility]. He requested that he be notified of patient's blood work before they will decide on transfer. Simultaneously I was in contact with [facility]. Discussed case with Dr. Rain who is agreeable with urinary ER transfer. Case was discussed in detail. Laboratory evaluation obtained. Leukocytosis 17.8 likely secondary to stress. Infections were considered patient is given ceftriaxone. Hemoglobin of 10.5. Pancytopenia of 97 which likely result of chronic cirrhosis. INR is 2.8. Metabolic panel shows elevated creatinine level 0.11. BUN of 84. Lactic acid doses of 5.9 with a multifactorial secondary to shock and liver disease. My EKG interpretation: Ventricular rate 95, sinus rhythm, IA interval 170, QRS 86, QTC 417. No IA prolongation, no QTC prolongation, no ST or T-wave changes noted. Overall, this EKG is unremarkable Was pt. sent in by a medical professional or institution (TERESA Garrett, BULL CHAIN OPERATOR, urgent care, hospital, or custodial...) When possible be specific @ -No Did you speak to anyone other than the patient for history (EMS, parent, family, police, friend...)? What history was obtained from this source @ -EMS Did you review nursing and triage notes (agree or disagree)? Why? @ -I reviewed and agree with nursing and triage notes Were old charts reviewed (outside hosp., previous admission, EMS record, old EKG, old radiological studies, urgent care reports/EKG's, custodial records)? Report findings @ -Prior discharge summary and charting was reviewed Differential Diagnosis (chest pain, altered mental status, abdominal pain women, abdominal pain men, vaginal bleeding, musculoskeletal, weakness, fever, dyspnea, syncope, headache, dizziness, GI bleed, back pain, seizure, CVA, palpatations, m ental health)? @ -Differential GI Bleed: Esophageal varices, aortoenteric fistula, Irina-Blair, gastritis, peptic ulcer disease, diverticulosis, inflammatory bowel disease, hemorrhoids, fissure, colitis, malignancy, Meckels diverticulum, this is not meant to be an all-inclusive list. EKG interpreted by me (3pts min.). @ -See above X-rays interpreted by me (1pt min.). @ -Intact - intact OG and endotracheal tube placement CT interpreted by me (1pt min.). @ -None done U/S interpreted by me (1pt. min.). @ -None done What testing was considered but not performed or refused? (CT, X-rays, U/S, labs)? Why? @ -None What meds were considered but not given or refused? Why? @ -None Did you discuss the management of the patient with other professionals (professionals i.e. , PA, BULL CHAIN OPERATOR, lab, RT, psych nurse, social sciences chair, oracle database administrator, teacher, emergency response officer, correctional case manager)? Give summary @ -Discussed with ER physician, Dr. Rain for urinary ER transfer Was smoking cessation discussed for >3mins.? @ -No Was critical care preformed (if so, how long)? @ -yes 78 minutes Were there social determinants of health that impacted care today? How? (Homelessness, low income, unemployed, alcoholism, drug addiction, transportatio n, low edu. Level, literacy, decrease access to med. care, group home, rehab)? @ -Social situation Was there de-escalation of care discussed even if they declined (Discuss DNR or withdrawal of care, Hospice)? DNR status @ -No What co-morbidities impacted this encounter? (DM, HTN, Smoking, COPD, CAD, Cancer, CVA, ARF, Chemo, Hep., AIDS, mental health diagnosis, sleep apnea, morbid obesity)? @ -History of cirrhosis Was patient admitted / discharged? Hospital course, mention meds given and route, prescriptions, significant lab abnormalities, going to OR and other pertinent info. @ -See above Undiagnosed new problem with uncertain prognosis? @ -No Drug Therapy requiring intensive monitoring for toxicity (Heparin, Nitro, Insulin, Cardizem)? @ -No Were any procedures done? @ -No Diagnosis/symptom? Acute, or Chronic, or Acute on Chronic? Uncomplicated (without systemic symptoms) or Complicated (systemic symptoms)? @ -1. Acute, complicated Massive GI bleed Side effects of treatment? @ -No Exacerbation, Progression, or Severe Exacerbation? @ -No Poses a threat to life or bodily function? How? (Chest pain, USA, [place], pneumonia, PE, COPD, DKA, ARF, appy, cholecystitis, CVA, Diverticulitis, Homicidal, Suicidal, threat to staff... and all critical care pts) @ -yes - Related Data Home Medications Medication Instructions Recorded Confirmed Omeprazole 40 mg PO BID 08/12/22 01/05/23 Furosemide [Lasix] 40 mg PO DAILY 12/08/22 01/05/23 Previous Rx's Medication Instructions Recorded Spironolactone [Aldactone] 50 mg PO BID #60 tab 12/15/22 rOPINIRole HCL [Requip] 0.25 mg PO HS #30 tab 12/15/22 Allergies Allergy/AdvReac Type Severity Reaction Status Date / Time No Known Allergies Allergy Verified 01/05/23 13:08 Review of Systems ROS Statement: Those systems with pertinent positive or pertinent negative responses have been documented in the HPI. ROS Other: All systems not noted in ROS Statement are negative. Past Medical History Past Medical History: Atrial Fibrillation, GERD/Reflux Additional Past Medical History / Comment(s): hiatal hernia,hypoglycemia, Alcohol abuse History of Any Multi-Drug Resistant Organisms: None Reported Past Surgical History: Hernia Repair, Orthopedic Surgery Additional Past Surgical History / Comment(s): hiatal hernia repair, rt knee surgery Past Anesthesia/Blood Transfusion Reactions: No Reported Reaction Additional Past Anesthesia/Blood Transfusion Reaction / Comment(s): no hx blood transfusions Past Psychological History: PTSD Smoking Status: Never smoker Past Alcohol Use History: Abuse, Daily, Heavy Past Drug Use History: None Reported - Past Family History Father Family Medical History: Cancer, COPD, Hyperlipidemia, Hypertension Mother Family Medical History: Rheumatoid Arthritis (RA) Additional Family Medical History / Comment(s): Diverticulitis Course Vital Signs 01/05/23 01/05/23 01/05/23 12:20 12:25 12:47 Temperature 84.4 F L 88.9 F L Pulse Rate 99 80 Respiratory 22 15 Rate Blood Pressure 61/49 50/30 Fraction of 100 Inspired Oxygen (FIO2) 01/05/23 12:53 Temperature Pulse Rate Respiratory Rate Blood Pressure Fraction of 100 Inspired Oxygen (FIO2) Procedures - Arterial Line No standard instances Consent Obtained: emergent situation Size (Gauge): 18 Technique Used: direct puncture technique Post-Procedure: line sutured into place Patient Tolerated Procedure: well Complications: none - Central Line Placement Right Femoral Consent Obtained: verbal consent, emergent situation Patient Placed on Monitor/Pulse Ox: Yes MD Prep: mask, gown, gloves Central Line Prep: Chlorhexidine scrub Local Anesthesia Used: Lidocaine 2% Ultrasound Used for Placement: Yes Central Line Lumen Inserted: triple Bloods Obtained for Lab: No Central Line Position: good blood return, all ports aspirated, flushed, capped, sutured in place with nylon Dressing Applied: Tegaderm Patient Tolerated Procedure: well Complications: none - Intubation Sedative: Etomidate Mg Given: 20 Mg Given: 50 Laryngoscope: fiber optic video scope Size: 3 ET Tube Size: 7.5 ET Tube Uncuffed: No Tube Secured Depth (cm): 24 Tube Secured Location: teeth Tube Placement Confirmation: visualized tube passing through cords, equal breath sounds bilaterally, confirmation by capnometry Patient Tolerated Procedure: well Intubation Complications: none Medical Decision Making - Lab Data Result diagrams: 01/05/23 13:13 01/05/23 13:13 Lab Results 01/05/23 01/05/23 01/05/23 Range/Units 11:22 13:10 13:13 WBC (3.8-10.6) k/uL RBC (4.30-5.90) m/uL Hgb (13.0-17.5) gm/dL Hct (39.0-53.0) % MCV (80.0-100.0) fL MCH (25.0-35.0) pg MCHC (31.0-37.0) g/dL RDW (11.5-15.5) % Plt Count (150-450) k/uL MPV Neutrophils % % Lymphocytes % % Monocytes % % Eosinophils % % Basophils % % Neutrophils # (1.3-7.7) k/uL Lymphocytes # (1.0-4.8) k/uL Monocytes # (0-1.0) k/uL Eosinophils # (0-0.7) k/uL Basophils # (0-0.2) k/uL Manual Slide Review Anisocytosis Macrocytosis PT (9.0-12.0) sec INR (<1.2) APTT (22.0-30.0) sec Sodium (137-145) mmol/L Potassium (3.5-5.1) mmol/L Chloride (98-107) mmol/L Carbon Dioxide (22-30) mmol/L Anion Gap mmol/L BUN (9-20) mg/dL Creatinine (0.66-1.25) mg/dL Est GFR (CKD-EPI)AfAm (>60 ml/min/1.73 sqM) Est GFR (CKD-EPI)NonAf (>60 ml/min/1.73 sqM) Glucose (74-99) mg/dL POC Glucose (mg/dL) 128 H (70-110) mg/dL POC Glu Mononitrotoluene Operator ID Jessica Sánchez Plasma Lactic Acid Alexey (0.7-2.0) mmol/L Calcium (8.4-10.2) mg/dL Magnesium (1.6-2.3) mg/dL Total Bilirubin (0.2-1.3) mg/dL AST (17-59) U/L ALT (4-49) U/L Alkaline Phosphatase (38-126) U/L Total Protein (6.3-8.2) g/dL Albumin (3.5-5.0) g/dL Blood Type O Positive Blood Type Confirm O Positive Blood Type Recheck No Previous Record Bld Type Recheck Status CABO Indicated Crossmatch See Detail Spec Expiration Date 01/08/2023 - 231201/05/23 01/05/23 01/05/23 Range/Units 13:13 13:13 13:13 WBC 17.8 H (3.8-10.6) k/uL RBC 3.15 L (4.30-5.90) m/uL Hgb 10.5 L (13.0-17.5) gm/dL Hct 31.4 L (39.0-53.0) % MCV 99.9 (80.0-100.0) fL MCH 33.3 (25.0-35.0) pg MCHC 33.3 (31.0-37.0) g/dL RDW 19.3 H (11.5-15.5) % Plt Count 97 L (150-450) k/uL MPV 9.9 Neutrophils % 85 % Lymphocytes % 5 % Monocytes % 7 % Eosinophils % 1 % Basophils % 0 % Neutrophils # 15.1 H (1.3-7.7) k/uL Lymphocytes # 0.9 L (1.0-4.8) k/uL Monocytes # 1.3 H (0-1.0) k/uL Eosinophils # 0.1 (0-0.7) k/uL Basophils # 0.1 (0-0.2) k/uL Manual Slide Review Performed Anisocytosis Slight Macrocytosis Moderate PT 27.3 H (9.0-12.0) sec INR 2.8 H (<1.2) APTT 40.9 H (22.0-30.0) sec Sodium 135 L (137-145) mmol/L Potassium 4.5 (3.5-5.1) mmol/L Chloride 97 L (98-107) mmol/L Carbon Dioxide 19 L (22-30) mmol/L Anion Gap 19 mmol/L BUN 84 H (9-20) mg/dL Creatinine 11.11 H* (0.66-1.25) mg/dL Est GFR (CKD-EPI)AfAm 5 (>60 ml/min/1.73 sqM) Est GFR (CKD-EPI)NonAf 4 (>60 ml/min/1.73 sqM) Glucose 137 H (74-99) mg/dL POC Glucose (mg/dL) (70-110) mg/dL POC Glu Mononitrotoluene Operator ID Plasma Lactic Acid Alexey (0.7-2.0) mmol/L Calcium 7.2 L (8.4-10.2) mg/dL Magnesium 1.9 (1.6-2.3) mg/dL Total Bilirubin 8.2 H (0.2-1.3) mg/dL AST 72 H (17-59) U/L ALT 30 (4-49) U/L Alkaline Phosphatase 196 H (38-126) U/L Total Protein 5.8 L (6.3-8.2) g/dL Albumin 2.3 L (3.5-5.0) g/dL Blood Type Blood Type Confirm Blood Type Recheck Bld Type Recheck Status Crossmatch Spec Expiration Date 01/05/23 Range/Units 13:13 WBC (3.8-10.6) k/uL RBC (4.30-5.90) m/uL Hgb (13.0-17.5) gm/dL Hct (39.0-53.0) % MCV (80.0-100.0) fL MCH (25.0-35.0) pg MCHC (31.0-37.0) g/dL RDW (11.5-15.5) % Plt Count (150-450) k/uL MPV Neutrophils % % Lymphocytes % % Monocytes % % Eosinophils % % Basophils % % Neutrophils # (1.3-7.7) k/uL Lymphocytes # (1.0-4.8) k/uL Monocytes # (0-1.0) k/uL Eosinophils # (0-0.7) k/uL Basophils # (0-0.2) k/uL Manual Slide Review Anisocytosis Macrocytosis PT (9.0-12.0) sec INR (<1.2) APTT (22.0-30.0) sec Sodium (137-145) mmol/L Potassium (3.5-5.1) mmol/L Chloride (98-107) mmol/L Carbon Dioxide (22-30) mmol/L Anion Gap mmol/L BUN (9-20) mg/dL Creatinine (0.66-1.25) mg/dL Est GFR (CKD-EPI)AfAm (>60 ml/min/1.73 sqM) Est GFR (CKD-EPI)NonAf (>60 ml/min/1.73 sqM) Glucose (74-99) mg/dL POC Glucose (mg/dL) (70-110) mg/dL POC Glu Mononitrotoluene Operator ID Plasma Lactic Acid Alexey 5.9 H* (0.7-2.0) mmol/L Calcium (8.4-10.2) mg/dL Magnesium (1.6-2.3) mg/dL Total Bilirubin (0.2-1.3) mg/dL AST (17-59) U/L ALT (4-49) U/L Alkaline Phosphatase (38-126) U/L Total Protein (6.3-8.2) g/dL Albumin (3.5-5.0) g/dL Blood Type Blood Type Confirm Blood Type Recheck Bld Type Recheck Status Crossmatch Spec Expiration Date Disposition Clinical Impression: Hemorrhagic shock Disposition: OTHER INSTITUTION NOT DEFINED Condition: Critical Referrals: Devin Bauman MD [Primary Care Provider] - 1-2 days Time of Disposition: 13:39 - Out of Hospital Transfer - Req. Specs Out of Hospital Transfer - Requested Specifics: Other Emergency Center ([facility])
[2023-01-05 11:33] LABS: Glucose,Whole Blood 128 mg/dL (70-110)
[2023-01-05] MEDS ORDERED: ROCURONIUM 10 MG/ML (5 ML VIAL) IV STA (12:19)
--- NOTE | 2023-01-05 12:43 | XR ---
EXAMINATION TYPE: XR chest 1V portable DATE OF EXAM: 01/05/2023 COMPARISON: 12/10/2022 HISTORY: Vomiting TECHNIQUE: Single frontal view of the chest is obtained. FINDINGS: There is no focal air space opacity, pleural effusion, or pneumothorax seen. The cardiac silhouette size is within normal limits. The osseous structures are intact. ET tube 2.5 cm above ca marci. NG tube in left upper quadrant. Bibasilar subsegmental consolidation. Chronic rib deformities a re seen. No overt failure. IMPRESSION: 1. Bibasilar atelectasis favored over pneumonia correlate clinically for confirmation. 2. NG tube appears in the left upper quadrant likely in the region of the gastric fundus
[2023-01-05] MEDS ORDERED: cefTRIAXone IN SWFI 1,000 MG/10 ML SYRINGE IVP STA (13:03)
[2023-01-05] MEDS ORDERED: ETOMIDATE 2 MG/ML 10 ML VIAL IVP STA (13:27)
[2023-01-05 13:28] LABS: Anisocytosis Slight; Basophils # (A) 0.1 k/uL (0-0.2); Basophils % (A) 0 %; Eosinophils # (A) 0.1 k/uL (0-0.7); Eosinophils % (A) 1 %; HCT 31.4 % (39.0-53.0); HGB 10.5 gm/dL (13.0-17.5); Lymphocytes # (A) 0.9 k/uL (1.0-4.8); Lymphocytes % (A) 5 %; MCH 33.3 pg (25.0-35.0); MCHC 33.3 g/dL (31.0-37.0); MCV 99.9 fL (80.0-100.0); Macrocytosis Moderate; Mean Platelet Volume 9.9; Monocytes # (A) 1.3 k/uL (0-1.0); Monocytes % (A) 7 %; Neutrophils # (A) 15.1 k/uL (1.3-7.7); Neutrophils % (A) 85 %; RBC 3.15 m/uL (4.30-5.90); RDW 19.3 % (11.5-15.5); WBC 17.8 k/uL (3.8-10.6)
[2023-01-05 13:42] LABS: Albumin 2.3 g/dL (3.5-5.0); Calcium 7.2 mg/dL (8.4-10.2); Magnesium 1.9 mg/dL (1.6-2.3); Potassium 4.5 mmol/L (3.5-5.1); Total Bilirubin 8.2 mg/dL (0.2-1.3); Total Protein 5.8 g/dL (6.3-8.2)
[2023-01-05 13:55] LABS: INR 2.8 (<1.2); Partial Thromboplastin Time 40.9 sec (22.0-30.0); Prothrombin Time 27.3 sec (9.0-12.0)
[2023-01-05 14:06] LABS: Platelet Count 97 k/uL (150-450)
[2023-01-05 18:49] VITALS: RESP 18
[2023-01-05 19:00] VITALS: BP 89/60; PULSE 82; TEMP 92.5
== END 2023-01-05 14:10 | disposition other institution (70) ==
LOC: EC 10:42
DX: R57.8 Other shock (principal); I48.91 Unspecified atrial fibrillation; K21.9 Gastro-esophageal reflux disease without esophagitis; Z79.899 Other long term (current) drug therapy
CPT/HCPCS: 36415; 93005; 86900; 86901; 80053; 83605; 83735; 85025; 85610; 85730; 86850; 86920; 87070; 87205; 71045; 99291; 99292; 96365; 96375 ×5; 31500; 36556; 36620; 36430; P9016; J2354; J0696; C9113